=== PATIENT | female | born 1950 | race Caucasian/White ===

== ENCOUNTER → 2017-12-07 | Outpatient (CLI) | payer MEDICARE ==
--- NOTE | 2017-12-07 11:37 | BD ---
EXAMINATION TYPE: MG DEXA axial skeleton. DATE OF EXAM: 12/07/2017 COMPARISON: NONE CLINICAL HISTORY: M81.0 Osteoporosis Height: 64 Weight: 159.1 FRAX RISK QUESTIONS: Alcohol (3 or more units per day): no Family History (Parent hip fracture): no Glucocorticoids (More than 3mos): no (Ex: prednisone, prednisolone, methylprednisolone, dexamethasone, and hydrocortisone). History of Fracture in Adulthood: no Secondary Osteoporosis: 1. Type 1 Diabetes: no 2. Hyperthyroidism: no 3. Menopause before 45: no 4. Malnutrition: no 5. Chronic liver disease: no Rheumatoid Arthritis: no Current Tobacco Use: no RISK FACTORS HISTORY OF: Hip Fracture (Right/Left): no Spine Fracture: no History of Wrist Fracture: no Surgery to Spine/Hip(right/left)/Wrist (right/left): no Family History of Osteoporosis: no Active: yes Diet low in dairy products/other sources of calcium: no/ takes calcium Postmenopausal woman: age 50 Lost more than 2 inches in height since high school: no Frequent falls: no Poor Health: no Hyperparathyroidism: no Adrenal Insufficiency: no MEDICATIONS: lyraca, lexapro, sleep aid, vitamins Additional History: EXAM MEASUREMENTS: Bone mineral densitometry was performed using the Rerecipe System. Bone mineral density as measured about the Lumbar spine is: ----- L1-L4(G/cm2): 1.143 T Score Values are as follows: ----- L2: -0.4 ----- L3: 0.3 ----- L4: 0.8 ----- L1-L4: -0.3 Bone mineral density has: decreased -5.2 % since study of: 12.17.2001 Bone mineral density about the R hip (g/cm2): 0.826 Bone mineral density about the L hip (g/cm2): 0.876 T Score values are as follows: -----R Neck: -1.5 -----L Neck: -1.2 -----R Total: -0.9 -----L Total: -0.5 Bone mineral density has: decreased -9.2 % since study of: 12.17.2001 IMPRESSION: No evidence for osteoporosis or osteopenia. NOTE: T-SCORE=SD OF THE YOUNG ADULT MEAN.
--- NOTE | 2017-12-08 09:20 | MM ---
Reason for exam: screening (asymptomatic). Last mammogram was performed 1 year and 1 month ago. History: Patient is postmenopausal and history of other cancer. Family history of breast cancer in maternal aunt at age 75. Took estrogen for 6 years beginning at age 50. Took progesterone for 6 years beginning at age 50. Physical Findings: A clinical breast exam by your physician is recommended on an annual basis and results should be correlated with mammographic findings. MG 3D Screening Mammo W/Cad Bilateral CC and MLO view(s) were taken. Prior study comparison: November 03, 2016, bilateral MG 3d diag mammo w/cad [facility]. May 01, 2016, right breast MG 3d diag mammo w/cad RT. There are scattered fibroglandular densities. Stable benign calcifications. There is no discrete abnormality. No significant changes when compared with prior studies. ASSESSMENT: Benign, BI-RAD 2 RECOMMENDATION: Routine screening mammogram of both breasts in 1 year.
== END | disposition home or self-care (01) ==
LOC: RADMAMWWP 09:38
PROVIDERS: ATTEND Family Medicine
DX: Z12.31 Encounter for screening mammogram for malignant neoplasm of breast (principal); Z13.820 Encounter for screening for osteoporosis
CPT/HCPCS: 77063; 77067; 77080

== ENCOUNTER → 2018-02-17 | Outpatient (CLI) | payer MEDICARE | END | disposition home or self-care (01) | LOC: LABWHC1 10:22 | PROVIDERS: ATTEND Psychiatry & Neurology Neurology | DX: M54.16 Radiculopathy, lumbar region (principal) | CPT/HCPCS: 36415; 82565 ==

== ENCOUNTER → 2018-02-24 | Outpatient (CLI) | payer MEDICARE ==
--- NOTE | 2018-02-24 10:45 | MR ---
EXAMINATION TYPE: MR lumbar spine wo/w con DATE OF EXAM: 02/24/2018 10:34 AM COMPARISON: NONE HISTORY: lumbar radiculopathy CONTRAST: The patient was injected with 7 mL intravenous Gadavist gadolinium contrast. Multiplanar, MultiSpin echo imaging of the lumbar spine was performed. Severe scoliotic curvature seen convex to the right. L1-L2: Moderate to severe disc desiccation. Circumferential disc bulge greatest posteriorly. Mild eff acement ventral thecal sac. No evidence for herniation or central stenosis. Degenerative change facet joints with mild bilateral foraminal encroachment. L2-L3: Moderate to severe disc desiccation. Circumferential disc bulge greatest posteriorly. Mild eff acement ventral thecal sac. No evidence for herniation or central stenosis. Degenerative change facet joints with mild bilateral foraminal encroachment. L3-L4: Moderate to severe disc desiccation. Circumferential disc bulge greatest posteriorly. Mild eff acement ventral thecal sac. No evidence for herniation or central stenosis. Degenerative change facet joints with mild bilateral foraminal encroachment. L4-L5: Severe disc desiccation. Posterior disc endplate complex. Effacement ventral thecal sac. No ev idence for herniation or central stenosis. Moderate bilateral foraminal encroachment. L5-S1: Severe disc desiccation. Grade 1 anterolisthesis L5 on S1 measuring 4 mm. Posterior disc bulge without herniation or central stenosis. Facet joint arthropathy with bilateral foraminal encroachmen t and moderate to on the right. Lumbar segments are intact. No paraspinal masses are identified. Conus medullaris has a normal appe arance. Ventral spondylosis noted. IMPRESSION: 1. Multilevel degenerative disc disease as discussed. 2. Multilevel disc bulging and foraminal encroachment.
== END ==
LOC: RADMRIMAIN 09:50
PROVIDERS: ATTEND Psychiatry & Neurology Neurology
DX: M51.26 Other intervertebral disc displacement, lumbar region (principal); M43.17 Spondylolisthesis, lumbosacral region; M51.36 Other intervertebral disc degeneration, lumbar region; M46.96 Unspecified inflammatory spondylopathy, lumbar region
CPT/HCPCS: 72158; A9581

== ENCOUNTER → 2018-06-22 | Outpatient (CLI) | payer MEDICARE ==
--- NOTE | 2018-06-22 10:52 | MR ---
EXAMINATION TYPE: MR shoulder RT wo con DATE OF EXAM: 06/22/2018 COMPARISON: Plain film 06/01/2018 HISTORY: Right shoulder pain TECHNIQUE: Multiplanar, multisequence imaging of the right shoulder is performed without contrast. FINDINGS: Rotator Cuff: There is a tear of the supraspinatus tendon with retraction to the level of the acromio n, infraspinatus tendon is markedly attenuated level of its insertion. Acromioclavicular Joint: Arthropathy changes present as noted on plain film Glenohumeral Joint: There is arthropathy change with marginal spurring. Labrum: Superior labrum shows some increased internal signal, there may be SLAP lesion present. Biceps Tendon: Tendon appears attenuated but shows normal position, fluid signal courses along its po sition. Findings could be due to tendinosis Bone marrow signal: There is extensive increased T2 weighted signal within the humeral head which may be due to reactive marrow edema Other: There is a joint effusion present. Fluid is present in the subacromial subdeltoid bursa. Fluid signal also present along the subscapularis tendon is some muscle edema suspected IMPRESSION: Rotator cuff tear and additional findings above.
== END | disposition home or self-care (01) ==
LOC: RADMRIMAIN 09:29
PROVIDERS: ATTEND Orthopaedic Surgery
DX: M75.101 Unspecified rotator cuff tear or rupture of right shoulder, not specified as traumatic (principal)

== ENCOUNTER 2018-08-12 07:24 | Day surgery (SDC) | payer MEDICARE ==
[2018-08-09 14:28] VITALS: BMI 26.6
--- NOTE | 2018-08-11 18:18 | HP ---
HISTORY AND PHYSICAL DATE OF SURGERY: 08/12/2018 Carine Melendez is a 67-year-old patient seen with progressive right shoulder pain. Treatment options were discussed with her. She elected to proceed with right shoulder arthroscopy. Consent was obtained, clearance provided by Dr. Agee. PAST MEDICAL HISTORY: Hypertension. PAST SURGICAL HISTORY: 1. Cholecystectomy. 2. Hand surgery. 3. Right knee arthroscopy. 4. Left shoulder arthroscopy. DAILY MEDICATIONS: 1. Clonazepam. 2. Lexapro. 3. Lyrica. ALLERGIES: NONE. SOCIAL HISTORY: Patient denies tobacco use. PHYSICAL EVALUATION OF THE RIGHT SHOULDER: Flexion is 140 degrees. Abduction is 130 degrees. External rotation is 30 degrees with weakness. Tenderness along the anterolateral acromion and rotator cuff insertion site. Impingement positive at 80 degrees. Drop-arm sign positive. Distal neurovascular exam is intact. RIGHT SHOULDER RADIOGRAPHS: Right shoulder radiographs revealed a type 2 anterior acromion, acromioclavicular joint osteoarthritis and cystic changes of the tuberosity. An MRI of the right shoulder revealed a retracted rotator cuff tear. IMPRESSION: 1. Right shoulder impingement with retracted rotator cuff tear. 2. Right shoulder acromioclavicular joint osteoarthritis. PLAN: Right shoulder arthroscopy with subacromial decompression, possible arthroscopic rotator cuff repair, possible Britta procedure and debridement. MMODL / IJN: [id number] /
[~2018-08-12 07:24] MED LIST: DEXAMETHASONE SOD PHOSPHATE 10 MG/ML 1 ML VIAL IV ONE; HYDROmorphone 0.5 MG/0.5 ML SYRINGE IVP PRN; LACTATED RINGERS 1,000 ML IV SCH; MIDAZOLAM 2 MG/2 ML VIAL IV PRN; ONDANSETRON 4 MG/2 ML VIAL IVP ONE; ceFAZolin 1,000 MG in DEXTROSE/WATER 1 50ML.BAG IV ONE
[2018-08-12] MEDS ORDERED: LIDOCAINE 1% 20 ML VIAL (10MG/ML) FOR IV START INTRADERMA ONE (08:13)
[2018-08-12] MEDS ORDERED: MIDAZOLAM 2 MG/2 ML VIAL ONE ×2 (08:47→09:13)
[2018-08-12] MEDS ORDERED: ROPIVACAINE 5 MG/ML 30 ML VIAL ONE (09:13)
[2018-08-12] MEDS ORDERED: fentaNYL (PF) 50 MCG/ML 2 ML AMP ONE (09:13)
[2018-08-12] MEDS ORDERED: PHENYLEPHRINE-0.9% NACL SYG 1 MG/10 ML SYRINGE ONE (09:13)
[2018-08-12] MEDS ORDERED: PROPOFOL 10 MG/ML 20 ML VIAL IV ONE (09:13)
[2018-08-12] MEDS ORDERED: ePHEDrine SULFATE/0.9% NACL/PF 50 MG/5 ML SYRINGE IV ONE (09:13)
[2018-08-12] MEDS ORDERED: KETOROLAC 30 MG/ML 1 ML VIAL ONE (09:13)
[2018-08-12] MEDS ORDERED: SUCCINYLCHOLINE CHLORIDE 100 MG/5 ML SYR IV ONE (09:13)
[2018-08-12] MEDS ORDERED: LACTATED RINGERS 1,000 ML IV ONE (10:45)
[2018-08-12 11:15] VITALS: TEMP 97
--- NOTE | 2018-08-12 11:16 | P.OP ---
Date of Procedure: 08/12/18 Preoperative Diagnosis: Right shoulder impingement Postoperative Diagnosis: 1. Right shoulder rotator cuff tear 2. Right shoulder impingement 3. Right shoulder acromioclavicular joint osteoarthritis 4. Right shoulder glenohumeral joint osteoarthritis 5. Right shoulder partial long head biceps tendon tear 6. Right shoulder labral tear Procedure(s) Performed: 1. Right shoulder arthroscopic rotator cuff repair 2. Right shoulder arthroscopic subacromial decompression 3. Right shoulder arthroscopic Britta procedure 4. Right shoulder arthroscopic chondroplasty humeral head 5. Right shoulder arthroscopic biceps tenotomy 6 Right shoulder arthroscopic debridement labral tear Implants: 2-4.75 Arthrex swivel lock anchors 2-5.5 Arthrex swivel lock anchors Anesthesia: GETA, regional (Interscalene block) Surgeon: Navin Clay Leather Repairer #1: Clifford Perea Estimated Blood Loss (ml): 8 Pathology: none sent Condition: stable Disposition: PACU Indications for Procedure: 67-year-old patient seen with progressive right shoulder pain. After having treatment options discussed, she elected to proceed with arthroscopy. Operative Findings: See description of procedure Description of Procedure: Patient underwent an interscalene block by department of anesthesia. The patient was then taken to the operative suite. The patient underwent a general anesthetic by the department of anesthesia. The patient was placed into a lateral position and secured. There was appropriate padding of the bony prominence. Right shoulder was then prepped and draped in normal sterile orthopedic fashion. We placed the extremity in 10 pounds of longitudinal traction. A posterior incision was now made for a posterior working portal site. The trocar and cannula were inserted into the glenohumeral joint. Arthroscopy was initiated. Spinal needle was now inserted anteriorly, to ascertain the anterior working portal site. An incision was now made in that area, a trocar was inserted followed by a probe. There were grade 3 and 4 chondromalacia changes of the humeral head with some diffuse osteochondral tears present along the central portion of the humeral head. There were grade 3 chondral moist changes of the glenoid fossa more anteriorly. There was a significant partial tear long head biceps tendon approaching 85%. There was a massive rotator cuff tear clearly visualized from glenohumeral side. There was superficial tearing of the labrum anteriorly and superiorly. No loose bodies were identified. I performed an arthroscopic biceps tenotomy. I debrided the superficial labral tears getting down to stable tissue. I performed a chondroplasty of the humeral head getting down to stable osteochondral tissue. The residual labrum was stable. The residual osteochondral surface was stable. Instruments now removed from glenohumeral joint. Utilizing the posterior working portal site, the trocar and cannula were inserted into the subacromial space. Arthroscopy initiated. I made an incision 2 fingerbreadths lateral to the acromion. I introduced my trocar followed by my ArthroCare ablator. I now began ablating thick subacromial bursal tissue, which exposed the undersurface of the anterior acromion. There was diminished subacromial space. There was a very prominent anterior acromion. A motorized bur was introduced and a subacromial decompression was performed. I also excised some osteophytes off the inferior aspect of the distal clavicle. The AC joint was visualized and noted to be fairly arthritic. The motorized bur was introduced in the anterior portal site and a Britta procedure was performed without difficulty, decompressing the AC joint nicely. I turned my attention to the rotator cuff. There was a 3.5 cm rotator cuff tear with about 1 cm of retraction. I debrided the margins getting down to stable tendon tissue. I introduced my motorized bur and abraded the footprint area, getting some petechial bleeding. I now made an accessory portal site off the lateral aspect of the acromion. I punched 2 holes medial for medial row fixation with the assistance of Uriah READ carefully tapping the punch with a mallet as I held the punch and the camera. I now introduced both anchors into the pre- punched holes and Uriah READ tapped them with the mallet as I held anchors and the camera. Uriah READ now screwed the anchors in place a while I held the anchor guide and camera. All 8 limbs of suture were now passed through good bites of rotator cuff tendon. I now punched 2 holes for lateral row fixation again I held the punch and camera while Uriah READ used a mallet to tap in the punch. We now passed sutures through both anchors and individually I introduced the anchors into the pre-punch holes I held the anchor guide in position with one hand holding the camera with the other hand while Uriah READ tensioned the sutures and screwed in the anchors one at a time. All residual suture limbs were now clipped. There were a few areas with some prominent dogears. I passed additional sutures through those areas introduced and additional anchor laterally which helped bring and compressed those areas down nicely into our abraded footprint. Those sutures were clipped. We had good compression of the tendon along the entire footprint. I injected 1 mL Renue intra-articular Instruments now removed from the portal sites. All portal sites were approximated with nylon suture. Sterile dressings were applied followed by a shoulder immobilizer. Clifford READ assisted in this complex case. The patient was awakened, transferred to a bed, and taken to recovery in stable condition.
[2018-08-12 11:25] VITALS: RESP 16
[2018-08-12 13:00] VITALS: BP 142/67; PULSE 65
--- NOTE | 2018-08-15 08:20 | P.ONQ ---
Anesthesiology Proc Note - PNB - Peripheral Nerve Block Performed Interscalene Single Time Out Performed: Yes Procedure Start Time: 08:50 Procedure Stop Time: :54 Indication: Acute Post-Operative Pain, Requested by physician Sedation Type: Sedate with meaningful contact maintained Preparation: Sterile Prep Needle Size: 50mm (2") Needle Gauge: 21 Technique: Ultrasound Injectate: 0.5% Ropivacaine (see comment for volume) (ropi .5% 30cc) Blood Aspirated: No Pain Paresthesia on Injection Noted: No Resistance on Injection: Normal Events: Uneventful and Well Tolerated
== END 2018-08-12 13:29 | disposition home or self-care (01) ==
LOC: OR 07:24
PROVIDERS: ATTEND Orthopaedic Surgery
DX: M75.101 Unspecified rotator cuff tear or rupture of right shoulder, not specified as traumatic (principal); M75.41 Impingement syndrome of right shoulder; M19.011 Primary osteoarthritis, right shoulder; S46.111A Strain of muscle, fascia and tendon of long head of biceps, right arm, initial encounter; S43.491A Other sprain of right shoulder joint, initial encounter; X58.XXXA Exposure to other specified factors, initial encounter; M94.211 Chondromalacia, right shoulder; M25.711 Osteophyte, right shoulder; F32.9 Major depressive disorder, single episode, unspecified; Z79.899 Other long term (current) drug therapy; Z79.82 Long term (current) use of aspirin; Z90.49 Acquired absence of other specified parts of digestive tract
CPT/HCPCS: 29824; 29827; 29826; 64415; 84132; C1713 ×3; C1894; C1765; J2250; J1100; J2405; J3010; J1885; J0690; J2795; J2370; J0330; J2704

== ENCOUNTER → 2018-12-03 | Outpatient (CLI) | payer MEDICARE | END | disposition home or self-care (01) | LOC: LABPAT 11:30 | PROVIDERS: ATTEND Orthopaedic Surgery | DX: Z01.812 Encounter for preprocedural laboratory examination (principal) | CPT/HCPCS: 87070 ==

== ENCOUNTER → 2018-12-08 | Outpatient (CLI) | payer MEDICARE ==
--- NOTE | 2018-12-12 14:43 | MM ---
Reason for exam: screening (asymptomatic). Last mammogram was performed 1 year ago. History: Patient is postmenopausal and history of other cancer. Family history of breast cancer in maternal aunt at age 75. Took estrogen for 6 years beginning at age 50. Took progesterone for 6 years beginning at age 50. MG 3D Screening Mammo W/Cad Bilateral CC and MLO view(s) were taken. Prior study comparison: December 07, 2017, bilateral MG 3d screening mammo w/cad. November 03, 2016, bilateral MG 3d diag mammo w/cad [facility]. There are scattered fibroglandular densities. There is a stable focal asymmetry in the left upper anterior breast. No significant changes when compared with prior studies. ASSESSMENT: Benign, BI-RAD 2 RECOMMENDATION: Routine screening mammogram of both breasts in 1 year.
== END | disposition home or self-care (01) ==
LOC: RADMAMWWP 08:43
PROVIDERS: ATTEND Family Medicine
DX: Z12.31 Encounter for screening mammogram for malignant neoplasm of breast (principal)
CPT/HCPCS: 77063; 77067

== ENCOUNTER 2019-01-10 07:57 | Inpatient (IN) | payer MEDICARE ==
--- NOTE | 2019-01-09 11:09 | HP ---
HISTORY AND PHYSICAL REASON FOR ADMISSION: Surgery scheduled for 01/10/2019 HISTORY OF PRESENT ILLNESS: Carine Melendez is a 68-year-old patient seen with painful unstable right total knee arthroplasty. Failing conservative treatment measures. We discussed options. She elected to proceed with revision right total knee arthroplasty. Consent regarding procedure obtained. Medical clearance was provided by Dr. Agee. PAST MEDICAL HISTORY: Hypertension. PAST SURGICAL HISTORY: Cholecystectomy, right knee arthroscopy, right total knee arthroplasty, shoulder arthroscopy. MEDICATIONS: , Lexapro, Lyrica, [id number] vitamins. ALLERGIES: None reported. SOCIAL HISTORY: She denies current tobacco use. PHYSICAL EXAMINATION: Evaluation of the right knee range of motion is +1 to 130. She has +3 Saray, +1 MCL. Hip rotation without pain. Distal neurovascular exam intact. RADIOGRAPHS: Radiographs of the right knee revealed a stable-appearing total knee arthroplasty. IMPRESSION: Painful/unstable right total knee arthroplasty. PLAN: Revision right total knee arthroplasty. Surgery scheduled for 01/10/2019. MMODL / IJN: [id number] /
[~2019-01-10 07:57] MED LIST changes: +ACETAMINOPHEN TAB 500 MG TAB PO ONE; -DEXAMETHASONE SOD PHOSPHATE 10 MG/ML 1 ML VIAL IV ONE; -HYDROmorphone 0.5 MG/0.5 ML SYRINGE IVP PRN; -LACTATED RINGERS 1,000 ML IV SCH; +LIDOCAINE 1% 20 ML VIAL (10MG/ML) FOR IV START INTRADERMA PRN; +MELOXICAM 7.5 MG TAB PO ONE; +MIDAZOLAM (PF) 2 MG/2 ML VIAL IV PRN; -MIDAZOLAM 2 MG/2 ML VIAL IV PRN; -ONDANSETRON 4 MG/2 ML VIAL IVP ONE; +TRANEXAMIC ACID 1,000 MG in SODIUM CHLORIDE 0.9% 100 ML IVPB ONE; -ceFAZolin 1,000 MG in DEXTROSE/WATER 1 50ML.BAG IV ONE; +ceFAZolin IN SWFI 2 GM/20 ML SYRINGE IVP ONE; +fentaNYL (PF) 50 MCG/ML 2 ML AMP IV PRN; +fentaNYL (PF) 50 MCG/ML 2 ML AMP IVP PRN
[2019-01-10 08:14] VITALS: RESP 16
[2019-01-10] MEDS: LACTATED RINGERS 1,000 ML IV SCH ×3 (08:41→17:43)
[2019-01-10] MEDS ORDERED: ONDANSETRON 4 MG/2 ML VIAL IVP ONE ×2 (08:48)
[2019-01-10] MEDS ORDERED: DEXAMETHASONE SOD PHOSPHATE 10 MG/ML 1 ML VIAL IV ONE ×2 (08:49)
[2019-01-10] MEDS ORDERED: MIDAZOLAM 2 MG/2 ML VIAL IV ONE (08:52)
[2019-01-10] MEDS ORDERED: ROPIVACAINE 1,100 MG, SODIUM CHLORIDE 0.9% 500 ML 330 ML MISCELLANE PRN ×2 (09:11)
--- NOTE | 2019-01-10 09:12 | P.ONQ ---
Anesthesiology Proc Note - PNB - Peripheral Nerve Block Performed Right Adductor Canal Infusion Time Out Performed: Yes Procedure Start Time: 08:53 Procedure Stop Time: 09:15 Indication: Acute Post-Operative Pain, Requested by physician Sedation Type: Sedate with meaningful contact maintained Preparation: Sterile Dressing Position: Supine Catheter: Indwelling Needle Types: On-Q Needle Size: 100mm (4") Needle Gauge: 21 Technique: Ultrasound Injectate: 0.5% Ropivacaine (see comment for volume) (ropi .5% 20cc) Blood Aspirated: No Pain Paresthesia on Injection Noted: No Resistance on Injection: Normal Events: Uneventful and Well Tolerated
[2019-01-10] MEDS ORDERED: MIDAZOLAM 2 MG/2 ML VIAL ONE (09:46)
[2019-01-10] MEDS ORDERED: SODIUM CHLORIDE 0.9% 100 ML BAG ONE (09:46)
[2019-01-10] MEDS ORDERED: TRANEXAMIC ACID 1,000 MG/10 ML VIAL ONE (09:46)
[2019-01-10] MEDS ORDERED: PROPOFOL 10 MG/ML 20 ML VIAL IV ONE (09:46)
[2019-01-10] MEDS ORDERED: fentaNYL (PF) 50 MCG/ML 2 ML AMP ONE (09:46)
[2019-01-10] MEDS ORDERED: ceFAZolin 3,000 MG in SODIUM CHLORIDE 0.9% IRRIGATIO 3,000 ML IRRIGATION ONE (09:51)
[2019-01-10] MEDS: ROPIVACAINE 246.25 MG, EPINEPHrine 0.5 MG, KETOROLAC 30 MG, cloNIDine HCL/PF 80 MCG, WA... MISCELLANE ONE ×10 (10:18→11:40)
[2019-01-10] MEDS ORDERED: LACTATED RINGERS 1,000 ML IV ONE ×2 (10:45)
--- NOTE | 2019-01-10 12:19 | P.OP ---
Date of Procedure: 01/10/19 Preoperative Diagnosis: Painful/unstable right total knee arthroplasty Postoperative Diagnosis: Same Procedure(s) Performed: Revision right total knee arthroplasty Implants: 1. Depuy Sigma TC 3 size 2.5 right cemented femur with an appropriate femoral adapter and bulk 75 mm x 14 mm fluted and a full porous 31 mm femoral sleeve 2. Depuy Sigma cemented rotating MBT revision size 2 tibial baseplate with a 37 mm metaphyseal porous coated sleeve and 75 x 14 mm fluted stem 3. Depuy Sigma polyethylene tibial rotating platform TC 3 size 2-20 mm Anesthesia: regional (Adductor canal catheter), local, spinal Surgeon: Navin Clay Credit Administrator #1: Clifford Perea Estimated Blood Loss (ml): 75 Pathology: none sent Condition: stable Disposition: PACU Indications for Procedure: 68patient seen with a unstable/painful right total knee arthroplasty failing conservative treatment measures. After we had discussed options she elected to proceed with revision right total knee arthroplasty. Operative Findings: See description of procedure Description of Procedure: The patient was taken to the operative suite after having and adductor canal catheter placed by the department of anesthesia. She received preoperative IV antibiotics. She underwent a spinal anesthetic by the department of anesthesia. A well-padded tourniquet was placed on the proximal right thigh. The right lower extremity was prepped and draped in the normal sterile orthopedic fashion. The extremity was elevated and the tourniquet was insufflated to 300. An incision was now made over the previous cicatrix sharply through skin. Dissection was taken down to the extensor mechanism. A medial arthrotomy was performed. The patella was everted and knee was flexed. There was obvious significant instability mid flexion but also even in extension and flexion. We remove the polyethylene component. I used a small saw blade to get between the bone cement interface. The femur came out with no difficulty at all and seemed actually somewhat loose. We now used the same technique to remove the tibia the tibia was well cemented, with a fair amount of bone attached to it. I began serial reaming the tibia until I got to the right size for fixation for stem. We now began with our tibial side using our broaches for sleeve until we got to the right size. A freshen up cut was now made. We now turned our attention to the femur. We began serial reaming until the right size for stability was noted. We now attached the distal femoral cutting jig and made appropriate cuts freshening up the distal femur were made. At this point we began serial broaching for our sleeve until we got to the right size. At this point trial components were placed in position. I took the knee through range of motion and increase polyethylene until the right size gave us the appropriate stability. The patella tracked well and it was stable and secure. We now removed her trial components. I now irrigated the wound copiously with pulse lavage mechanical irrigation. I used local analgesic infiltrated the posterior capsule. We now chose a appropriate components and they were assembled on the back table with my assistance as well as Uriah READ's assistance. We now began mixing her methylmethacrylate. Once it was ready was placed behind knee components making sure not to get onto the porous sleeves. We reintroduced our tibial component tapped down until was secure. We now introduced our femoral component tapping it down until secure. All excess methacrylate was removed. We inserted a 17.5 by a thin tibial insert. When taken to extension and noted some hyperextension of the knee. We kept the polyethylene in position until the methyl fact relate hardened. We now removed that 17.5 polyethylene tibial insert. I trialed a 20 mm insert and it fit much better. We now chose the 20 mm rotating platform polyethylene tibial insert and placed into position. I took the knee through range of motion with good overall range of motion and excellent stability at this point. The tourniquet was released. Additional hemostasis was achieved via electrocautery. The subcu soft tissues were infiltrated local analgesic. We repaired the extensor mechanism with #3 Vicryl. We checked the repair and it was stable. Subcutaneous soft tissues were repaired in layers with 2-0 Vicryl. The skin was approximated with cutaneous suture and exophin skin glue. Sterile dressings were applied followed by loose webril and Ilir bandage. Uriah READ assisted with this complex procedure.
[2019-01-10] MEDS ORDERED: ONDANSETRON 4 MG/2 ML VIAL IVP PRN (12:20)
[2019-01-10] MEDS ORDERED: NALOXONE 0.4 MG/ML 1 ML VIAL IV PRN (12:20)
[2019-01-10] MEDS ORDERED: HYDROcodone/APAP 5-325MG 1 EACH TAB PO PRN (12:20)
[2019-01-10] MEDS ORDERED: traMADol 50 MG TAB PO PRN (12:20)
[2019-01-10] MEDS ORDERED: HYDROmorphone 0.5 MG/0.5 ML SYRINGE IVP PRN ×3 (12:20)
--- NOTE | 2019-01-10 13:01 | XR ---
EXAMINATION TYPE: XR knee limited RT DATE OF EXAM: 01/10/2019 COMPARISON: 09/11/2014 HISTORY: Knee prosthesis revision TECHNIQUE: 2 view right knee FINDINGS: Tibial and femoral components of in place. Postsurgical changes are within the soft tissues . Small chip fracture from the lateral femoral condyle not excluded. No additional areas suspicious for fracture are evident. IMPRESSION: 1. Small nondisplaced chip fracture of the lateral femoral condyle may be present on the frontal pro jection. 2. No additional areas suspicious for fracture is evident.
[2019-01-10 15:49] VITALS: BMI 27.1
--- NOTE | 2019-01-10 15:55 | P.CONS ---
History of Present Illness - Reason for Consult Consult date: 01/10/19 medical management Requesting physician: Navin Clay - History of Present Illness This is a [address] Agee. Patient presented for an elective right total knee arthoplasty revision with Dr. Clay. patient has past medical history of skin cancer, osteoarthritis, herniated disc in back and anxiety. patient denies any cardiac history. Patient denies diabetes or COPD. At this time patient denies chest pain or shortness of breath. Patient denies nausea vomiting or diarrhea. Patient denies any urinary burning or frequency. Review of Systems please refer to HPI otherwise unremarkable Past Medical History Past Medical History: Cancer, Osteoarthritis (OA) Additional Past Medical History / Comment(s): SCOLIOSIS, HERNIATED DISC WITH BACK PAIN, HX SKIN CANCER. RIGHT KNEE PAIN. History of Any Multi-Drug Resistant Organisms: None Reported Past Surgical History: Cholecystectomy, Joint Replacement, Orthopedic Surgery Additional Past Surgical History / Comment(s): RIGHT KNEE ARTHROSCOPY, TOTAL RIGHT KNEE (AUG 2014), RIGHT ROTATOR CUFF., HEIDY CARPAL TUNNEL. LEFT SHOULDER X3. Past Anesthesia/Blood Transfusion Reactions: No Reported Reaction Past Psychological History: Anxiety Smoking Status: Never smoker Past Alcohol Use History: None Reported Past Drug Use History: None Reported - Past Family History Father Family Medical History: Diabetes Mellitus Medications and Allergies Home Medications Medication Instructions Recorded Confirmed Type Aspirin [Adult Low Dose Aspirin EC] 81 mg PO DAILY 08/12/18 01/10/19 History Escitalopram [Lexapro] 5 mg PO DAILY 08/12/18 01/10/19 History Fish Oil/Dha/Epa [Fish Oil 1,200 1 cap PO DAILY 08/12/18 01/10/19 History mg Fish Oil] Multivitamins, Thera [Multivitamin 1 tab PO DAILY 08/12/18 01/10/19 History (formulary)] Pregabalin [Lyrica] 50 mg PO HS 08/12/18 01/10/19 History Cranberry Fruit Extract [Cranberry] 500 mg PO DAILY 01/03/19 01/10/19 History L.acidoph,Paracasei, B.lactis 1 cap PO DAILY 01/03/19 01/10/19 History [Probiotic] Naproxen Sodium [Aleve] 440 mg PO BID PRN 01/03/19 01/10/19 History Turmeric Root Extract [Turmeric] 1,000 mg PO DAILY 01/03/19 01/10/19 History Vit C/E/Zn/Coppr/Lutein/Zeaxan 1 cap PO DAILY 01/03/19 01/10/19 History [Preservision Areds 2 Softgel] clonazePAM [KlonoPIN] 1 mg PO HS 01/03/19 01/10/19 History Allergies Allergy/AdvReac Type Severity Reaction Status Date / Time No Known Allergies Allergy Verified 01/10/19 12:09 Physical Exam Vitals: Vital Signs Temp Pulse Resp BP Pulse Ox 01/10/19 13:18 75 16 127/65 96 01/10/19 13:01 71 16 129/66 97 01/10/19 12:47 70 16 131/62 98 01/10/19 12:33 97.8 F 77 16 128/62 100 01/10/19 08:13 98.4 F 68 16 156/79 97 Intake and Output 01/10/19 01/10/19 01/10/19 06:59 14:59 22:59 Intake Total 1251 Output Total 75 Balance 1176 Intake: IV 1251 Output: Estimated Blood Loss 75 Head normocephalic Neck supple Lungs clear to auscultation bilaterally no wheezing or crackles Heart regular rate and rhythm S1-S2, no rub or gallop Abdomen is soft nontender nondistended positive bowel sounds no hepatosplenomegaly Extremities no edema. Right knee dressing clean dry and intact Neuro alert and orientated to 3 Assessment and Plan Assessment: 1. Status post right knee arthroplasty revision with Dr. Milian. Patient currently on Lovenox for DVT prophylaxis pain meds per orthopedic services 2. History of anxiety. Home meds resumed 3. History of osteoarthritis 4.history of herniated disc with back pain 5. History of skin cancer 6. History of previous total right knee in August 2014 7. History of Right rotator cuff surgery DVT prophylaxis Lovenox. GI prophylaxis Protonix thank you for this consultation we'll continue to follow patient closely throughout stay AM labs have been ordered Time with Patient: Greater than 30 (Greater than 60% of the total time spent in counseling and coordination of care. I performed an examination of the patient and discussed their management with the Nurse Practitioner. I have reviewed the Nurse Practitioner's notes and agree with the documented findings and plan of care)
[2019-01-10] MEDS: ceFAZolin IN SWFI 2 GM/20 ML SYRINGE IVP SCH (17:43)
[2019-01-10] MEDS: ENOXAPARIN 30 MG/0.3 ML SYRINGE SQ SCH (20:47)
[2019-01-10] MEDS ORDERED: SENNOSIDES-DOCUSATE SODIUM 1 EACH TAB PO SCH (21:00)
[2019-01-10] MEDS ORDERED: clonazePAM 1 MG TAB PO SCH (21:00)
[2019-01-10] MEDS ORDERED: PREGABALIN 50 MG CAP PO SCH (21:00)
[2019-01-11] MEDS: ceFAZolin IN SWFI 2 GM/20 ML SYRINGE IVP SCH (00:33)
[2019-01-11] MEDS: LACTATED RINGERS 1,000 ML IV SCH ×3 (01:22→11:12)
[2019-01-11] MEDS ORDERED: PANTOPRAZOLE 40 MG TABLET PO SCH (07:30)
[2019-01-11 07:49] VITALS: BP 124/77; PULSE 65; TEMP 98.3
[2019-01-11] MEDS: ENOXAPARIN 30 MG/0.3 ML SYRINGE SQ SCH (08:10)
[2019-01-11] MEDS: HYDROcodone/APAP 5-325MG 1 EACH TAB PO PRN ×2 (08:10→14:55)
[2019-01-11] MEDS ORDERED: MELOXICAM 7.5 MG TAB PO SCH (09:00)
[2019-01-11] MEDS ORDERED: ESCITALOPRAM 5 MG TAB PO SCH (09:00)
[2019-01-11] MEDS ORDERED: LACTOBACILLUS ACIDOPH & BULGAR 1 EACH PACKET PO SCH (09:00)
[2019-01-11 09:17] LABS: Basophils % (A) 0 %; Eosinophils # (A) 0.1 k/uL (0-0.7); Eosinophils % (A) 1 %; HGB 11.4 gm/dL (11.4-16.0); Lymphocytes # (A) 1.2 k/uL (1.0-4.8); Lymphocytes % (A) 16 %; MCH 31.8 pg (25.0-35.0); MCHC 32.6 g/dL (31.0-37.0); MCV 97.5 fL (80.0-100.0); Mean Platelet Volume 6.7; Monocytes # (A) 0.4 k/uL (0-1.0); Monocytes % (A) 5 %; Neutrophils # (A) 5.7 k/uL (1.3-7.7); Neutrophils % (A) 76 %; Platelet Count 199 k/uL (150-450); RBC 3.59 m/uL (3.80-5.40); WBC 7.6 k/uL (3.8-10.6)
[2019-01-11 09:33] LABS: ALT 58 U/L (9-52); AST 75 U/L (14-36); Albumin 3.2 g/dL (3.5-5.0); Alkaline Phosphatase 77 U/L (38-126); Anion Gap 6 mmol/L; Blood Urea Nitrogen 18 mg/dL (7-17); Calcium 8.8 mg/dL (8.4-10.2); Carbon Dioxide 26 mmol/L (22-30); Chloride 107 mmol/L (98-107); Glucose 118 mg/dL (74-99); Potassium 4.7 mmol/L (3.5-5.1); Sodium 139 mmol/L (137-145); Total Bilirubin 1.1 mg/dL (0.2-1.3); Total Protein 5.8 g/dL (6.3-8.2)
--- NOTE | 2019-01-11 11:15 | P.PN ---
Subjective Progress Note Date: 01/11/19 This is a [address] Agee. Patient presented for an elective right total knee arthoplasty revision with Dr. Clay. patient has past medical history of skin cancer, osteoarthritis, herniated disc in back and anxiety. patient denies any cardiac history. Patient denies diabetes or COPD. At this time patient denies chest pain or shortness of breath. Patient denies nausea vomiting or diarrhea. Patient denies any urinary burning or frequency. On 01/11/2018 patient is alert and oriented 3. Patient is resting comfortably in bed with minimal pain to left knee. Patient has been up ambulating halls. Patient denies any chest pain or shortness breath. Patient denies nausea vomiting or diarrhea. Patient denies any urinary burning or frequency Objective - Vital Signs Vital signs: Vital Signs Temp 98.3 F 01/11/19 07:00 Pulse 65 01/11/19 07:00 Resp 16 01/11/19 08:00 BP 124/77 01/11/19 07:00 Pulse Ox 96 01/10/19 23:51 Intake & Output 01/10/19 01/11/19 01/11/19 18:59 06:59 18:59 Intake Total 1251 720 180 Output Total 75 Balance 1176 720 180 Intake: IV 1251 Intake, IV Titration 720 Amount Lactated Ringers 1,000 ml 720 @ 80 mls/hr IV .[id number] [facility] Rx#:[id number] Oral 180 Output: Estimated Blood Loss 75 - Exam Head normocephalic Neck supple Lungs clear to auscultation bilaterally no wheezing or crackles Heart regular rate and rhythm S1-S2, no rub or gallop Abdomen is soft nontender nondistended positive bowel sounds no hepatosplenomegaly Extremities no edema. Right knee dressing clean dry and intact Neuro alert and orientated to 3 - Labs CBC & Chem 7: 01/11/19 08:14 01/11/19 08:14 Labs: Abnormal Lab Results - Last 24 Hours (Table) 01/11/19 01/11/19 Range/Units 08:14 08:14 RBC 3.59 L (3.80-5.40) m/uL BUN 18 H (7-17) mg/dL Glucose 118 H (74-99) mg/dL AST 75 H (14-36) U/L ALT 58 H (9-52) U/L Total Protein 5.8 L (6.3-8.2) g/dL Albumin 3.2 L (3.5-5.0) g/dL Assessment and Plan Assessment: 1. Status post right knee arthroplasty revision with Dr. Milian. Patient currently on Lovenox for DVT prophylaxis pain meds per orthopedic services 2. History of anxiety. Home meds resumed 3. History of osteoarthritis 4.history of herniated disc with back pain 5. History of skin cancer 6. History of previous total right knee in August 2014 7. History of Right rotator cuff surgery 8. Elevated liver enzymes. AST 75 ALT 58. We'll continue to monitor DVT prophylaxis Lovenox. GI prophylaxis Protonix thank you for this consultation we'll continue to follow patient closely throughout stay CMP will be ordered for 3 days to follow-up for liver enzymes patient to follow- up with PCP Patient planned to be DC'd home when cleared by orthopedics I performed an examination of the patient and discussed their management with the Nurse Practitioner. I have reviewed the Nurse Practitioner's notes and agree with the documented findings and plan of care
[2019-01-11] MEDS ORDERED: MULTIVITAMINS, THERA 1 EACH TAB PO SCH (12:00)
--- NOTE | 2019-01-11 12:30 | P.PN ---
Progress Note - Text 01/11 650am 68-year-old female status post total knee replacement by Dr. Clay. Patient has an On-Q pump for postop pain control with the solution running at 8 mL an hour. Patient seen this morning she has a VAS of 2. Plan to continue On- Q pump infusion
--- NOTE | 2019-01-11 12:37 | P.PN ---
Subjective Progress Note Date: 01/11/19 Principal diagnosis: Status post revision right total knee arthroplasty Patient is evaluated today at bedside, she was resting comfortably. She's ambulated well with therapy. She is urinating on her own. She denies any fevers or chills. Objective - Vital Signs Vital signs: Vital Signs Temp 98.3 F 01/11/19 07:00 Pulse 65 01/11/19 07:00 Resp 16 01/11/19 08:00 BP 124/77 01/11/19 07:00 Pulse Ox 96 01/10/19 23:51 Intake & Output 01/10/19 01/11/19 01/11/19 18:59 06:59 18:59 Intake Total 1251 720 180 Output Total 75 Balance 1176 720 180 Intake: IV 1251 Intake, IV Titration 720 Amount Lactated Ringers 1,000 ml 720 @ 80 mls/hr IV .[id number] [facility] Rx#:[id number] Oral 180 Output: Estimated Blood Loss 75 - Exam Right lower extremity: Incision is clean, dry, and intact. The exofin fusion tape is in good condition. There is minimal soft tissue swelling and ecchymosis surrounding the medial and lateral aspects of the incision. Calf is soft, no tenderness with palpation. Plantar flexion, dorsiflexion, EHL, FHL are intact. Sensory exam to light touch throughout the extremity is intact, dorsal pedis pulses 2+. - Labs CBC & Chem 7: 01/11/19 08:14 01/11/19 08:14 Labs: Abnormal Lab Results - Last 24 Hours (Table) 01/11/19 01/11/19 Range/Units 08:14 08:14 RBC 3.59 L (3.80-5.40) m/uL BUN 18 H (7-17) mg/dL Glucose 118 H (74-99) mg/dL AST 75 H (14-36) U/L ALT 58 H (9-52) U/L Total Protein 5.8 L (6.3-8.2) g/dL Albumin 3.2 L (3.5-5.0) g/dL Assessment and Plan Plan: Assessment: 1. Postop day #1 status post revision right total knee arthroplasty Plan: Pain control, we'll discharge home on oral medication GI and DVT prophylaxis, aspirin 81 mg twice a day Wound care instructions discussed Home therapy and nursing after discharge Medical recommendations Discharge planning: Plan for discharge home today Time with Patient: Less than 30
--- NOTE | 2019-01-11 12:41 | P.DS ---
Providers Date of admission: 01/10/19 07:57 Expected date of discharge: 01/11/19 Attending physician: Navin Clay Consults: 01/10/19 12:20 Consult Physician Routine Consulting Provider: Kenyetta Agee Consult Reason/Comments: Medical management Do you want consulting provider notified?: Yes 01/11/19 07:42 Consult Physician Routine Consulting Provider: Saulo Hoyos Consult Reason/Comments: medical management Do you want consulting provider notified?: Already Contacted Primary care physician: Kenyetta Aege Hospital Course: Date of admission: 01/10/2019 Date of discharge: 01/11/2019 Admission diagnosis: Status post revision right total knee arthroplasty Discharge diagnosis: Same Attending physician: Dr. Clay Surgical procedures: Revision right total knee arthroplasty Brief history: Patient is a 68-year-old female with a history of with a painful right total knee arthroplasty. At this point patient has failed conservative treatment measures and has opted to proceed with a elective revision right total knee arthroplasty. Hospital course: Details of patient's surgery can be found in operative report. Patient tolerated the procedure well and was subsequently transported to orthopedic floor. Patient's orthopeidc and medical care was provided daily. Patient had daily laboratory tests performed for evaluation of overall blood counts. Patient had daily physical therapy to include strengthening range of motion as well as education with walker ambulation. Patient had daily CPM usage as part of their physical therapy program. Patient was treated with Lovenox for their postoperative DVT prophylaxis during their inpatient stay. Patient was noted to have a relatively uneventful postoperative course. Patient reported satisfactory pain control with oral pain medications by postoperative day 0. Patient showed satisfactory progress with physical therapy. Patient moved steadily through the program and had no difficulty meeting the goals by postoperative day 1. Given patient's otherwise satisfactory course and having met physical therapy goals, plan is to discharge patient home on postoperative day 1. Discharge condition/disposition: Patient will be discharged home in stable condition. Discharge medications: Instructions are given on resumption of patient's normal daily medications per primary care recommendation, in addition patient will be prescribed [place] 5 mg/25 mg, tramadol 50 mg, Colace 100 mg, aspirin 81 mg. Discharge instructions: 1. Wound care and infection precautions, [keep incision dry and covered while showering], no lotions, creams, moisturizers. No soaking, tubs, pools, hottubs. Do not scrub over the incision. 2. Weight-bear [as tolerated] with walker / cane until follow-up. 3. Ice and elevate when necessary. Do not exceed 20 minutes per hour with ice pack. 4. Utilize compression sleeve until seen at first follow up appointment. 5. Visiting nursing care. 6. Home physical therapy [including home CPM]. 7. Pain meds and anticoagulants per prescription. 8. Pain medication has potential to cause constipation. Increase oral fluid and fiber intake. Contact primary care provider if you have not had a bowel movement within 48 hours after discharge 9. No anti-inflammatory medication until discussed at first post operative visit, this including Motrin, Aleve, Mobic, Diclofenac. 10. Follow up in office at 2 weeks postop with Uriah Perea PA-C 11. Follow up with your primary care doctor 7-10 days after discharge. 12. Contact [facility] with any questions, . Procedures: Revision right total knee arthroplasty Patient Condition at Discharge: Good Plan - Discharge Summary Discharge Rx Participant: Yes New Discharge Prescriptions: New Aspirin [Adult Low Dose Aspirin EC] 81 mg PO BID #60 tablet. Docusate [Colace] 100 mg PO DAILY #30 capsule Hydrocodone/Acetaminophen [[place] 5-325] 1 - 2 each PO Q6HR PRN #40 tab PRN Reason: Pain traMADol HCl [Ultram] 50 mg PO Q6H PRN #28 tab PRN Reason: Pain No Action Escitalopram [Lexapro] 5 mg PO DAILY Pregabalin [Lyrica] 50 mg PO HS Fish Oil/Dha/Epa [Fish Oil 1,200 mg Fish Oil] 1 cap PO DAILY Multivitamins, Thera [Multivitamin (formulary)] 1 tab PO DAILY clonazePAM [KlonoPIN] 1 mg PO HS Naproxen Sodium [Aleve] 440 mg PO BID PRN PRN Reason: Pain Turmeric Root Extract [Turmeric] 1,000 mg PO DAILY L.acidoph,Paracasei, B.lactis [Probiotic] 1 cap PO DAILY Cranberry Fruit Extract [Cranberry] 500 mg PO DAILY Vit C/E/Zn/Coppr/Lutein/Zeaxan [Preservision Areds 2 Softgel] 1 cap PO DAILY Discharge Medication List Escitalopram [Lexapro] 5 mg PO DAILY 08/12/18 [History] Fish Oil/Dha/Epa [Fish Oil 1,200 mg Fish Oil] 1 cap PO DAILY 08/12/18 [History] Multivitamins, Thera [Multivitamin (formulary)] 1 tab PO DAILY 08/12/18 [History ] Pregabalin [Lyrica] 50 mg PO HS 08/12/18 [History] Cranberry Fruit Extract [Cranberry] 500 mg PO DAILY 01/03/19 [History] L.acidoph,Paracasei, B.lactis [Probiotic] 1 cap PO DAILY 01/03/19 [History] Naproxen Sodium [Aleve] 440 mg PO BID PRN 01/03/19 [History] Turmeric Root Extract [Turmeric] 1,000 mg PO DAILY 01/03/19 [History] Vit C/E/Zn/Coppr/Lutein/Zeaxan [Preservision Areds 2 Softgel] 1 cap PO DAILY [History] clonazePAM [KlonoPIN] 1 mg PO HS 01/03/19 [History] Aspirin [Adult Low Dose Aspirin EC] 81 mg PO BID #60 tablet.dr 01/11/19 [Rx] Docusate [Colace] 100 mg PO DAILY #30 capsule 01/11/19 [Rx] Hydrocodone/Acetaminophen [[place] 5-325] 1 - 2 each PO Q6HR PRN #40 tab 01/11/19 [Rx] traMADol HCl [Ultram] 50 mg PO Q6H PRN #28 tab 01/11/19 [Rx] Follow up Appointment(s)/Referral(s): Kenyetta Agee MD [Primary Care Provider] - 01/18/19 1:00 pm [facility], [NON-STAFF] - Clifford Perea PAC [PHYSICIAN ROUTE AIDE] - 01/26/19 2:30 pm Ambulatory/Diagnostic Orders: Comprehensive Metabolic Panel [LAB.AMB] Time Frame: 3 Days, Location: None Selected Activity/Diet/Wound Care/Special Instructions: Orthopedic Discharge Instructions: 1. Wound care and infection precautions, keep incision dry and covered while showering, no lotions, creams, moisturizers. No soaking, pools, hot tubs. Do not scrub over incision. 2. Weight-bear as tolerated with walker / cane until follow-up. 3. Ice and elevate when necessary. Do not exceed 20 minutes per hour with ice pack. 4. Utilize compression sleeve until seen at first follow up appointment. 5. Pain meds and anticoagulants per prescription. 6. Pain medication has potential to cause constipation. Increase oral fluid and fiber intake. Contact primary care provider if you have not had a bowel movement within 48 hours after discharge. 7. No anti-inflammatory medication until discussed at first post operative visit, this including Motrin, Aleve, Mobic, Diclofenac. 8. Follow up in office at 2 weeks postop with Uriah Perea PA-C 9. Follow up with your primary care doctor 7-10 days after discharge. 10. Contact [facility] with any questions, . Discharge Disposition: HOME WITH HOME HEALTH SERVICES
== END 2019-01-11 15:00 | disposition home health service (06) | DRG 468 ==
LOC: 2ORMAIN 07:57 → 4SSUR 12:06
PROVIDERS: ADMIT Orthopaedic Surgery; ATTEND Orthopaedic Surgery
PROC: 0SRC0J9 Replacement of Right Knee Joint with Synthetic Substitute, Cemented, Open Approach (ICD-10-PCS; 2019-01-10)
PROC: 0SPC0JZ Removal of Synthetic Substitute from Right Knee Joint, Open Approach (ICD-10-PCS; principal; 2019-01-10 10:00)
DX: T84.84XA Pain due to internal orthopedic prosthetic devices, implants and grafts, initial encounter (principal); T84.022A Instability of internal right knee prosthesis, initial encounter; M41.9 Scoliosis, unspecified; F41.9 Anxiety disorder, unspecified; I10 Essential (primary) hypertension; F32.9 Major depressive disorder, single episode, unspecified; G47.00 Insomnia, unspecified; M47.9 Spondylosis, unspecified; M54.9 Dorsalgia, unspecified; R74.8 Abnormal levels of other serum enzymes; Z79.899 Other long term (current) drug therapy; Z85.828 Personal history of other malignant neoplasm of skin; Z90.49 Acquired absence of other specified parts of digestive tract; Y79.2 Prosthetic and other implants, materials and accessory orthopedic devices associated with adverse incidents; Y83.1 Surgical operation with implant of artificial internal device as the cause of abnormal reaction of the patient, or of later complication, without mention of misadventure at the time of the procedure; Z83.3 Family history of diabetes mellitus
CPT/HCPCS: 80053; 85025

== ENCOUNTER → 2020-01-03 | Outpatient (CLI) | payer MEDICARE ==
--- NOTE | 2020-01-05 09:58 | MM ---
Reason for exam: screening (asymptomatic). Last mammogram was performed 1 year and 1 month ago. History: Patient is postmenopausal and history of other cancer. Family history of breast cancer in maternal aunt at age 75. Took hormonal contraceptives for 15 years. Took estrogen for 6 years beginning at age 50. Took progesterone for 6 years beginning at age 50. Physical Findings: A clinical breast exam by your physician is recommended on an annual basis and results should be correlated with mammographic findings. MG 3D Screening Mammo W/Cad Bilateral CC and MLO view(s) were taken. Prior study comparison: December 08, 2018, bilateral MG 3d screening mammo w/cad. December 07, 2017, bilateral MG 3d screening mammo w/cad. There are scattered fibroglandular densities. No significant changes when compared with prior studies. ASSESSMENT: Negative, BI-RAD 1 RECOMMENDATION: Routine screening mammogram of both breasts in 1 year.
== END | disposition home or self-care (01) ==
LOC: RADMAMWWP 09:18
PROVIDERS: ATTEND Family Medicine
DX: Z12.31 Encounter for screening mammogram for malignant neoplasm of breast (principal)
CPT/HCPCS: 77063; 77067

== ENCOUNTER → 2021-02-13 | Outpatient (CLI) | payer MEDICARE ==
--- NOTE | 2021-02-15 09:54 | MM ---
Reason for exam: screening (asymptomatic). Last mammogram was performed 1 year and 1 month ago. History: Patient is postmenopausal and history of other cancer. Family history of breast cancer in maternal aunt at age 75. Took hormonal contraceptives for 15 years. Took estrogen for 6 years beginning at age 50. Took progesterone for 6 years beginning at age 50. Physical Findings: A clinical breast exam by your physician is recommended on an annual basis and results should be correlated with mammographic findings. MG 3D Screening Mammo W/Cad Bilateral CC and MLO view(s) were taken. Prior study comparison: January 03, 2020, bilateral MG 3d screening mammo w/cad. December 08, 2018, bilateral MG 3d screening mammo w/cad. There are scattered fibroglandular densities. Stable benign calcifications. There is no discrete abnormality. No significant changes when compared with prior studies. ASSESSMENT: Benign, BI-RAD 2 RECOMMENDATION: Routine screening mammogram of both breasts in 1 year.
== END | disposition home or self-care (01) ==
LOC: RADMAMWWP 10:05
PROVIDERS: ATTEND Family Medicine
DX: Z12.31 Encounter for screening mammogram for malignant neoplasm of breast (principal); Z78.0 Asymptomatic menopausal state; Z80.3 Family history of malignant neoplasm of breast
CPT/HCPCS: 77063; 77067

== ENCOUNTER → 2021-03-13 | Outpatient (CLI) | payer MEDICARE ==
--- NOTE | 2021-03-13 17:17 | MR ---
EXAMINATION TYPE: MR tspine/lspine wo con DATE OF EXAM: 03/13/2021 COMPARISON: Plain film same day HISTORY: Low back and thoracic spine pain TECHNIQUE: Multiplanar, multisequence imaging of the prosthetic and lumbar spine is performed without IV contrast. FINDINGS: Thoracic spine: There is multilevel spondylosis. There is a marked S-shaped thoracic lumbar scoliosis . There is no significant foraminal encroachment or spinal stenosis. Thoracic cord signal is normal. Endplate discogenic marrow signal changes are present at multiple levels. There is multilevel facet a rthropathy especially at the lower thoracic spine. Thoracic vertebral bodies show preserved height. D isc spaces are remarkable for some loss of height and signal compatible disc desiccation greatest in the mid thoracic level. T9-T10 shows a posterior central disc herniation possibly contacting the anterior cervical cord. No o ther sizable disc herniation. IMPRESSION: Marked scoliosis, degenerative disc disease, multilevel facet arthropathy Lumbar spine MRI: Patient's scoliotic curvature is again noted. There is multilevel spondylosis with some endplate discogenic marrow signal change, minimal anterolisthesis grade 1 L5-S1, loss of disc he ight signal is present especially at L4-5, L5-S1. No significant spinal stenosis. L5-S1: There is facet arthropathy, hypertrophic change. The listhesis contributes with circumferentia l disc bulge to cause foraminal encroachment greater on the right. Posterior disc bulge causes mild a nterior mass effect on the thecal sac. L4-5: Posterior disc bulge causes mild anterior mass effect on the thecal sac. Facet arthropathy with hypertrophic change of the ligamentum flavum causes some minimal posterior lateral mass effect on th e thecal sac. Circumferential extension endplate disc complex causes foraminal encroachment greater o n the right which may be contributed by the spinal curvature. There is some encroachment on the later al recess by the facet hypertrophy on the right. L3-4: Hypertrophic changes of the facets causes posterior lateral mass effect on the thecal sac, ther e is circumferential posterior disc bulge causing mild anterior mass effect on the thecal sac, latera l extension of disc bulge causes some mild encroachment greater on the right foramen on the left. L2-3: Facet arthropathy changes present causing some posterior lateral mass effect on the thecal sac. Some left-sided foraminal encroachment is suspected due to lateral extension endplate disc complex. Posterior disc bulge causes mild anterior mass effect on the thecal sac. L1-2: Posterior disc bulge causes mild anterior mass effect on the thecal sac. There may be some left -sided foraminal encroachment. There is facet arthropathy change. Her graft T12-L1: Facet arthropathy is air in the left causing some posterior lateral mass effect on the thecal sac. Suspect some left-s ided foraminal encroachment. IMPRESSION: Degenerative disc disease, facet arthropathy, foraminal encroachment, scoliosis.
--- NOTE | 2021-03-14 07:34 | XR ---
EXAMINATION TYPE: XR scoliosis survey DATE OF EXAM: 03/13/2021 COMPARISON: NONE HISTORY: Chronic back pain TECHNIQUE: 4 views submitted FINDINGS: There is a rotatory scoliosis of the thoracolumbar spine multilevel degenerative disc disea se. Scoliosis measures approximately 53 degrees IMPRESSION: 1. Rotatory scoliosis measuring approximately 53 degrees
== END | disposition home or self-care (01) ==
LOC: RADMRIMAIN 14:38
PROVIDERS: ATTEND Orthopaedic Surgery
DX: M51.34 Other intervertebral disc degeneration, thoracic region (principal); M47.814 Spondylosis without myelopathy or radiculopathy, thoracic region; M41.84 Other forms of scoliosis, thoracic region; M51.36 Other intervertebral disc degeneration, lumbar region; M47.816 Spondylosis without myelopathy or radiculopathy, lumbar region; M99.73 Connective tissue and disc stenosis of intervertebral foramina of lumbar region; M41.86 Other forms of scoliosis, lumbar region
CPT/HCPCS: 72082; 72146; 72148

== ENCOUNTER → 2021-05-22 | Outpatient (CLI) | payer MEDICARE ==
[2021-05-22 11:13] VITALS: BP 143/85; PULSE 71; RESP 18; TEMP 98.2
--- NOTE | 2021-05-22 11:43 | P.PAINCN ---
History of Present Illness - Reason for Consult Consult date: 05/22/21 - History of Present Illness This is 70 years old female with a chronic history of severe low back pain started more than 40 years ago, and denies any initiating event and she reported that the intensity of the pain increased over the last few years, and is constant and increases with any activity with radiation to the right lower extremity, seated to some numbness and tingling sensation, he denies any motor or sensory deficit she denies any fever, no change in the bowel movements or urination Past Medical History Past Medical History: Osteoarthritis (OA), Sleep Apnea/CPAP/BIPAP, Vascular Disorder Additional Past Medical History / Comment(s): SCOLIOSIS. "vein problem and had injections in legs" History of Any Multi-Drug Resistant Organisms: None Reported Past Surgical History: Section, Cholecystectomy, Joint Replacement, Orthopedic Surgery Additional Past Surgical History / Comment(s): HEIDY KNEE ARTHROSCOPIES. HEIDY CARPAL TUNNEL. LEFT SHOULDER X3. Gall bladder removed Past Anesthesia/Blood Transfusion Reactions: No Reported Reaction Past Psychological History: No Psychological Hx Reported Smoking Status: Never smoker Past Alcohol Use History: None Reported Past Drug Use History: None Reported - Past Family History Father Family Medical History: Diabetes Mellitus Sister(s) Family Medical History: Diabetes Mellitus, Osteoarthritis (OA) Medications and Allergies Home Medications Medication Instructions Recorded Confirmed Type Fish Oil/Dha/Epa [Fish Oil 1,200 1,210 mg PO BID 08/12/18 05/22/21 History mg Fish Oil] Multivitamins, Thera [Multivitamin 1 tab PO DAILY 08/12/18 05/22/21 History (formulary)] Cranberry Fruit Extract [Cranberry] 500 mg PO DAILY 01/03/19 05/22/21 History L.acidoph,Paracasei, B.lactis 1 cap PO DAILY 01/03/19 05/22/21 History [Probiotic] Turmeric Root Extract [Turmeric] 400 mg PO BID 01/03/19 05/22/21 History clonazePAM [KlonoPIN] 1 mg PO HS 01/03/19 05/22/21 History Aspirin [Adult Low Dose Aspirin EC] 81 mg PO DAILY 05/22/21 05/22/21 History Ubidecarenone [Co Q-10] 200 mg PO BID 05/22/21 05/22/21 History Allergies Allergy/AdvReac Type Severity Reaction Status Date / Time No Known Allergies Allergy Verified 05/22/21 11:01 Physical Exam Vitals: Vital Signs Temp Pulse Resp BP Pulse Ox 05/22/21 10:52 98.2 F 71 18 143/85 98 Intake and Output 05/21/21 05/22/21 05/22/21 22:59 06:59 14:59 Other: Weight 64.41 kg Physical Examinations : -Constitutiona : Cooperative , not in acute distress . -HEENT : nech : supple , no Lymphadenopathy , normal thyroid size . : eyes : no ptosis , no icterus, no photophobia . - neurologic : Cranial nerve II to XII intact , no focal neurological deffecit . -psychatric : alert , oriented X 3 , appropriate affect , intact judgment and insight . -Lymphatic : no Lymphadenopathy . - musculoskeltal : Lumber spine moter stegnth lower extremities ,thigh and legs 5/5 Right side , 5/5 Left side deep tendon reflexes : normal Knee Jerk , normal ankle Jerk lumber facet Loading Test =positive Right , positive Left Range of motion of the lumbar spine Flexion 30 degrees, extension 10 degrees strait leg raising test = negative bilaterally Fabere test= negative bilaterally Results Comments: MRI of the lumbar spine multilevel lumbar degenerative disc disease multilevel lumbar facet arthropathy, foraminal stenosis Assessment and Plan Plan: Assessment and plan=1-lumbar radiculopathy. 2-lumbar degenerative disc disease. 3-Lumbar spondylosis with lumbar facet arthropathy. 4-Umber foramina stenosis. Patient will be scheduled to have right-sided transforaminal epidural steroid injections at L4-5 x1 , after that we will do lumbar epidural steroid injection at L3 4 , and later on patient will follow up with Dr. Sawyer for evaluation Time with Patient: Greater than 30 PQRS Measure Charge Sheet Measure #130: Documentation of Current Meds in Medical Chart: Patient's medications documented in chart Measure #226: Tobacco Use: Screen & Cessation Intervention: Pt not a tobacco user Measure #111: Pneumonia Vaccination: Pneumococcal vaccine administered or previously received Measure #47: Advance Care Plan: Advance care planning discussed & documented, pt chose/unable to give Measure #412: Opioid Treatment Agreement: No documentation of signed opioid treatment agreement Measure #408: Opioid Therapy Follow-up Evaluation: Patient had NO f/u eval minimum every 3 months during opioid therapy Measure #317: Preventitive Care & Scrn High Bld Press & F/U: Pre-hypertensive or hypertensive BP documented, pt will f/u with PCP Measure #128: Body Mass Index (BMI) Screening & Follow-up: BMI documented within normal parameters Measure #131: Pain Assessment & Follow-up: Pain positive & plan documented, Follow-up scheduled Measure #431: Unhealthy Alcohol Use Preventative Care & Scrn: Patient not id entified as an unhealthy alcohol user PQRS Narrative: Smoking Status Never smoker Blood Pressure 143/85 Pain Intensity [Lower Back] 3 Scale Used Numeric (1 - 10) Hx Alcohol Use (MH) No Home Medications: Ambulatory Orders Fish Oil/Dha/Epa [Fish Oil 1,200 mg Fish Oil] 1,210 mg PO BID 08/12/18 Multivitamins, Thera [Multivitamin (formulary)] 1 tab PO DAILY 08/12/18 Cranberry Fruit Extract [Cranberry] 500 mg PO DAILY 01/03/19 L.acidoph,Paracasei, B.lactis [Probiotic] 1 cap PO DAILY 01/03/19 Turmeric Root Extract [Turmeric] 400 mg PO BID 01/03/19 clonazePAM [KlonoPIN] 1 mg PO HS 01/03/19 Aspirin [Adult Low Dose Aspirin EC] 81 mg PO DAILY 05/22/21 Ubidecarenone [Co Q-10] 200 mg PO BID 05/22/21
== END ==
LOC: PNWHC3 10:35
PROVIDERS: ATTEND Specialist
DX: M51.16 Intervertebral disc disorders with radiculopathy, lumbar region (principal); M48.061 Spinal stenosis, lumbar region without neurogenic claudication; M47.26 Other spondylosis with radiculopathy, lumbar region; M19.90 Unspecified osteoarthritis, unspecified site
CPT/HCPCS: 99211

== ENCOUNTER 2021-06-18 08:31 | Day surgery (SDC) | payer MEDICARE ==
[2021-06-14 16:14] VITALS: BMI 24.3
[~2021-06-18 08:31] MED LIST changes: -ACETAMINOPHEN TAB 500 MG TAB PO ONE; +LACTATED RINGERS 1,000 ML IV SCH; -LIDOCAINE 1% 20 ML VIAL (10MG/ML) FOR IV START INTRADERMA PRN; -MELOXICAM 7.5 MG TAB PO ONE; -MIDAZOLAM (PF) 2 MG/2 ML VIAL IV PRN; -TRANEXAMIC ACID 1,000 MG in SODIUM CHLORIDE 0.9% 100 ML IVPB ONE; -ceFAZolin IN SWFI 2 GM/20 ML SYRINGE IVP ONE; -fentaNYL (PF) 50 MCG/ML 2 ML AMP IV PRN; -fentaNYL (PF) 50 MCG/ML 2 ML AMP IVP PRN
[2021-06-18 08:51] VITALS: RESP 16; TEMP 98.1
[2021-06-18] MEDS ORDERED: LIDOCAINE 1% (10MG/ML) FOR IV START INTRADERMA ONE (08:59)
[2021-06-18] MEDS ORDERED: MIDAZOLAM 2 MG/2 ML VIAL ONE (09:04)
[2021-06-18] MEDS ORDERED: DEXAMETHASONE SOD PHOSPHATE 10 MG/ML 1 ML VIAL ONE (09:04)
[2021-06-18] MEDS ORDERED: IOPAMIDOL M200 10 ML VIAL ONE (09:04)
[2021-06-18] MEDS ORDERED: fentaNYL (PF) 50 MCG/ML 2 ML AMP ONE (09:04)
--- NOTE | 2021-06-18 09:20 | P.PCN ---
Date of Procedure: 06/18/21 Surgeon: Emeterio Patel Pathology: none sent Condition: stable Disposition: PACU Description of Procedure: PREOPERATIVE DIAGNOSIS: Lumbar radiculopathy POSTOPERATIVE DIAGNOSIS: Lumbar radiculopathy PROCEDURE 1. Right transforaminal epidural steroid injection under fluoroscopic guidance at L4-5 2. Lumbar epidurogram. SURGEON: Emeterio Patel MD ANESTHESIA: Local with 1% lidocaine; IV sedation with Versed and fentanyl. EBL: Minimal PROCEDURE INDICATION: The patient with low back pain and radiculopathy symptoms unresponsive to conservative treatment. PROCEDURE DESCRIPTION / TECHNIQUE: The patient was seen and identified in the preoperative area. Risks, benefits, complications, and alternatives were discussed with the patient. The patient agreed to proceed with the procedure and signed the consent. IV was started, and vital signs were stable. Patient was taken to the OR and time out was completed. The patient was placed in the prone position on procedure table and a pillow was placed under the abdomen to reduce lumbar lordosis. The lumbosacral area was prepped and draped in the usual sterile fashion. Critical pause was taken. Vital signs were closely monitored during the procedure. Conscious sedation was used during the procedure to decrease patients anxiety. The vertebral body of the lumbar vertebra L4 was squared off by tilting the C-arm cephalad then the C-arm did not need to be tilted obliquely because of the patient's severe scoliosis of at least 20. The target point was at the 6 o'clock position of the pedicle of L4 then skin and deeper tissues were localized with 1% lidocaine. Subsequently, a 22-gauge 3.5-inch spinal needle was advanced under a tunneled view fluoroscopic guidance just underneath the chin of the Mariano dog at the . Under lateral fluoroscopy, the needle was then advanced to the middle of the upper one third of the foramen between(L4-5 ). After negative aspiration of CSF and blood and with no paresthesias, 1 mL of omnipaque contrast dye was injected excellent epidurogram and outlining of the L4 nerve root was identified. Subsequently, 2 mL of block solution containing 10 mg of Decadron and 1 mL of Lidocaine 1% PF was injected. Needle was removed intact . At the end of the procedure, skin was cleansed, and bandages were applied. COMPLICATIONS: None COMMENTS: DISPOSITION / PLANS: The patient was placed in a supine position and transferred to the recovery area in a stable condition for observation. There was no evidence of lower extremity motor or sensory deficit after the procedure. Patient was discharged from the recovery room after meeting discharge criteria. Home discharge instructions were given to the patient by the staff.
[2021-06-18 09:46] VITALS: BP 128/77; PULSE 67
[2021-06-18] MEDS ORDERED: IV FLUID CONTINUATION 1,000 ML IV ONE (09:46)
--- NOTE | 2021-06-18 11:05 | FL ---
EXAMINATION TYPE: FL guided pain mgmt statistic DATE OF EXAM: 06/18/2021 CLINICAL HISTORY: Low back pain. TECHNIQUE: Fluoroscopy. COMPARISON: None. FINDINGS: Fluoroscopic guidance was provided during pain relief procedure performed by Dr. Patel . A total of 35 seconds of fluoroscopic time was utilized during the procedure and 5 spot images are acquired. Images acquired shows needle localization at several levels in the spine with underlying s coliosis and spinous process hypertrophy noted. IMPRESSION: As Above.
== END 2021-06-18 10:09 | disposition home or self-care (01) ==
LOC: ORPAIN 08:31
PROVIDERS: ATTEND Anesthesiology
DX: M54.16 Radiculopathy, lumbar region (principal)
CPT/HCPCS: 64483; 64484; J2250; J1100; J2001; J3010; Q9966; 99152

== ENCOUNTER 2021-07-25 08:11 | Day surgery (SDC) | payer MEDICARE ==
[2021-07-18 12:54] VITALS: BMI 24.5
[2021-07-25 08:34] VITALS: TEMP 96.8
[2021-07-25] MEDS ORDERED: LIDOCAINE 1% (10MG/ML) FOR IV START INTRADERMA ONE (08:44)
[2021-07-25] MEDS ORDERED: IOPAMIDOL M200 10 ML VIAL ONE (09:06)
[2021-07-25] MEDS ORDERED: MIDAZOLAM 2 MG/2 ML VIAL ONE (09:06)
[2021-07-25] MEDS ORDERED: methylPREDNISolone ACETATE 40 MG/ML 1 ML VIAL ONE (09:06)
[2021-07-25] MEDS ORDERED: fentaNYL (PF) 50 MCG/ML 2 ML AMP ONE (09:06)
--- NOTE | 2021-07-25 09:21 | P.PCN ---
Date of Procedure: 07/25/21 Procedure(s) Performed: PREOPERATIVE DIAGNOSIS: 1- Lumbar Degenerative Disc Diseases 2-Lumbar spondylosis with Facet arthropathy without myelopathy. 3-lumbar spinal stenosis POSTOPERATIVE DIAGNOSIS: Same as preop diagnosis. PROCEDURE 1. Lumbar epidural steroid injection under fluoroscopic guidance at the L3-4 level. (Fluoroscopy imaging was available in radiology department) 2. Lumbar epidurogram. ANESTHESIA: Local with 1% lidocaine 3 ml and , moderate sedation with intravenous Versed 1 mg ,and fentanyle 50 Mcg EBL: Minimal PROCEDURE INDICATION: The patient with low back pain and radiculitis symptoms unresponsive to conservative treatment. Fluoroscopy was used to optimize visualization of the needle placement and to maximize safety. PROCEDURE DESCRIPTION / TECHNIQUE: The patient was seen and identified in the preoperative area. Risks, benefits, complications including but not limited to infections ,bleeding ,allergic reaction to the medications ,nerve damage and not complete pain releife , and alternatives were discussed with the patient. The patient agreed to proceed with the procedure and signed the consent. IV was started, and vital signs were stable. Patient was taken to the OR and time out was completed. The patient was placed in the prone position on procedure table and a pillow was placed under the abdomen to reduce lumbar lordosis. The lumbosacral area was prepped and draped in the usual sterile fashion.ere closely monitored during the procedure. Conscious sedation was used during the procedure to decrease patients anxiety. Vital signs was monitered during the entire procedure. Using anterior-posterior fluoroscopy, the L3-4 interlaminar space was identified and the skin over this site was marked and then infiltrated with 1% lidocaine subcutaneously. Subsequently, a 20-gauge Tuohy epidural needle was inserted and advanced toward the epidural space using the ``Loss of resistance technique and guided by AP and lateral fluoroscopy. The correct needle position in the epidural space was verified with the injection of 2 mL of the water soluble contrast dye Isovue 200 contrast and observing an excellent epidurogram with the epidural spread of the dye, after negative aspiration for blood and CSF and in the absence of paresthesias. Again after negative aspiration, a 6 ml mixture containing 40 mg of Depo-medrol , and 2 ml of preservative free Normal Saline, and 2 ml of preservative free lidocaine 1% solution was injected and a washout of epidurogram was seen. Needle was withdrawn intact, skin was cleansed, and bandages were applied. COMPLICATIONS: None DISPOSITION / PLANS: The patient was placed in a supine position and transferred to the recovery area in a stable condition for observation. There was no evidence of lower extremity motor or sensory deficit after the procedure. Patient was discharged from the recovery room after meeting discharge criteria. Home discharge instructions were given to the patient by the staff. The patient was reexamined prior to discharge. The patient will schedule a follow up with Dr Sawyer.
[2021-07-25] MEDS ORDERED: IV FLUID CONTINUATION 1,000 ML IV ONE (09:24)
[2021-07-25 09:52] VITALS: BP 132/78; PULSE 71; RESP 17
--- NOTE | 2021-07-25 11:17 | FL ---
EXAMINATION TYPE: FL guided pain mgmt statistic DATE OF EXAM: 07/25/2021 CLINICAL HISTORY: Low back pain. TECHNIQUE: Fluoroscopy. COMPARISON: None. FINDINGS: Fluoroscopic guidance was provided during pain relief procedure performed by Dr. Alatorre . A total of 7 seconds of fluoroscopic time was utilized during the procedure and 1 spot images are acquired. Single image acquired shows needle localization at L4 level. IMPRESSION: As Above.
== END 2021-07-25 10:03 | disposition home or self-care (01) ==
LOC: ORPAIN 08:11
PROVIDERS: ATTEND Specialist
DX: M47.816 Spondylosis without myelopathy or radiculopathy, lumbar region (principal); M48.061 Spinal stenosis, lumbar region without neurogenic claudication; M51.36 Other intervertebral disc degeneration, lumbar region
CPT/HCPCS: 62323; J2250; J1030; J3010; Q9966

== ENCOUNTER → 2021-11-20 | Outpatient (CLI) | payer MEDICARE ==
[~2021-11-20] MED LIST changes: -LACTATED RINGERS 1,000 ML IV SCH; +REGADENOSON 0.4 MG/5 ML SYRINGE IV PRN
--- NOTE | 2021-11-20 11:05 | P.STRESS ---
- Stress Test Note Stress Test Results/Findings: Exam Performed: NM stress lexiscan cardiolite Exam Date: 11/20/21 Reason for Exam: MADI Height: 5 ft 4 in Weight: 64.41 kg Protocol: LEXISCAN CARDIOLITE Stage: NA Duration of Exercise: NA Resting Heart Rate: 78 Resting Blood Pressure: 148/75 Maximum Achieved Heart Rate: 99 Maximum Achieved Blood Pressure: 154/79 85% PMHR: 126 100% PMHR: 148 METS: NA Technologist Comment: Stress Test Results/Findings: At baseline EKG showed normal sinus rhythm, normal axis, rare PVCs, no significant ST or T wave abnormalities other than T wave inversion in lead 3. Patient recieved IV infusion of Lexiscan 0.4mg and at peak infusion EKG showed no significant change from baseline. Conclusions: 1. Normal EKG response to Lexiscan infusion 2. Nuclear imaging to be reported separately.
--- NOTE | 2021-11-20 14:09 | NM ---
EXAMINATION TYPE: NM stress lexiscan cardiolite DATE OF EXAM: 11/20/2021 COMPARISON: NONE HISTORY: 71-year-old female R06.02, shortness of breath. TECHNIQUE: After the intravenous administration of 9.1 mCi Tc 99m Sestamibi - Cardiolite resting SPE CT images acquired 45 minutes post injection. The patient received 0.4mg Lexiscan, 24.5 mCi Tc 99m Sestamibi - Stress images obtained [address] injection FINDINGS: Review of stress and rest SPECT images demonstrates small area of reversibility along the apical infe rior wall. Gated analysis shows normal wall motion with an estimated left ventricular ejection fracti on of 63 %. PVCs are recorded by the technologist. TID is calculated at 0.88, within normal limits. IMPRESSION: Findings suggest a small area of inducible ischemia along the apical inferior wall. Further evaluatio n as clinically indicated.
== END | disposition home or self-care (01) ==
LOC: RADNMMAIN 08:11
PROVIDERS: ATTEND Family Medicine
DX: R06.02 Shortness of breath (principal)
CPT/HCPCS: 93017; 78452; A9500; J2785

== ENCOUNTER → 2021-11-21 | Outpatient (CLI) | payer MEDICARE ==
[2021-11-21 15:19] LABS: HCT 39.6 % (34.0-46.0); MCH 32.6 pg (25.0-35.0); MCHC 32.9 g/dL (31.0-37.0); Mean Platelet Volume 7.5; Platelet Count 299 k/uL (150-450); RBC 4.01 m/uL (3.80-5.40); RDW 12.9 % (11.5-15.5); WBC 9.3 k/uL (3.8-10.6)
== END | disposition home or self-care (01) ==
LOC: LABPAT 14:19
PROVIDERS: ATTEND Internal Medicine Cardiovascular Disease
DX: Z01.812 Encounter for preprocedural laboratory examination (principal); R94.39 Abnormal result of other cardiovascular function study
CPT/HCPCS: 36415; 80051; 82565; 84520; 85027

== ENCOUNTER 2021-12-03 09:19 | Day surgery (SDC) | payer MEDICARE ==
[2021-11-22 12:27] VITALS: BMI 24.3
[~2021-12-03 09:19] MED LIST changes: +ALPRAZolam 0.25 MG TAB PO PRN; +ALPRAZolam 0.5 MG TAB PO PRN; +ASPIRIN 325 MG TAB PO STA; +ATORVASTATIN 80 MG TAB PO STA; +NITROGLYCERIN SL TABS 0.4 MG TAB SUBLINGUAL PRN; -REGADENOSON 0.4 MG/5 ML SYRINGE IV PRN; +SODIUM CHLORIDE 0.9% 1,000 ML in EMPTY BAG 1 BAG IV SCH
[2021-12-03 09:48] VITALS: TEMP 98.1
[2021-12-03] MEDS ORDERED: VERAPAMIL 2.5 MG/ML 2 ML AMP ONE (10:17)
[2021-12-03] MEDS ORDERED: LIDOCAINE 1% INJ 10MG/ML (20 ML MDV) ONE (10:17)
[2021-12-03] MEDS ORDERED: fentaNYL (PF) 50 MCG/ML 2 ML AMP ONE (10:18)
[2021-12-03] MEDS ORDERED: HEPARIN SODIUM 1,000 UN/ML (10ML VL) ONE (10:19)
[2021-12-03] MEDS: fentaNYL (PF) 50 MCG/ML 2 ML AMP IVP ONE ×2 (10:37→10:48)
[2021-12-03] MEDS: MIDAZOLAM 2 MG/2 ML VIAL IVP ONE ×2 (10:37→10:51)
[2021-12-03] MEDS: LIDOCAINE 1% INJ 10MG/ML (20 ML MDV) SQ ONE ×2 (10:41→10:52)
[2021-12-03] MEDS ORDERED: IOPAMIDOL-370 125ML BTL INJ ONE (11:04)
--- NOTE | 2021-12-03 11:39 | LTR ---
December 03, 2021 To: Dr. Kenyetta Agee Re: Carine Melendez (48) Dear Kenyetta, I performed cardiac catheterization on Carine Melendez. A detailed catheterization note is enclosed for your records. In brief, the cardiac catheterization revealed mild nonobstructive disease involving LAD and the stress test is a false positive stress test. Thank you for giving me the privilege of participating in the care of this pleasant lady. Sincerely, Robbie Ramos M.D. ANNA / SANDRA: [id number] /
--- NOTE | 2021-12-03 11:39 | CC ---
CARDIAC CATHETERIZATION REPORT INDICATION: This is a 71-year-old lady with a history of recent COVID infection who presented with symptoms of increasing fatigue and shortness of breath for the last several months. She had a stress test that showed ischemia involving the apical inferior wall, due to which she was advised to undergo cardiac catheterization. Patient has been explained risks, benefits and alternatives, understood and accepted. PROCEDURE NOTE: After obtaining informed consent, left heart catheterization and coronary angiogram were performed via the right femoral artery using standard Suleman catheters. Patient tolerated the procedure well without any obvious immediate complications. A femoral angiogram was performed and the site of entry is below the bifurcation; hence we opted for manual hemostasis. Patient received moderate conscious sedation. Total sedation time was 26 minutes. We initially attempted right radial catheterization but were unsuccessful with arterial access; hence the procedure was done femorally. FINDINGS: HEMODYNAMICS: Left ventricular end-diastolic pressure is 12 mm. There is no significant gradient across the aortic valve. LEFT VENTRICULOGRAM: Left ventriculogram was not performed. ANGIOGRAPHIC DATA: Left main coronary artery. Left main coronary artery is a normal-sized vessel and is free of stenosis. It divides into left anterior descending coronary artery and circumflex coronary artery. Mid LAD at the origin of a diagonal branch shows a mild atherosclerotic plaque. Circumflex coronary artery is a nondominant vessel and is free of significant disease. Right coronary artery is a large dominant vessel and is free of significant disease. CONCLUSIONS: 1. 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 2. Right-dominant circulation. 3. Normal left ventricular end-diastolic pressures. PLAN: I reviewed angiographic data with the patient and told her that her stress test is a false positive stress test and her symptoms are probably noncardiac in origin. MMODL / IJN: [id number] /
[2021-12-03] MEDS ORDERED: RX INFO: IV CONTRAST WAS GIVEN 1 EACH MISC MISCELLANE PRN (12:06)
[2021-12-03] MEDS ORDERED: SODIUM CHLORIDE 0.9% 1,000 ML IV SCH (12:15)
[2021-12-03 12:52] VITALS: RESP 16
[2021-12-03 17:52] VITALS: BP 144/70; PULSE 64
== END 2021-12-03 18:17 | disposition home or self-care (01) ==
LOC: CATHCVL 09:19
PROVIDERS: ATTEND Internal Medicine Cardiovascular Disease
DX: I25.10 Atherosclerotic heart disease of native coronary artery without angina pectoris (principal); E78.5 Hyperlipidemia, unspecified; Z20.822 Contact with and (suspected) exposure to COVID-19; R94.39 Abnormal result of other cardiovascular function study; R94.31 Abnormal electrocardiogram [ECG] [EKG]; Z79.899 Other long term (current) drug therapy
CPT/HCPCS: 93458; 87635; C1769 ×2; C1894 ×2; J2250; J2001; J3010; Q9967

== ENCOUNTER → 2021-12-17 | Outpatient (CLI) | payer MEDICARE | END | disposition home or self-care (01) | LOC: LABPAT 10:35 | PROVIDERS: ATTEND Internal Medicine Cardiovascular Disease | DX: U07.1 COVID-19 (principal) ==

== ENCOUNTER 2021-12-20 09:29 | Day surgery (SDC) | payer MEDICARE ==
[2021-12-17 11:42] VITALS: BMI 24.3
[2021-12-20] MEDS ORDERED: SODIUM CHLORIDE 0.9% 500 ML 500 ML IV ONE (09:53)
[2021-12-20 10:05] VITALS: RESP 16; TEMP 97.5
[2021-12-20] MEDS ORDERED: fentaNYL (PF) 50 MCG/ML 2 ML AMP ONE ×2 (10:58→11:10)
[2021-12-20] MEDS ORDERED: BENZOCAINE SPRAY 1 CAN MUCOUS MEM ONE (11:10)
[2021-12-20] MEDS ORDERED: MIDAZOLAM 2 MG/2 ML VIAL IV ONE (11:13)
[2021-12-20] MEDS ORDERED: fentaNYL (PF) 50 MCG/ML 2 ML AMP IV ONE (11:13)
--- NOTE | 2021-12-20 12:04 | P.TEE ---
Date of Procedure: 12/20/21 Transesophageal Echocardiogram (BAUDILIO) Progress Note: Indication: Mitral regurgitation Procedure note: After obtaining informed consent transesophageal echocardiogram was performed in left lateral position using an Omniplane probe local and IV sedation were obtained with 1 mg of Versed and 25 g of fentanyl patient tolerated the procedure well without any observed it complications. Patient received moderate conscious sedation total sedation time was 8 minutes 2-D color Doppler and spectral analysis has been performed Findings: Mitral valve: There is prolapse of the posterior mitral leaflet with severe mitral regurgitation it is predominantly central with an element of eccentric anterior flow There is reversal of flow into the pulmonary vein Tricuspid valve: Shows mild tricuspid regurgitation Aortic valve: Is a 3 leaflet valve there is no evidence of aortic stenosis or regurgitation Left atrium appears enlarged Right atrium and right ventricle seen within normal limits Interatrial septum: There is no evidence of [id number] shunt by color flow Doppler R [id number] shunt by a strict insulin contrast study Left ventricle has normal size and systolic function Aortic root measures within normal limits Conclusions: Severe mitral regurgitation secondary to prolapse of the posterior mitral leaflet Normal LV function Left atrial enlargement Plan I will refer the patient to cardiothoracic surgeon for evaluation for mitral valve repair
[2021-12-20 17:01] VITALS: BP 145/65; PULSE 65
== END 2021-12-20 12:24 | disposition home or self-care (01) ==
LOC: CATHCVL 09:29
PROVIDERS: ATTEND Internal Medicine Cardiovascular Disease
DX: I34.0 Nonrheumatic mitral (valve) insufficiency (principal); I25.10 Atherosclerotic heart disease of native coronary artery without angina pectoris; E78.5 Hyperlipidemia, unspecified; Z90.49 Acquired absence of other specified parts of digestive tract; Z83.3 Family history of diabetes mellitus; Z83.6 Family history of other diseases of the respiratory system; Z79.899 Other long term (current) drug therapy
CPT/HCPCS: 93312; 93320; 93325; J2250; J3010

== ENCOUNTER → 2022-01-02 | Outpatient (CLI) | payer MEDICARE ==
[2022-01-02 10:04] LABS: INR 1.1 (<1.2); Partial Thromboplastin Time 23.4 sec (22.0-30.0); Prothrombin Time 11.7 sec (9.0-12.0)
[2022-01-02 15:35] LABS: HCT 42.4 % (37.2-46.3); HGB 13.6 g/dL (12.0-15.0); MCH 31.3 pg (27.0-32.0); MCHC 32.1 g/dL (32.0-37.0); MCV 97.7 fL (80.0-97.0); Mean Platelet Volume 10.5 fL (9.5-12.2); NRBC Per 100 WBC 0 /100 WBCS (0.0-0.0); Platelet Count 293 X 10*3/uL (140-440); RBC 4.34 X 10*6/uL (4.10-5.20); RDW 12.8 % (11.5-14.5); WBC 5.95 X 10*3/uL (4.50-10.00)
[2022-01-02 16:41] LABS: ALT 18 U/L (8-44); AST 21 U/L (13-35); African American GFR (CKD) 94.6 (60.0-200.0); Albumin 4.2 g/dL (3.8-4.9); Albumin/Globulin Ratio 1.52 (1.60-3.17); Alkaline Phosphatase 90 U/L (41-126); BUN/Creat Ratio 26.39 Ratio (12.00-20.00); Blood Urea Nitrogen 19.4 mg/dL (9.0-27.0); Calcium 9.5 mg/dL (8.7-10.3); Carbon Dioxide 25.1 mmol/L (20.0-27.5); Chloride 101 mmol/L (96-109); Chol/HDL Ratio 2.61 Ratio; Globulin 2.7 g/dL (1.6-3.3); Glucose 81 mg/dL (70-110); LDL Cholesterol,Calculated 114.3 mg/dL (0.0-131.0); Magnesium 2.5 mg/dL (1.5-2.4); Non-African American GFR(CKD) 81.6 (60.0-200.0); Potassium 4.4 mmol/L (3.5-5.5); Sodium 138 mmol/L (135-145); Total Protein 6.9 g/dL (6.2-8.2); VLDL Calculation 11.52 mg/dL (5.00-40.00)
[2022-01-02 16:43] LABS: Hepatitis A Antibody IgM Nonreactive (Nonreactive); Hepatitis B Core IgM Nonreactive (Nonreactive)
[2022-01-02 16:44] LABS: Hepatitis B Surface Antigen Nonreactive (Nonreactive); Hepatitis C IgG Antibody Nonreactive (Nonreactive)
[2022-01-02 17:09] LABS: Appearance,Urine Clear (Clear); Bilirubin,Urine Negative (Negative); Blood,Urine Negative (Negative); Color,Urine Yellow (Yellow); Ketones,Urine Negative (Negative); Leukocyte Esterase,Urine Negative (Negative); Nitrite,Urine Negative (Negative); PH, Urine 6.5 (5.0-8.0); Protein,Urine Negative (Negative); Specific Gravity,Urine 1.007 (1.001-1.030); Urobilinogen,Urine 0.2 (0.2,1.0)
== END | disposition home or self-care (01) ==
LOC: LABPAT 08:51
PROVIDERS: ATTEND Thoracic Surgery (Cardiothoracic Vascular Surgery)
DX: I35.0 Nonrheumatic aortic (valve) stenosis (principal)
CPT/HCPCS: 36415; 80053; 80061; 80074; 81003; 83036; 83735; 84443; 85027; 85610; 85730; 87070; 87086; 93005; 94150

== ENCOUNTER → 2022-01-02 | Outpatient (CLI) | payer MEDICARE ==
--- NOTE | 2022-01-02 12:19 | XR ---
EXAMINATION TYPE: XR chest 2V DATE OF EXAM: 01/02/2022 COMPARISON: None HISTORY: 71-year-old female Z01.818, presurgical evaluation for open heart. TECHNIQUE: Frontal and lateral views FINDINGS: Levoconvex scoliosis thoracic spine. Heart normal size. Mild prostatic arch calcifications. Mild inte rstitial prominence and mild hyperinflation. Left suprahilar nodularity most suggestive of a prominen t vessel on end. Suture anchor left humeral head from prior cuff repair. No consolidation or pleural effusion. IMPRESSION: Correlative for possible underlying COPD. Leftward scoliosis. No definite acute process.
--- NOTE | 2022-01-02 12:32 | US ---
EXAMINATION TYPE: US carotid duplex BILAT DATE OF EXAM: 01/02/2022 COMPARISON: NONE CLINICAL HISTORY: 71-year-old female OPEN HEART PRE OP. Preop TECHNIQUE: Carotid duplex ultrasound examination. In direct Doppler criteria was utilized. FINDINGS: EXAM MEASUREMENTS: RIGHT: Peak Systolic Velocity (PSV) cm/sec ----- Right CCA: 61.6 ----- Right ICA: 64.5 ----- Right ECA: 80.8 ICA/CCA ratio: 1.0 RIGHT: End Diastole cm/sec ----- Right CCA: 15.4 ----- Right ICA: 23.2 ----- Right ECA: 0.0 LEFT: Peak Systolic Velocity (PSV) cm/sec ----- Left CCA: 66.0 ----- Left ICA: 70.3 ----- Left ECA: 66.8 ICA/CCA ratio: 1.1 LEFT: End Diastole cm/sec ----- Left CCA: 18.8 ----- Left ICA: 31.1 ----- Left ECA: 0.0 VERTEBRALS (direction of flow): Right Vertebral: Antegrade Left Vertebral: Antegrade Rhythm: Arrhythmia Tree Surgeon Helper notes: Plaque in mid right CCA and minimal within the bilateral carotid bulbs. No wall th ickening. No significant stenosis. No elevated velocities. IMPRESSION: 1. No hemodynamically significant internal carotid artery stenosis on either side. 2. Some possible 5 mm focal loose plaque within the mid right common carotid artery (page 8 of 49). Criteria for Assigning % of Stenosis / Diameter reduction (Estimation based on the indirect measurements of the internal carotid artery velocities (ICA PSV). 1. Normal (no stenosis)=ICA PSV < 125 cm/s: ratio < 2.0: ICA EDV<40 cm/s. 2. Less than 50% stenosis=ICA PSV < 125 cm/s: ratio < 2.0: ICA EDV<40 cm/s. 3. 50 to 69% stenosis=ICA PSV of 125 to 230 cm/s: ration 2.0 ? 4.0: ICA EDV 40-100 cm/s. 4. Greater than 70% stenosis to near occlusion= ICA PSV > 230 cm/s: ratio > 4.0: ICA EDV > 100 cm/s. 5. Near occlusion= ICA PSV velocities may be low or undetectable: variable ratio and ICA EDV. 6. Total occlusion=unable to detect flow.
== END | disposition home or self-care (01) ==
LOC: LABPAT 08:59
PROVIDERS: ATTEND Thoracic Surgery (Cardiothoracic Vascular Surgery)
DX: Z01.818 Encounter for other preprocedural examination (principal); M41.84 Other forms of scoliosis, thoracic region
CPT/HCPCS: 71046; 93880

== ENCOUNTER 2022-01-08 05:36 | Inpatient (IN) | payer MEDICARE ==
--- NOTE | 2022-01-03 09:51 | P.PN ---
Progress Note - Text Progress Note Date: 01/02/22 5 meter walk test completed without difficulty: #1 3.9 sec #2 3.82 sec #3 4.21 sec
[~2022-01-08 05:36] MED LIST changes: +ALBUMIN HUMAN 25% 50 ML IV ONE; +ALBUMIN HUMAN 5% 500 ML IVPB ONE; -ALPRAZolam 0.25 MG TAB PO PRN; -ALPRAZolam 0.5 MG TAB PO PRN; +ASPIRIN 325 MG TAB PO ONE; -ASPIRIN 325 MG TAB PO STA; +ATORVASTATIN 10 MG TAB PO ONE; -ATORVASTATIN 80 MG TAB PO STA; +CALCIUM CHLORIDE 100 MG/ML 10 ML SYRINGE IV ONE; +CARDIOPLEGIC SOLN (K+ 16 MEQ/L 1,000 ML with SODIUM BICARB (1 MEQ/ML) 20 ML, LIDOCAINE ... PERFUSION ONE; +CHLORHEXIDINE GLUCONATE 15 ML CUP MUCOUS MEM ONE; +CLEVIDIPINE BUTYRATE 25 MG in EMPTY BAG 1 BAG IV ONE; +HEPARIN SODIUM 1,000 UN/ML (10ML VL) IV ONE; +HEPARIN SODIUM,PORCINE 5,000 UNIT in SODIUM CHLORIDE 0.9% 500 ML 500 ML IV ONE; +INSULIN REGULAR 100 UNIT in SODIUM CHLORIDE 0.9% 100 ML IV ONE; +LACTATED RINGERS 1,000 ML IV ONE; +MAGNESIUM SULFATE 16.24 MEQ in EMPTY SYRINGE 1 SYR IV ONE; +MANNITOL 25% 12.5 GM/50 ML VIAL IV ONE; +METOPROLOL TARTRATE 12.5 MG TAB PO ONE; +NITROGLYCERIN SL TABS 0.4 MG TAB SUBLINGUAL ONE; -NITROGLYCERIN SL TABS 0.4 MG TAB SUBLINGUAL PRN; +NITROGLYCERIN-D5W PMX 25 MG/250 ML BTL IV ONE; +NITROGLYCERIN-D5W PMX 50 MG in DEXTROSE/WATER 1 250ML.BAG IV ONE; +NOREPINEPHRINE 4 MG in SODIUM CHLORIDE 0.9% 250 ML IV ONE; +PAPAVERINE 360 MG in SODIUM CHLORIDE 0.9% 90 ML IV ONE; +PHENYLEPHRINE 10 MG/ML VIAL IV ONE; +PHENYLEPHRINE 40 MG in SODIUM CHLORIDE 0.9% 250 ML IV ONE; +PROTAMINE SULFATE 10 MG/ML 25 ML VIAL IV ONE; +PROTAMINE SULFATE 250 MG in EMPTY BAG 1 BAG IV ONE; +SODIUM BICARB 8.4% 50 ML SYR (1 MEQ/ML) IV ONE; +SODIUM CHLORIDE 0.9% 1,000 ML IV ONE; -SODIUM CHLORIDE 0.9% 1,000 ML in EMPTY BAG 1 BAG IV SCH; +TRANEXAMIC ACID 2,000 MG in SODIUM CHLORIDE 0.9% 80 ML IV ONE; +ceFAZolin 1,000 MG in SODIUM CHLORIDE 0.9% IRRIGATIO 1,000 ML IRRIGATION ONE; +propofoL 1,000 MG/100 ML VIAL IV ONE
[2022-01-08 06:39] LABS: Glucose,Whole Blood 85 mg/dL (75-99)
[2022-01-08] MEDS ORDERED: fentaNYL (PF) 50 MCG/ML 50 ML VIAL ONE (07:40)
[2022-01-08] MEDS ORDERED: TRANEXAMIC ACID 1,000 MG/10 ML VIAL ONE (07:40)
[2022-01-08] MEDS ORDERED: ELECTROLYTE-R (PH 7.4) 1,000 ML IV.SOLN IV ONE (07:40)
[2022-01-08] MEDS ORDERED: PROPOFOL 10 MG/ML 20 ML VIAL IV ONE (07:40)
[2022-01-08] MEDS ORDERED: HEPARIN SODIUM,PORCINE 10,000 UNIT/ML 1 ML VIAL ONE (07:40)
[2022-01-08] MEDS ORDERED: VECURONIUM 10 MG VIAL IV ONE (07:40)
[2022-01-08] MEDS ORDERED: MIDAZOLAM 2 MG/2 ML VIAL ONE (07:40)
[2022-01-08] MEDS ORDERED: PROTAMINE SULFATE 10 MG/ML 25 ML VIAL IV ONE (07:40)
[2022-01-08] MEDS ORDERED: SODIUM CHLORIDE 0.9% 250 ML BAG ONE (07:40)
[2022-01-08] MEDS ORDERED: LIDOCAINE 2% SYG (PF) 100 MG/5 ML ONE (07:40)
[2022-01-08] MEDS ORDERED: MAGNESIUM SULFATE 4 MEQ/ML 10ML VIAL ONE (07:40)
[2022-01-08] MEDS ORDERED: PHENYLEPHRINE-0.9% NACL SYG 1,000 MCG/10 ML SYRINGE ONE (07:40)
[2022-01-08] MEDS ORDERED: CALCIUM CHLORIDE 100 MG/ML 10 ML SYRINGE ONE (07:40)
[2022-01-08] MEDS ORDERED: SODIUM CHLORIDE 0.9% 500 ML 500 ML with HEPARIN SODIUM,PORCINE 5,000 UNIT IV ONE ×2 (09:37)
[2022-01-08] MEDS ORDERED: ceFAZolin 1,000 MG in SODIUM CHLORIDE 0.9% 1,000 ML IRRIGATION ONE (09:37)
[2022-01-08] MEDS ORDERED: CALCIUM GLUCONATE 2 GM in SODIUM CHLORIDE 0.9% 100 ML IVPB PRN (12:14)
[2022-01-08] MEDS ORDERED: BENZOCAINE/MENTHOL LOZENG 1 EACH LOZENGE MUCOUS MEM PRN (12:14)
[2022-01-08] MEDS ORDERED: METOCLOPRAMIDE 5 MG/ML 2 ML VIAL IVP PRN (12:14)
[2022-01-08] MEDS ORDERED: DEXMEDETOMIDINE/0.9% NACL(PMX) 400 MCG in EMPTY BAG 1 BAG IV SCH (12:14)
[2022-01-08] MEDS ORDERED: Magnesium Replacement Protocol 1 EACH MISC MISCELLANE PRN (12:14)
[2022-01-08] MEDS ORDERED: Phosphorus Replacement Protoco 1 EACH MISC MISCELLANE PRN (12:14)
[2022-01-08] MEDS ORDERED: DEXTROSE 5% IN WATER 100 ML with AMIODARONE 150 MG IV PRN (12:14)
[2022-01-08] MEDS ORDERED: Potassium Replacement Protocol 1 EACH MISC MISCELLANE PRN (12:14)
[2022-01-08] MEDS ORDERED: INSULIN REGULAR 100 UNIT in SODIUM CHLORIDE 0.9% 100 ML IV SCH (12:14)
[2022-01-08] MEDS ORDERED: CLEVIDIPINE BUTYRATE 25 MG in EMPTY BAG 1 BAG IV SCH (12:14)
[2022-01-08] MEDS ORDERED: IPRATROPIUM-ALBUTEROL 3 ML NEB INHALATION PRN (12:14)
[2022-01-08] MEDS ORDERED: AMIODARONE 360 MG in DEXTROSE 5% IN WATER 200 ML IV ONE ×2 (12:14)
[2022-01-08] MEDS ORDERED: hydrALAZINE HCL 20 MG/ML 1 ML VIAL IVP PRN (12:14)
[2022-01-08] MEDS: LACTATED RINGERS 1,000 ML IV SCH (12:45)
--- NOTE | 2022-01-08 12:45 | P.OP ---
Date of Procedure: 01/08/22 Preoperative Diagnosis: Severe Mitral Regurgitation Postoperative Diagnosis: Same Procedure(s) Performed: 1. Mitral Valve Repair with #26 Physio II Ring 2. Suture closure of left atrial appendage 3. Transesophageal Echo Implants: #26 Physio II Ring Anesthesia: SANJAYA Surgeon: Levi Ceja Postal Supervisor #1: Ez Maher Postal Supervisor #2: Charles Romero Estimated Blood Loss (ml): 500 Condition: stable Disposition: ICU Indications for Procedure: This patient is a 71 year-old female who was referred to us with a history of mitral regurgitation. Our evaluation revealed that she was progressively symptomatic with shortness of breath and class 3 CHF. Her ventricular function was preserved and coronary angiography did not reveal any coronary artery disease. We recommended surgical repair and she was in agreement and informed consent was obtained for mitral valve repair. Operative Findings: The patient underwent central line, swan magali catheter and arterial line placement in the pre-operative suite. She was brought back to the operating room and placed on the table in the supine position. General endotracheal anesthesia was induced and she was prepped form the chin to the ankles in the usual sterile fashion. A time-out was performed and pre-operative antibiotics were given. A midline incision was made on the chest. This was carried down to the bone and a median sternotomy was performed. Hemostasis on the sternum was achieved with electrocautery only. The pericardium was incised in a T fashion and a pericardial cradle was created. The left and right pleura were incised widely. The patient was systemically heparinized. We then cannulated the ascending aorta for arterial cannulation with bi-caval cannulation via the superior vena cava and dual stage right atrial appendage. Antegrade and retrograde cannula's were placed in he ascending aorta and coronary sinus respectively. Once the ACT > 480 cardiopulmonary bypass was initiated and the aorta was crossclamped. Antegrade and retrograde crystalloid based cardioplegia was given with immediate arrest. Tapes were placed around the SVC and IVC for exposure. The left atrial groove was developed and incised. The ghanshyam retractor was used to expose the mitral valve and left atrial appendage. The left atrial appendage was suture ligated using 3-0 prolene in a running fashion x 2. Upon inspection of the mitral valve, the leaflets were relatively normal in structure except some mild redundancy and billowing of p2. At this point we placed 2-0 ticron sutures circumferentially around the annulus. A #26 Physio II ring was then sutured onto the annulus and the valve was tested. There was no evidence of leak with good coaptation point. The left atrium was then de-aired and closed with a single 3-0 prolene layer. Atrial and ventricular wires were placed. The patient was paced and then weaned off cardiopulmonary bypass and de-aired. All of the cannulas were removed and protamine was given. There was excellent hemostasis and trans-esophageal echo revealed no mitral regurgitation. Underlying rhythm was sinus bradycardia however the patient was not requiring any ionotropes or pressors. A chest tube was placed both in the mediastinum and left chest. A bette was left in the right chest. The sternum was closed with #6 steel wires. The fascia was closed with ethibond. The subcutaneous tissues and skin was closed in layers using vicryl. The patient was transported to the ICU without any major complications.
[2022-01-08 12:49] LABS: Glucose,Whole Blood 107 mg/dL (75-99)
[2022-01-08] MEDS ORDERED: ACETAMINOPHEN IV (For NPO) 1,000 MG in EMPTY BAG 1 BAG IVPB SCH (13:00)
[2022-01-08 13:06] LABS: Basophils % (A) 0 %; Eosinophils # (A) 0.1 k/uL (0-0.7); Eosinophils % (A) 1 %; HCT 36.6 % (34.0-46.0); HGB 12.3 gm/dL (11.4-16.0); Lymphocytes # (A) 0.9 k/uL (1.0-4.8); Lymphocytes % (A) 8 %; MCHC 33.5 g/dL (31.0-37.0); MCV 98.3 fL (80.0-100.0); Mean Platelet Volume 8.3; Monocytes # (A) 0.3 k/uL (0-1.0); Monocytes % (A) 3 %; Neutrophils # (A) 9.3 k/uL (1.3-7.7); Neutrophils % (A) 87 %; RBC 3.72 m/uL (3.80-5.40); RDW 13.6 % (11.5-15.5); WBC 10.6 k/uL (3.8-10.6)
[2022-01-08 13:10] LABS: Ionized Calcium 5.1 mg/dL (4.5-5.3)
[2022-01-08] MEDS: IPRATROPIUM-ALBUTEROL 3 ML NEB INHALATION SCH ×3 (13:11→19:34)
[2022-01-08 13:14] LABS: INR 1.5 (<1.2); Partial Thromboplastin Time 39.7 sec (22.0-30.0); Prothrombin Time 15.1 sec (9.0-12.0)
[2022-01-08 13:20] LABS: ALT 23 U/L (4-34); African American GFR (CKD) >90 (>60 ml/min/1.73 sqM); Albumin 2.4 g/dL (3.5-5.0); Anion Gap 5 mmol/L; Blood Urea Nitrogen 14 mg/dL (7-17); Carbon Dioxide 19 mmol/L (22-30); Chloride 114 mmol/L (98-107); Glucose 104 mg/dL (74-99); Non-African American GFR(CKD) >90 (>60 ml/min/1.73 sqM); Sodium 138 mmol/L (137-145); Total Bilirubin 1.1 mg/dL (0.2-1.3); Total Protein 4.3 g/dL (6.3-8.2)
[2022-01-08 13:22] LABS: ABG Base Excess -3.3 mmol/L; ABG HCO3 23 mmol/L (21-25); ABG Oxygen Saturation 63.7 % (94-97); ABG PCO2 48 mmHg (35-45); ABG PH 7.29 (7.35-7.45); ABG TCO2 25 mmol/L (19-24)
[2022-01-08 13:25] LABS: ABG Base Excess -5.3 mmol/L; ABG HCO3 21 mmol/L (21-25); ABG Oxygen Saturation 99.6 % (94-97); ABG PCO2 38 mmHg (35-45); ABG PH 7.34 (7.35-7.45); ABG PO2 >400 mmHg (83-108); ABG TCO2 22 mmol/L (19-24)
[2022-01-08 13:25] LABS: AST 83 U/L (14-36); Potassium 4.4 mmol/L (3.5-5.1)
[2022-01-08 13:26] LABS: Alkaline Phosphatase 37 U/L (38-126)
[2022-01-08 13:27] LABS: Platelet Count 93 k/uL (150-450)
[2022-01-08 13:28] LABS: ABG PO2 35 mmHg (83-108); Allen Test Performed? no
[2022-01-08 13:28] LABS: Poikilocytosis (M) Present
[2022-01-08 13:29] LABS: Allen Test Performed? no
[2022-01-08] MEDS ORDERED: SODIUM BICARB 8.4% 50 ML SYR (1 MEQ/ML) IV STA (13:36)
--- NOTE | 2022-01-08 13:49 | P.CNPUL ---
History of Present Illness Consult date: 01/08/22 Requesting physician: Levi Ceja Reason for consult: other (Mechanical ventilator/critical care management) Chief complaint: Dyspnea on exertion, severe mitral valve regurgitation History of present illness: This is a 71-year-old female patient with a history of class III congestive heart failure and dyspnea on minimal exertion and was found to have severe mitral valve regurgitation. Her only past medical history significant for arthritis. She is a nonsmoker. She was brought in today 01/08/2022 for an elective mitral valve repair utilizing a #26 Physio II ring. There was suture closure left atrial appendage. She is seen in the immediate postoperative setting in the intensive care unit. She is currently intubated on mechanical ventilator. Assist-control mode at a rate of 14, tidal volume 450, FiO2 100% and a PEEP of 5. PA pressure currently 30/17. CVP 12. Cardiac output is 2.1. Cardiac index is low at 1.2. She is currently in sinus rhythm. She has a right pleural chest tube with 240 ML's help as far. Mediastinal and left-sided chest tubes in place with 180 MLS felt thus far. Right IJ [place]-Rudy catheter in place. Right radial arterial line in place. She has received 2 units of packed red blood cells. Her. 2 more units on hold. White count 10.6. Hemoglobin 12.3. Platelet count 93,000. PT 15.1. INR 1.5. Arterial blood gases reveal a P O2 of greater than 400, pCO2 38 and a pH of 7.34. FiO2 will be titrated down. Sodium 138. Potassium 4.4. Chloride 114. Bicarb 19. Creatinine 0.60. Glucose 107. AST 83. ALT 23. Albumin 2.4. Magnesium 4.0. She is currently sedated on propofol at 20 mcg/kg/m. Cleviprex at 1 mg per hour. Urine output is marginal. Review of Systems ROS unobtainable: due to endotracheal tube Past Medical History Past Medical History: Musculoskeletal Disorder, Osteoarthritis (OA), Vascular Disorder Additional Past Medical History / Comment(s): SOB, ekg showed changes, SCOLIOSIS, "vein problem and had injections in legs", insomnia. History of Any Multi-Drug Resistant Organisms: None Reported Past Surgical History: Section, Cholecystectomy, Joint Replacement, Orthopedic Surgery Additional Past Surgical History / Comment(s): HEIDY KNEE ARTHROSCOPIES. HEIDY CARPAL TUNNEL. LEFT SHOULDER X3, pain injections to back, rt knee replacement. Past Anesthesia/Blood Transfusion Reactions: No Reported Reaction, Motion Sickness Past Psychological History: Anxiety Smoking Status: Never smoker Past Alcohol Use History: None Reported Past Drug Use History: None Reported - Past Family History Father Family Medical History: Diabetes Mellitus Sister(s) Family Medical History: Diabetes Mellitus, Osteoarthritis (OA) Medications and Allergies Home Medications Medication Instructions Recorded Confirmed Type Fish Oil/Dha/Epa [Fish Oil 1,200 2,000 mg PO DAILY 08/12/18 01/02/22 History mg Fish Oil] Multivitamins, Thera [Multivitamin 1 tab PO DAILY 08/12/18 01/02/22 History (formulary)] Cranberry Fruit Extract [Cranberry] 500 mg PO DAILY 01/03/19 01/02/22 History L.acidoph,Paracasei, B.lactis 1 cap PO DAILY 01/03/19 01/02/22 History [Probiotic] Turmeric Root Extract [Turmeric] 400 mg PO BID 01/03/19 01/02/22 History clonazePAM [KlonoPIN] 1 mg PO HS 01/03/19 01/02/22 History Aspirin [Adult Low Dose Aspirin EC] 81 mg PO HS 05/22/21 01/02/22 History Ubidecarenone [Co Q-10] 200 mg PO DAILY 05/22/21 01/02/22 History Ibuprofen 800 mg PO Q8H PRN 11/22/21 01/02/22 History Isosorbide Mononitrate ER [Imdur] 30 mg PO QAM 11/22/21 01/02/22 History Vein Support Supplement 1 dose PO DAILY 11/22/21 01/02/22 History Acetaminophen [Tylenol Arthritis] 650 mg PO DIRECTED PRN 01/02/22 01/02/22 History Allergies Allergy/AdvReac Type Severity Reaction Status Date / Time No Known Allergies Allergy Verified 01/08/22 06:01 Physical Exam Vitals: Vital Signs Temp Pulse Resp BP BP Pulse Ox 01/08/22 06:10 97.3 F L 84 20 150/84 147/83 97 Intake and Output 01/07/22 01/08/22 01/08/22 22:59 06:59 14:59 Intake Total 50 672 Output Total 2838 Balance 50 -2166 Intake: IV 50 52 0.9 Sodium Chloride 0 Pressure Bag CARDIAC OUTPUT 0.9 Sodium 0 Chloride Lactated Ringers 1,000 ml 0 @ 50 mls/hr IV .Q20H [facility] Rx#:[id number] Blood Product 620 Rc As-1 Unit 310 [id number] Rc As-1 Unit 310 [id number] Output: Urine 338 Estimated Blood Loss 2500 Other: Weight 65.3 kg GENERAL EXAM: Intubated, sedated 71-year-old female patient, on mechanical ventilator, comfortable in no apparent distress. HEAD: Normocephalic. EYES: Sluggish reaction of pupils, equal size. NOSE: Clear with pink turbinates. THROAT: Endotracheal and gastric tube secured in place No erythema or exudates. NECK: Right IJ [place]-Rudy catheter in place. No masses, no JVD. CHEST: Sternal dressing dry and intact. Right pleural, mediastinal and left pleural chest tubes in place LUNGS: Equal air entry with no crackles, wheeze, rhonchi or dullness. CVS: S1 and S2 normal with no audible murmur, regular rhythm. ABDOMEN: No hepatosplenomegaly. SPINE: No scoliosis or deformity SKIN: No rashes CENTRAL NERVOUS SYSTEM: No focal deficits, tone is normal in all 4 extremities. EXTREMITIES: Right radial arterial line in place. ANUPAM wraps to the bilateral lower extremities There is no peripheral edema. No clubbing, no cyanosis. Peripheral pulses are intact. Results - Laboratory Findings CBC and BMP: 01/08/22 12:51 01/08/22 12:51 ABG ABG pH 7.34 (7.35-7.45) L 01/08/22 13:24 ABG pCO2 38 mmHg (35-45) 01/08/22 13:24 ABG pO2 >400 mmHg (83-108) H 01/08/22 13:24 ABG O2 Saturation 99.6 % (94-97) H 01/08/22 13:24 PT/INR, D-dimer PT 15.1 sec (9.0-12.0) H 01/08/22 12:51 INR 1.5 (<1.2) H 01/08/22 12:51 Abnormal lab findings: Abnormal Labs 01/02/22 01/08/22 01/08/22 09:00 12:47 12:51 RBC 3.72 L Plt Count 93 L D Neutrophils # 9.3 H Lymphocytes # 0.9 L PT INR APTT ABG pH ABG pCO2 ABG pO2 ABG Total CO2 ABG O2 Saturation Chloride Carbon Dioxide Glucose POC Glucose (mg/dL) 107 H Calcium Magnesium AST Alkaline Phosphatase Total Protein Albumin Crossmatch See Detail 01/08/22 01/08/22 01/08/22 12:51 12:51 13:20 RBC Plt Count Neutrophils # Lymphocytes # PT 15.1 H INR 1.5 H APTT 39.7 H ABG pH 7.29 L ABG pCO2 48 H ABG pO2 35 L* ABG Total CO2 25 H ABG O2 Saturation 63.7 L Chloride 114 H Carbon Dioxide 19 L Glucose 104 H POC Glucose (mg/dL) Calcium 8.0 L Magnesium 4.0 H AST 83 H Alkaline Phosphatase 37 L Total Protein 4.3 L Albumin 2.4 L Crossmatch 01/08/22 13:24 RBC Plt Count Neutrophils # Lymphocytes # PT INR APTT ABG pH 7.34 L ABG pCO2 ABG pO2 >400 H ABG Total CO2 ABG O2 Saturation 99.6 H Chloride Carbon Dioxide Glucose POC Glucose (mg/dL) Calcium Magnesium AST Alkaline Phosphatase Total Protein Albumin Crossmatch - Diagnostic Findings Chest x-ray: image reviewed Assessment and Plan Assessment: 1 Symptomatic severe mitral regurgitation, status post mitral valve repair with a #26 Physio II ring. Postoperative day #0. 2 Thrombocytopenia, current platelets 93,000 2 units of platelets on hold. Status post 2 units of packed red blood cells. 2 units on hold. 2 History of arthritis Plan: The patient was seen and evaluated Chest x-ray, ABGs and labs reviewed Titrate down the FiO2 We will plan for early extubation protocol if tolerated Continue to monitor chest tube output Continue to monitor cardiac output/cardiac index closely Follow-Up labs Are Pending We will continue to follow and make further recommendations based on her clinical status I, the cosigning physician, performed a history & physical examination of the patient. Lungs sounds are clear. Maintaining good O2 saturations in the 90s on 100% FiO2 and a PEEP of 5. The mechanical ventilator. I discussed the assessment and plan of care with my nurse practitioner, Krysten Jordan. I attest to the above consultation as dictated by her. I have personally seen and examined the patient, performed the documentation and the assessment and plan as written. Number of minutes spent on the visit: 20.
--- NOTE | 2022-01-08 14:07 | P.CONS ---
History of Present Illness - Reason for Consult Consult date: 01/08/22 Medical Management Requesting physician: Peg Cabrales - Chief Complaint Mitral valve replacement - History of Present Illness This is 71-year-old female patient of Dr. Agee who presented for an elective mitral valve replacement with Dr. Maher on 01/08/2022. Patient has a past medical history of congestive heart failure with dyspnea and was found to have severe mitral valve regurg. Additional medical history includes arthritis and anxiety. Patient is currently on mechanical ventilation postoperatively in the intensive care unit. Patient is currently sedated with propofol. Current vent settings before meals controlled rate of 14, tidal volume 450, FiO2 100% and PEEP of 5. Mediastinal and left-sided Chest tubes in place. Midline dressing is clean dry and intact. Cardiothoracic, critical care and cardiology services are following. Thank you for this consultation we will continue to follow patient closely throughout stay Review of Systems Please refer to HPI otherwise unremarkable Past Medical History Past Medical History: Musculoskeletal Disorder, Osteoarthritis (OA), Vascular Disorder Additional Past Medical History / Comment(s): SOB, ekg showed changes, SCOLIOSIS, "vein problem and had injections in legs", insomnia. History of Any Multi-Drug Resistant Organisms: None Reported Past Surgical History: Section, Cholecystectomy, Joint Replacement, Orthopedic Surgery Additional Past Surgical History / Comment(s): HEIDY KNEE ARTHROSCOPIES. HEIDY CARPAL TUNNEL. LEFT SHOULDER X3, pain injections to back, rt knee replacement. Past Anesthesia/Blood Transfusion Reactions: No Reported Reaction, Motion Sickness Past Psychological History: Anxiety Smoking Status: Never smoker Past Alcohol Use History: None Reported Past Drug Use History: None Reported - Past Family History Father Family Medical History: Diabetes Mellitus Sister(s) Family Medical History: Diabetes Mellitus, Osteoarthritis (OA) Medications and Allergies Home Medications Medication Instructions Recorded Confirmed Type Fish Oil/Dha/Epa [Fish Oil 1,200 2,000 mg PO DAILY 08/12/18 01/02/22 History mg Fish Oil] Multivitamins, Thera [Multivitamin 1 tab PO DAILY 08/12/18 01/02/22 History (formulary)] Cranberry Fruit Extract [Cranberry] 500 mg PO DAILY 01/03/19 01/02/22 History L.acidoph,Paracasei, B.lactis 1 cap PO DAILY 01/03/19 01/02/22 History [Probiotic] Turmeric Root Extract [Turmeric] 400 mg PO BID 01/03/19 01/02/22 History clonazePAM [KlonoPIN] 1 mg PO HS 01/03/19 01/02/22 History Aspirin [Adult Low Dose Aspirin EC] 81 mg PO HS 05/22/21 01/02/22 History Ubidecarenone [Co Q-10] 200 mg PO DAILY 05/22/21 01/02/22 History Ibuprofen 800 mg PO Q8H PRN 11/22/21 01/02/22 History Isosorbide Mononitrate ER [Imdur] 30 mg PO QAM 11/22/21 01/02/22 History Vein Support Supplement 1 dose PO DAILY 11/22/21 01/02/22 History Acetaminophen [Tylenol Arthritis] 650 mg PO DIRECTED PRN 01/02/22 01/02/22 History Allergies Allergy/AdvReac Type Severity Reaction Status Date / Time No Known Allergies Allergy Verified 01/08/22 06:01 Physical Exam Vitals: Vital Signs Temp Pulse Resp BP BP Pulse Ox 01/08/22 06:10 97.3 F L 84 20 150/84 147/83 97 Intake and Output 01/07/22 01/08/22 01/08/22 22:59 06:59 14:59 Intake Total 50 672 Output Total 2838 Balance 50 -2166 Intake: IV 50 52 0.9 Sodium Chloride 0 Pressure Bag CARDIAC OUTPUT 0.9 Sodium 0 Chloride Lactated Ringers 1,000 ml 0 @ 50 mls/hr IV .[facility] Rx#:[id number] Blood Product 620 Rc As-1 Unit 310 [id number] As-1 Unit 310 [id number] Output: Urine 338 Estimated Blood Loss 2500 Other: Weight 65.3 kg Head normocephalic Neck supple Lungs clear to auscultation bilaterally no wheezing or crackles Heart regular rate and rhythm S1-S2, no rub or gallop. Midline dressing clean dry and intact Abdomen is soft nontender nondistended positive bowel sounds no hepatosplenomega ly Extremities no edema Neuro mechanical ventilation on IV sedation Results CBC & Chem 7: 01/08/22 12:51 01/08/22 12:51 Labs: Abnormal Lab Results - Last 24 Hours (Table) 01/02/22 01/08/22 01/08/22 Range/Units 09:00 12:47 12:51 RBC 3.72 L (3.80-5.40) m/uL Plt Count 93 L D (150-450) k/uL Neutrophils # 9.3 H (1.3-7.7) k/uL Lymphocytes # 0.9 L (1.0-4.8) k/uL PT (9.0-12.0) sec INR (<1.2) APTT (22.0-30.0) sec ABG pH (7.35-7.45) ABG pCO2 (35-45) mmHg ABG pO2 (83-108) mmHg ABG Total CO2 (19-24) mmol/L ABG O2 Saturation (94-97) % Chloride (98-107) mmol/L Carbon Dioxide (22-30) mmol/L Glucose (74-99) mg/dL POC Glucose (mg/dL) 107 H (75-99) mg/dL Calcium (8.4-10.2) mg/dL Magnesium (1.6-2.3) mg/dL AST (14-36) U/L Alkaline Phosphatase (38-126) U/L Total Protein (6.3-8.2) g/dL Albumin (3.5-5.0) g/dL Crossmatch See Detail 01/08/22 01/08/22 01/08/22 Range/Units 12:51 12:51 13:20 RBC (3.80-5.40) m/uL Plt Count (150-450) k/uL Neutrophils # (1.3-7.7) k/uL Lymphocytes # (1.0-4.8) k/uL PT 15.1 H (9.0-12.0) sec INR 1.5 H (<1.2) APTT 39.7 H (22.0-30.0) sec ABG pH 7.29 L (7.35-7.45) ABG pCO2 48 H (35-45) mmHg ABG pO2 35 L* (83-108) mmHg ABG Total CO2 25 H (19-24) mmol/L ABG O2 Saturation 63.7 L (94-97) % Chloride 114 H (98-107) mmol/L Carbon Dioxide 19 L (22-30) mmol/L Glucose 104 H (74-99) mg/dL POC Glucose (mg/dL) (75-99) mg/dL Calcium 8.0 L (8.4-10.2) mg/dL Magnesium 4.0 H (1.6-2.3) mg/dL AST 83 H (14-36) U/L Alkaline Phosphatase 37 L (38-126) U/L Total Protein 4.3 L (6.3-8.2) g/dL Albumin 2.4 L (3.5-5.0) g/dL Crossmatch 01/08/22 Range/Units 13:24 RBC (3.80-5.40) m/uL Plt Count (150-450) k/uL Neutrophils # (1.3-7.7) k/uL Lymphocytes # (1.0-4.8) k/uL PT (9.0-12.0) sec INR (<1.2) APTT (22.0-30.0) sec ABG pH 7.34 L (7.35-7.45) ABG pCO2 (35-45) mmHg ABG pO2 >400 H (83-108) mmHg ABG Total CO2 (19-24) mmol/L ABG O2 Saturation 99.6 H (94-97) % Chloride (98-107) mmol/L Carbon Dioxide (22-30) mmol/L Glucose (74-99) mg/dL POC Glucose (mg/dL) (75-99) mg/dL Calcium (8.4-10.2) mg/dL Magnesium (1.6-2.3) mg/dL AST (14-36) U/L Alkaline Phosphatase (38-126) U/L Total Protein (6.3-8.2) g/dL Albumin (3.5-5.0) g/dL Crossmatch Assessment and Plan Assessment: 1. Status post mitral valve replacement on 01/08/[address] Maher. 2. History of severe mitral valve regurg with symptomatic dyspnea 3. History of arthritis 4. History of anxiety Patient remains in the intensive care unit Patient remains on mechanical ventilation and IV sedation Thank you for this consultation we'll continue to follow patient closely throughout stay Time with Patient: Greater than 30 (Greater than 60% of the total time spent in counseling and coordination of care)
[2022-01-08 14:10] LABS: Glucose,Whole Blood 158 mg/dL (75-99)
--- NOTE | 2022-01-08 14:50 | XR ---
EXAMINATION TYPE: XR chest 1V portable DATE OF EXAM: 01/08/2022 COMPARISON: 01/02/2022 INDICATION: Postop cardiac surgery TECHNIQUE: Single frontal view of the chest is obtained. FINDINGS: The heart size is normal. The pulmonary vasculature is normal. No suspicious infiltrates are evident. A small left pleural effusion may be present. Sternotomy wires are present from prior cardiac valve surgery. Endotracheal tube tip is 3.5 cm above the lucas. [place]-Rudy catheter is present tip in the main pulmo nary artery. Mediastinal tubes are present. Left-sided chest tube is present. No pneumothorax is evid ent. A nasogastric tube is present with the tip within the proximal left upper quadrant of the abdome n. IMPRESSION: 1. Small left pleural effusion. 2. Lines and catheters discussed above.
[2022-01-08 15:12] LABS: Glucose,Whole Blood 153 mg/dL (75-99)
[2022-01-08] MEDS ORDERED: MUPIROCIN 2% OINT 22 GM TUBE NASAL ONE (15:15)
[2022-01-08 15:26] LABS: Basophils % (A) 0 %; Eosinophils % (A) 0 %; HCT 39.5 % (34.0-46.0); HGB 13.2 gm/dL (11.4-16.0); Lymphocytes # (A) 1.2 k/uL (1.0-4.8); Lymphocytes % (A) 9 %; MCH 32.6 pg (25.0-35.0); MCHC 33.4 g/dL (31.0-37.0); MCV 97.7 fL (80.0-100.0); Mean Platelet Volume 8.1; Monocytes # (A) 0.6 k/uL (0-1.0); Monocytes % (A) 5 %; Neutrophils # (A) 11.6 k/uL (1.3-7.7); Neutrophils % (A) 86 %; Platelet Count 110 k/uL (150-450); RBC 4.04 m/uL (3.80-5.40); RDW 13.2 % (11.5-15.5); WBC 13.5 k/uL (3.8-10.6)
[2022-01-08 16:11] LABS: Glucose,Whole Blood 160 mg/dL (75-99)
[2022-01-08] MEDS: ACETAMINOPHEN IV (For NPO) 1,000 MG in EMPTY BAG 1 BAG IVPB SCH ×2 (16:14→22:03)
[2022-01-08] MEDS: HEPARIN SODIUM,PORCINE/PF 5,000 UNIT/0.5 ML SYRINGE SQ SCH ×2 (16:27→23:48)
[2022-01-08] MEDS: ALBUMIN HUMAN 5% 250 ML in EMPTY BAG 1 BAG IVPB PRN ×3 (16:29→21:11)
[2022-01-08 17:14] LABS: Glucose,Whole Blood 144 mg/dL (75-99)
[2022-01-08] MEDS: HYDROcodone/APAP 5-325MG 1 EACH TAB PO PRN ×2 (17:26→23:50)
[2022-01-08] MEDS: KETOROLAC 30 MG/ML 1 ML VIAL IVP SCH ×2 (17:27→23:48)
[2022-01-08] MEDS ORDERED: AMIODARONE 450 MG in DEXTROSE 5% IN WATER 250 ML IV SCH ×2 (18:00)
[2022-01-08 18:03] LABS: Glucose,Whole Blood 126 mg/dL (75-99)
[2022-01-08] MEDS: ONDANSETRON 4 MG/2 ML VIAL IVP PRN (18:37)
[2022-01-08 19:05] LABS: Basophils % (A) 0 %; Eosinophils % (A) 0 %; HCT 30.3 % (34.0-46.0); Lymphocytes # (A) 0.7 k/uL (1.0-4.8); Lymphocytes % (A) 7 %; MCH 32.9 pg (25.0-35.0); MCHC 33.2 g/dL (31.0-37.0); MCV 99.1 fL (80.0-100.0); Mean Platelet Volume 8.5; Monocytes # (A) 0.4 k/uL (0-1.0); Monocytes % (A) 4 %; Neutrophils # (A) 9.1 k/uL (1.3-7.7); Neutrophils % (A) 89 %; Platelet Count 104 k/uL (150-450); RBC 3.06 m/uL (3.80-5.40); WBC 10.3 k/uL (3.8-10.6)
[2022-01-08 19:07] LABS: HGB 10.1 gm/dL (11.4-16.0)
[2022-01-08 19:36] LABS: African American GFR (CKD) >90 (>60 ml/min/1.73 sqM); Anion Gap 5 mmol/L; Blood Urea Nitrogen 15 mg/dL (7-17); Calcium 7.5 mg/dL (8.4-10.2); Carbon Dioxide 23 mmol/L (22-30); Chloride 111 mmol/L (98-107); Glucose 107 mg/dL (74-99); Non-African American GFR(CKD) >90 (>60 ml/min/1.73 sqM); Sodium 139 mmol/L (137-145)
[2022-01-08 19:37] LABS: Glucose,Whole Blood 101 mg/dL (75-99)
[2022-01-08 20:57] LABS: Glucose,Whole Blood 135 mg/dL (75-99)
[2022-01-08 22:01] LABS: Glucose,Whole Blood 130 mg/dL (75-99)
[2022-01-08 22:58] LABS: Glucose,Whole Blood 122 mg/dL (75-99)
[2022-01-09 00:07] LABS: Glucose,Whole Blood 98 mg/dL (75-99)
[2022-01-09 01:01] LABS: Glucose,Whole Blood 115 mg/dL (75-99)
[2022-01-09 01:57] LABS: Glucose,Whole Blood 131 mg/dL (75-99)
[2022-01-09 03:02] LABS: Glucose,Whole Blood 126 mg/dL (75-99)
[2022-01-09] MEDS: HYDROcodone/APAP 5-325MG 1 EACH TAB PO PRN ×3 (04:00→20:27)
[2022-01-09 04:04] LABS: Glucose,Whole Blood 111 mg/dL (75-99)
[2022-01-09 04:24] LABS: Basophils % (A) 0 %; Eosinophils % (A) 0 %; HCT 23.9 % (34.0-46.0); Lymphocytes # (A) 0.8 k/uL (1.0-4.8); Lymphocytes % (A) 10 %; MCH 32.3 pg (25.0-35.0); MCHC 33.2 g/dL (31.0-37.0); MCV 97.4 fL (80.0-100.0); Mean Platelet Volume 8.8; Monocytes # (A) 0.4 k/uL (0-1.0); Monocytes % (A) 4 %; Neutrophils # (A) 7.3 k/uL (1.3-7.7); Neutrophils % (A) 85 %; Platelet Count 95 k/uL (150-450); RBC 2.46 m/uL (3.80-5.40); RDW 13.5 % (11.5-15.5); WBC 8.6 k/uL (3.8-10.6)
[2022-01-09 04:28] LABS: Ionized Calcium 4.9 mg/dL (4.5-5.3)
[2022-01-09 04:35] LABS: ALT 26 U/L (4-34); AST 90 U/L (14-36); African American GFR (CKD) >90 (>60 ml/min/1.73 sqM); Albumin 2.6 g/dL (3.5-5.0); Alkaline Phosphatase 35 U/L (38-126); Anion Gap 5 mmol/L; Blood Urea Nitrogen 16 mg/dL (7-17); Calcium 7.7 mg/dL (8.4-10.2); Carbon Dioxide 23 mmol/L (22-30); Chloride 107 mmol/L (98-107); Glucose 103 mg/dL (74-99); Magnesium 2.7 mg/dL (1.6-2.3); Non-African American GFR(CKD) 90 (>60 ml/min/1.73 sqM); Potassium 3.8 mmol/L (3.5-5.1); Sodium 135 mmol/L (137-145); Total Bilirubin 0.9 mg/dL (0.2-1.3); Total Protein 4.3 g/dL (6.3-8.2)
[2022-01-09 04:38] LABS: HGB 7.9 gm/dL (11.4-16.0)
[2022-01-09] MEDS ORDERED: POTASSIUM CHLORIDE ER 20 MEQ TAB.ER PO SCH (05:00)
[2022-01-09 05:03] LABS: Glucose,Whole Blood 126 mg/dL (75-99)
[2022-01-09] MEDS: ONDANSETRON 4 MG/2 ML VIAL IVP PRN ×3 (06:00→20:16)
[2022-01-09] MEDS: ALBUMIN HUMAN 5% 250 ML in EMPTY BAG 1 BAG IVPB PRN ×4 (06:27→18:14)
[2022-01-09] MEDS: KETOROLAC 30 MG/ML 1 ML VIAL IVP SCH (06:30)
[2022-01-09 06:54] LABS: Glucose,Whole Blood 116 mg/dL (75-99)
--- NOTE | 2022-01-09 07:38 | XR ---
EXAMINATION TYPE: XR chest 1V portable DATE OF EXAM: 01/09/2022 Comparison: 01/08/2022 Clinical History: 71-year-old female Post Operative Cardiac Surgery Findings: Patient is rotated towards the right. Right IJ [place]-Rudy catheter. Tip in the right main pulmonary ar nola. Mediastinal drains. NG tube has been removed as has the ET tube. Left chest tube in place. Ther e is a trace 5 mm left apical pneumothorax. Median sternotomy wires with cardiac annuloplasty ring. H eart borderline enlarged. There may be worsening small, partially layering bilateral pleural effusion s with adjacent opacity. Degenerative changes of both shoulders. Impression: 1. Left-sided chest tube in place. There is a trace 5 mm left apical pneumothorax now seen. 2. Borderline cardiomegaly with increasing, partially layering small bilateral pleural effusions with adjacent atelectasis and/or consolidation.
[2022-01-09] MEDS: IPRATROPIUM-ALBUTEROL 3 ML NEB INHALATION SCH ×4 (07:50→20:07)
--- NOTE | 2022-01-09 08:05 | P.PN ---
Subjective Progress Note Date: 01/09/22 Principal diagnosis: Severe mitral regurgitation. Previous medical history of chronic diastolic heart failure, never smoker with mild lung disease, remote history of pneumonia, obstructive sleep apnea without CPAP use, arthritis. Vaccinated and boosted against Covid POD #1 mitral valve repair with #26 mm physio-2 ring, ligation of the left atrial appendage, epi-aortic ultrasound, and intraoperative transesophageal echocardiogram performed by anesthesia Postoperative acute blood loss anemia and thrombocytopenia, expected given hemodilution and cardiopulmonary bypass pump The patient was seen and examined this morning sitting up in a recliner in the intensive care unit in no acute distress eating her clear liquid breakfast. She was successfully extubated last night at 17:15. She states pain is most controlled with current medication regimen, denies shortness of breath. Atrially paced on telemetry, underlying rhythm sinus bradycardia in the 50s, currently on no inotropes or pressors. Remains on amiodarone for A. fib prophylaxis. Right internal jugular Fairview/Cordis, right radial arterial line, mediastinal/right pleural chest tubes all remaining present. No other new concerns. Objective - Vital Signs Vital signs: Vital Signs Temp 99.5 F 01/09/22 04:00 Pulse 80 01/09/22 07:00 Resp 15 01/09/22 07:00 BP 80/46 01/09/22 07:00 Pulse Ox 96 01/09/22 07:00 Intake & Output 01/08/22 01/09/22 01/09/22 18:59 06:59 18:59 Intake Total 2252.480 1276.407 309 Output Total 4133 1480 130 Balance -2323.884 516.407 179 Weight 70.9 kg Intake: IV 1136 1328 309 0.9 Sodium Chloride 54 108 9 Pressure Bag ACETAMINOPHEN IV (For NPO 100 ) 1,000 mg In Empty Bag 1 bag @ 400 mls/hr IVPB Q6H [facility] Rx#:[id number] Albumin Human 5% 250 ml 500 500 250 In Empty Bag 1 bag @ 250 mls/hr IVPB Q1HR PRN Rx#: [id number] CARDIAC OUTPUT 0.9 Sodium 130 170 Chloride Lactated Ringers 1,000 ml 300 550 50 @ 20 mls/hr IV .Q24H [facility] Rx#:[id number] Intake, IV Titration 53.116 128.407 Amount ACETAMINOPHEN IV (For NPO 100 ) 1,000 mg In Empty Bag 1 bag @ 400 mls/hr IVPB Q6H [facility] Rx#:[id number] Clevidipine Butyrate 25 13.800 mg In Empty Bag 1 bag @ 1 MG/HR 2 mls/hr IV .Q24H [facility] Rx#:[id number] Insulin Regular 100 unit 12.314 28.407 In Sodium Chloride 0.9% 100 ml @ Per Protocol IV .Q0M [facility] Rx#:[id number] propofoL 1,000 mg In 27.002 Empty Bag 1 bag @ Titrate IV .Q0M [facility] Rx#: [id number] Oral 540 Blood Product 620 Rc As-1 Unit 310 [id number] Rc As-1 Unit 310 [id number] Output: Chest Tube Drainage 750 800 110 Chest Tube Bilateral 280 320 80 Mediastinal Chest Tube Right Anterior 470 480 30 Chest Urine 858 630 20 Emesis 25 50 Estimated Blood Loss 2500 Other: Voiding Method Indwelling Catheter Indwelling Catheter ABP, PAP, CO, CI - Last Documented Arterial Blood Pressure 96/45 Pulmonary Artery Pressure 26/10 Cardiac Output 4.2 Cardiac Index 2.5 - Exam CONSTITUTIONAL: Appears comfortable, cooperative, no acute distress RESPIRATORY: Lungs sounds diminished bilaterally. Respirations even, nonlabored. Currently on 2 L nasal cannula with oxygen saturation 99%. Able to achieve 500 mL on incentive spirometry. Strong cough. CARDIOVASCULAR: S1, S2 present. Regular rate and rhythm, atrially paced on on telemetry with underlying rhythm sinus bradycardia in the mid 50s. Sternum stable. Palpable peripheral pulses bilaterally. No edema present. No calf pain or tenderness noted. Heart hugger in place with patient demonstrating appropriate use. Antiembolism stockings, SCDs present. GASTROINTESTINAL: Abdomen soft, nontender, nondistended. Hypoactive bowel sounds present 4 quadrants. Tolerating clear liquid diet. Negative flatus GENITOURINARY: Isaac present draining clear, yellow urine. Output overnight 30-45 mL per hour INTEGUMENTARY: Skin is warm and dry with evidence of good perfusion. Anterior chest incision well approximated and covered with dry intact dressing. NEUROLOGIC: Cranial nerves II through XII intact MUSKULOSKELETAL: Able to move all extremities, strength equal bilaterally, gait normal PSYCHIATRIC: Alert and oriented to person place and time, appropriate affect, intact judgment and insight INVASIVE LINES AND TUBES: Mediastinal/right pleural chest tubes present and connected to wall suction, no air leaks present. Mediastinal tube with 240 mL serosanguineous drainage overnight, 800 mL since surgery. Right pleural chest tube with 310 mL serosanguineous drainage overnight, 1000 mL since surgery. A/V epicardial pacemaker wires present, connected to generator, AAI mode rate 80 bpm. Right internal jugular Fairview/Cordis, right radial arterial line present. Last CO/CI 4.2/2.5, PA 28/12, CVP 5. - Allied health notes Allied health notes reviewed: nursing - Labs CBC & Chem 7: 01/09/22 04:00 01/09/22 04:00 Labs: Abnormal Lab Results - Last 24 Hours (Table) 01/02/22 01/08/22 01/08/22 Range/Units 09:00 12:47 12:51 WBC (3.8-10.6) k/uL RBC 3.72 L (3.80-5.40) m/uL Hgb (11.4-16.0) gm/dL Hct (34.0-46.0) % Plt Count 93 L D (150-450) k/uL Neutrophils # 9.3 H (1.3-7.7) k/uL Lymphocytes # 0.9 L (1.0-4.8) k/uL PT (9.0-12.0) sec INR (<1.2) APTT (22.0-30.0) sec ABG pH (7.35-7.45) ABG pCO2 (35-45) mmHg ABG pO2 (83-108) mmHg ABG Total CO2 (19-24) mmol/L ABG O2 Saturation (94-97) % Sodium (137-145) mmol/L Chloride (98-107) mmol/L Carbon Dioxide (22-30) mmol/L Glucose (74-99) mg/dL POC Glucose (mg/dL) 107 H (75-99) mg/dL Calcium (8.4-10.2) mg/dL Magnesium (1.6-2.3) mg/dL AST (14-36) U/L Alkaline Phosphatase (38-126) U/L Total Protein (6.3-8.2) g/dL Albumin (3.5-5.0) g/dL Crossmatch See Detail 01/08/22 01/08/22 01/08/22 Range/Units 12:51 12:51 13:20 WBC (3.8-10.6) k/uL RBC (3.80-5.40) m/uL Hgb (11.4-16.0) gm/dL Hct (34.0-46.0) % Plt Count (150-450) k/uL Neutrophils # (1.3-7.7) k/uL Lymphocytes # (1.0-4.8) k/uL PT 15.1 H (9.0-12.0) sec INR 1.5 H (<1.2) APTT 39.7 H (22.0-30.0) sec ABG pH 7.29 L (7.35-7.45) ABG pCO2 48 H (35-45) mmHg ABG pO2 35 L* (83-108) mmHg ABG Total CO2 25 H (19-24) mmol/L ABG O2 Saturation 63.7 L (94-97) % Sodium (137-145) mmol/L Chloride 114 H (98-107) mmol/L Carbon Dioxide 19 L (22-30) mmol/L Glucose 104 H (74-99) mg/dL POC Glucose (mg/dL) (75-99) mg/dL Calcium 8.0 L (8.4-10.2) mg/dL Magnesium 4.0 H (1.6-2.3) mg/dL AST 83 H (14-36) U/L Alkaline Phosphatase 37 L (38-126) U/L Total Protein 4.3 L (6.3-8.2) g/dL Albumin 2.4 L (3.5-5.0) g/dL Crossmatch 01/08/22 01/08/22 01/08/22 Range/Units 13:24 14:08 15:00 WBC 13.5 H (3.8-10.6) k/uL RBC (3.80-5.40) m/uL Hgb (11.4-16.0) gm/dL Hct (34.0-46.0) % Plt Count 110 L (150-450) k/uL Neutrophils # 11.6 H (1.3-7.7) k/uL Lymphocytes # (1.0-4.8) k/uL PT (9.0-12.0) sec INR (<1.2) APTT (22.0-30.0) sec ABG pH 7.34 L (7.35-7.45) ABG pCO2 (35-45) mmHg ABG pO2 >400 H (83-108) mmHg ABG Total CO2 (19-24) mmol/L ABG O2 Saturation 99.6 H (94-97) % Sodium (137-145) mmol/L Chloride (98-107) mmol/L Carbon Dioxide (22-30) mmol/L Glucose (74-99) mg/dL POC Glucose (mg/dL) 158 H (75-99) mg/dL Calcium (8.4-10.2) mg/dL Magnesium (1.6-2.3) mg/dL AST (14-36) U/L Alkaline Phosphatase (38-126) U/L Total Protein (6.3-8.2) g/dL Albumin (3.5-5.0) g/dL Crossmatch 01/08/22 01/08/22 01/08/22 Range/Units 15:10 16:10 17:12 WBC (3.8-10.6) k/uL RBC (3.80-5.40) m/uL Hgb (11.4-16.0) gm/dL Hct (34.0-46.0) % Plt Count (150-450) k/uL Neutrophils # (1.3-7.7) k/uL Lymphocytes # (1.0-4.8) k/uL PT (9.0-12.0) sec INR (<1.2) APTT (22.0-30.0) sec ABG pH (7.35-7.45) ABG pCO2 (35-45) mmHg ABG pO2 (83-108) mmHg ABG Total CO2 (19-24) mmol/L ABG O2 Saturation (94-97) % Sodium (137-145) mmol/L Chloride (98-107) mmol/L Carbon Dioxide (22-30) mmol/L Glucose (74-99) mg/dL POC Glucose (mg/dL) 153 H 160 H 144 H (75-99) mg/dL Calcium (8.4-10.2) mg/dL Magnesium (1.6-2.3) mg/dL AST (14-36) U/L Alkaline Phosphatase (38-126) U/L Total Protein (6.3-8.2) g/dL Albumin (3.5-5.0) g/dL Crossmatch 01/08/22 01/08/22 01/08/22 Range/Units 18:02 18:50 18:56 WBC (3.8-10.6) k/uL RBC 3.06 L (3.80-5.40) m/uL Hgb 10.1 L D (11.4-16.0) gm/dL Hct 30.3 L (34.0-46.0) % Plt Count 104 L (150-450) k/uL Neutrophils # 9.1 H (1.3-7.7) k/uL Lymphocytes # 0.7 L (1.0-4.8) k/uL PT (9.0-12.0) sec INR (<1.2) APTT (22.0-30.0) sec ABG pH (7.35-7.45) ABG pCO2 (35-45) mmHg ABG pO2 (83-108) mmHg ABG Total CO2 (19-24) mmol/L ABG O2 Saturation (94-97) % Sodium (137-145) mmol/L Chloride 111 H (98-107) mmol/L Carbon Dioxide (22-30) mmol/L Glucose 107 H (74-99) mg/dL POC Glucose (mg/dL) 126 H (75-99) mg/dL Calcium 7.5 L (8.4-10.2) mg/dL Magnesium (1.6-2.3) mg/dL AST (14-36) U/L Alkaline Phosphatase (38-126) U/L Total Protein (6.3-8.2) g/dL Albumin (3.5-5.0) g/dL Crossmatch 01/08/22 01/08/22 01/08/22 Range/Units 19:36 20:55 21:57 WBC (3.8-10.6) k/uL RBC (3.80-5.40) m/uL Hgb (11.4-16.0) gm/dL Hct (34.0-46.0) % Plt Count (150-450) k/uL Neutrophils # (1.3-7.7) k/uL Lymphocytes # (1.0-4.8) k/uL PT (9.0-12.0) sec INR (<1.2) APTT (22.0-30.0) sec ABG pH (7.35-7.45) ABG pCO2 (35-45) mmHg ABG pO2 (83-108) mmHg ABG Total CO2 (19-24) mmol/L ABG O2 Saturation (94-97) % Sodium (137-145) mmol/L Chloride (98-107) mmol/L Carbon Dioxide (22-30) mmol/L Glucose (74-99) mg/dL POC Glucose (mg/dL) 101 H 135 H 130 H (75-99) mg/dL Calcium (8.4-10.2) mg/dL Magnesium (1.6-2.3) mg/dL AST (14-36) U/L Alkaline Phosphatase (38-126) U/L Total Protein (6.3-8.2) g/dL Albumin (3.5-5.0) g/dL Crossmatch 01/08/22 01/09/22 01/09/22 Range/Units 22:57 00:59 01:55 WBC (3.8-10.6) k/uL RBC (3.80-5.40) m/uL Hgb (11.4-16.0) gm/dL Hct (34.0-46.0) % Plt Count (150-450) k/uL Neutrophils # (1.3-7.7) k/uL Lymphocytes # (1.0-4.8) k/uL PT (9.0-12.0) sec INR (<1.2) APTT (22.0-30.0) sec ABG pH (7.35-7.45) ABG pCO2 (35-45) mmHg ABG pO2 (83-108) mmHg ABG Total CO2 (19-24) mmol/L ABG O2 Saturation (94-97) % Sodium (137-145) mmol/L Chloride (98-107) mmol/L Carbon Dioxide (22-30) mmol/L Glucose (74-99) mg/dL POC Glucose (mg/dL) 122 H 115 H 131 H (75-99) mg/dL Calcium (8.4-10.2) mg/dL Magnesium (1.6-2.3) mg/dL AST (14-36) U/L Alkaline Phosphatase (38-126) U/L Total Protein (6.3-8.2) g/dL Albumin (3.5-5.0) g/dL Crossmatch 01/09/22 01/09/22 01/09/22 Range/Units 03:00 04:00 04:00 WBC (3.8-10.6) k/uL RBC 2.46 L (3.80-5.40) m/uL Hgb 7.9 L D (11.4-16.0) gm/dL Hct 23.9 L (34.0-46.0) % Plt Count 95 L (150-450) k/uL Neutrophils # (1.3-7.7) k/uL Lymphocytes # 0.8 L (1.0-4.8) k/uL PT (9.0-12.0) sec INR (<1.2) APTT (22.0-30.0) sec ABG pH (7.35-7.45) ABG pCO2 (35-45) mmHg ABG pO2 (83-108) mmHg ABG Total CO2 (19-24) mmol/L ABG O2 Saturation (94-97) % Sodium 135 L (137-145) mmol/L Chloride (98-107) mmol/L Carbon Dioxide (22-30) mmol/L Glucose 103 H (74-99) mg/dL POC Glucose (mg/dL) 126 H (75-99) mg/dL Calcium 7.7 L (8.4-10.2) mg/dL Magnesium 2.7 H (1.6-2.3) mg/dL AST 90 H (14-36) U/L Alkaline Phosphatase 35 L (38-126) U/L Total Protein 4.3 L (6.3-8.2) g/dL Albumin 2.6 L (3.5-5.0) g/dL Crossmatch 01/09/22 01/09/22 01/09/22 Range/Units 04:02 05:01 06:46 WBC (3.8-10.6) k/uL RBC (3.80-5.40) m/uL Hgb (11.4-16.0) gm/dL Hct (34.0-46.0) % Plt Count (150-450) k/uL Neutrophils # (1.3-7.7) k/uL Lymphocytes # (1.0-4.8) k/uL PT (9.0-12.0) sec INR (<1.2) APTT (22.0-30.0) sec ABG pH (7.35-7.45) ABG pCO2 (35-45) mmHg ABG pO2 (83-108) mmHg ABG Total CO2 (19-24) mmol/L ABG O2 Saturation (94-97) % Sodium (137-145) mmol/L Chloride (98-107) mmol/L Carbon Dioxide (22-30) mmol/L Glucose (74-99) mg/dL POC Glucose (mg/dL) 111 H 126 H 116 H (75-99) mg/dL Calcium (8.4-10.2) mg/dL Magnesium (1.6-2.3) mg/dL AST (14-36) U/L Alkaline Phosphatase (38-126) U/L Total Protein (6.3-8.2) g/dL Albumin (3.5-5.0) g/dL Crossmatch - Imaging and Cardiology Chest x-ray: report reviewed, image reviewed Assessment and Plan Assessment: 1. Severe mitral regurgitation, status post MVR 2. History of chronic diastolic heart failure 3. Never smoker with mild lung disease, preoperative FEV1 68% of predicted 4. Remote history of pneumonia 5. Obstructive sleep apnea without CPAP use 6. Arthritis 7. Vaccinated and boosted against Covid 8. Postoperative acute blood loss anemia and thrombocytopenia, expected Plan: 1. Continue aspirin, statin, Plavix. Will hold beta oli therapy due to underlying bradycardia, will initiate and increase when able 2. Continue amiodarone for A. fib prophylaxis, discontinue IV amiodarone, start oral amiodarone at 200 mg daily 3. Wean O2 as tolerated. Encourage incentive spirometry 10 times every hour while awake. Bronchodilators per pulmonology 4. Increase activity, ambulate as tolerated. PT/OT/cardiac rehab consulted 5. GI/DVT prophylaxis 6. Pain control with current medication regimen 7. Insulin management per primary care service. Patient is not diabetic, preoperative hemoglobin A1c 5.2%, however patient does need tight blood sugar control to prevent infection and promote sternal union 8. Will monitor daily labs and x-rays. Electrolyte replacement per protocol 9. Discontinue Fairview. Connect Cordis to continuous CVP monitoring 10. Continue mediastinal/right pleural chest tube for another 24 hours 11. Continue Isaac catheter for another 24 hours for strict accurate intake and output. Daily weights 12. More recommendations to follow Time with Patient: Greater than 30
[2022-01-09 08:15] LABS: Glucose,Whole Blood 129 mg/dL (75-99)
[2022-01-09] MEDS: CLOPIDOGREL 75 MG TAB PO SCH (08:23)
[2022-01-09] MEDS: ASPIRIN 325 MG TAB PO SCH (08:23)
[2022-01-09] MEDS: HEPARIN SODIUM,PORCINE/PF 5,000 UNIT/0.5 ML SYRINGE SQ SCH ×2 (08:23→17:15)
[2022-01-09] MEDS: MULTIVITAMINS, THERA 1 EACH TAB PO SCH (08:23)
[2022-01-09] MEDS: ATORVASTATIN 40 MG TAB PO SCH (08:23)
[2022-01-09] MEDS: AMIODARONE 200 MG TAB PO SCH (08:26)
[2022-01-09] MEDS: LACTATED RINGERS 1,000 ML IV SCH (08:27)
[2022-01-09] MEDS ORDERED: MAGNESIUM HYDROXIDE 2,400 MG/10 ML CUP PO PRN (09:00)
[2022-01-09] MEDS ORDERED: PANTOPRAZOLE 40 MG/10 ML VIAL IVP SCH (09:00)
[2022-01-09] MEDS ORDERED: bisacodyL 10 MG SUPP RECTAL PRN (09:00)
[2022-01-09] MEDS ORDERED: METOPROLOL TARTRATE 12.5 MG TAB PO SCH (09:00)
[2022-01-09 09:05] LABS: Glucose,Whole Blood 118 mg/dL (75-99)
--- NOTE | 2022-01-09 10:03 | CONS ---
CONSULTATION This is a 71-year-old lady who underwent a mitral valve repair with ligation of left atrial appendage performed yesterday by Dr. Ceja assisted by Dr. Maher. This patient has been extubated, doing very well post procedure. She has no significant obstructive CAD. She sees Dr. Ramos in the outpatient setting, was found to have severe mitral regurgitation with prolapse of posterior mitral leaflet. She is doing very well postoperatively, not on any pressors, resting comfortably. Past medical history is remarkable for osteoarthritis, mitral valve prolapse with severe regurgitation, recent COVID pneumonia. She is status post cholecystectomy and orthopedic surgery. Medications at home include Imdur, ibuprofen, aspirin and multivitamins. On examination, blood pressure is 108/60, pulse rate is 80 per minute, atrial paced. Underlying rhythm is sinus at 58, but with this the index is lower. HEENT unremarkable. Fundus was not examined by me. Neck is supple. No JVD. S1-S2 heard normally. No significant murmurs. Lungs reveal fair air entry. Abdomen is soft. Lower extremities reveal diminished pulses. Central nervous system is normal. IMPRESSION: 1. Status post mitral valve repair. 2. History of COVID pneumonia/infection. 3. No significant obstructive coronary artery disease. RECOMMENDATIONS: I agree with the current management. We will continue incentive spirometry and pulmonary toilet, and based on clinical course we will make further recommendations. Discussed my thoughts with the patient. ANNA / RAHEEMN: [id number] /
[2022-01-09 10:06] LABS: Glucose,Whole Blood 133 mg/dL (75-99)
--- NOTE | 2022-01-09 11:00 | P.PN ---
Subjective Progress Note Date: 01/09/22 Principal diagnosis: POD #1 mitral valve repair with #26 mm physio-2 ring, ligation of the left atrial appendage, epi-aortic ultrasound, and intraoperative transesophageal echocardiogram performed by anesthesia POD #1 mitral valve repair with #26 mm physio-2 ring, ligation of the left atrial appendage, epi-aortic ultrasound, and intraoperative transesophageal echocardiogram performed by anesthesia patient was reevaluated today on , patient is doing well, she had basically uneventful night. She was extubated yesterday at 17:15 p.m. Patient tolerated the extubation well. She is now sitting at a bedside recliner, pain seems to be fairly well controlled, patient is not requiring any pressors or any inotropes. Remains on amiodarone for atrial fibrillation prophylaxis. And continues to have mediastinal and right pleural chest tubes in place. Patient again is in no distress. Chest x- ray showed very minimal atelectasis. WBC count is 8.6 hemoglobin is 7.9. E lectrolytes and renal profile are normal. Objective - Vital Signs Vital signs: Vital Signs Temp 99.5 F 01/09/22 04:00 Pulse 80 01/09/22 10:00 Resp 12 01/09/22 10:00 BP 80/46 01/09/22 07:00 Pulse Ox 92 L 01/09/22 10:00 Intake & Output 01/08/22 01/09/22 01/09/22 18:59 06:59 18:59 Intake Total 2546.164 6695.407 933.238 Output Total 4133 1480 238 Balance -2323.884 516.407 695.238 Weight 70.9 kg Intake: IV 1136 1328 576 0.9 Sodium Chloride 54 108 36 Pressure Bag ACETAMINOPHEN IV (For NPO 100 ) 1,000 mg In Empty Bag 1 bag @ 400 mls/hr IVPB Q6H [facility] Rx#:[id number] Albumin Human 5% 250 ml 500 500 250 In Empty Bag 1 bag @ 250 mls/hr IVPB Q1HR PRN Rx#: [id number] CARDIAC OUTPUT 0.9 Sodium 130 170 40 Chloride Lactated Ringers 1,000 ml 300 550 200 @ 20 mls/hr IV .Q24H [facility] Rx#:[id number] ceFAZolin 2 gm In Sodium 50 Chloride 0.9% 50 ml @ 100 mls/hr IVPB Q8HR [facility] Rx# :[id number] Intake, IV Titration 53.116 128.407 7.238 Amount ACETAMINOPHEN IV (For NPO 100 ) 1,000 mg In Empty Bag 1 bag @ 400 mls/hr IVPB Q6H [facility] Rx#:[id number] Clevidipine Butyrate 25 13.800 mg In Empty Bag 1 bag @ 1 MG/HR 2 mls/hr IV .Q24H [facility] Rx#:[id number] Insulin Regular 100 unit 12.314 28.407 7.238 In Sodium Chloride 0.9% 100 ml @ Per Protocol IV .Q0M [facility] Rx#:[id number] propofoL 1,000 mg In 27.002 Empty Bag 1 bag @ Titrate IV .Q0M [facility] Rx#: [id number] Oral 540 350 Blood Product 620 Rc As-1 Unit 310 [id number] Rc As-1 Unit 310 [id number] Output: Chest Tube Drainage 750 800 160 Chest Tube Bilateral 280 320 90 Mediastinal Chest Tube Right Anterior 470 480 70 Chest Urine 858 630 78 Emesis 25 50 Estimated Blood Loss 2500 Other: Voiding Method Indwelling Catheter Indwelling Catheter Indwelling Catheter ABP, PAP, CO, CI - Last Documented Arterial Blood Pressure 106/43 Pulmonary Artery Pressure 27/10 Cardiac Output 4.0 Cardiac Index 2.4 - Exam Physical Exam: Revealed 71-year-old female in no distress. On 2 L nasal cannula. Head: Atraumatic, normocephalic. HEENT:[Neck is supple.] [No neck masses.] [No thyromegaly.] [No JVD.] Right IJ Cordis is noted in place. Chest: [And S2 breath sounds at the bases no crackles or wheezes. Symmetrical chest expansion. Achieving at least 500 mL on her incentive spirometer. Cardiac Exam: [Normal S1 and S2, no S3 gallop, 2/6 systolic murmur thought the precordium. Abdomen: [Soft, nontender, no megaly, no rebound, no guarding, normal bowel sounds.] Extremities: [No clubbing, no edema, no cyanosis.] Neurological Exam: [No focal neurologic deficit.] Alert oriented 3. Psychiatric: Normal mood affect and normal mental status examination. Skin: No rashes. - Labs CBC & Chem 7: 01/09/22 04:00 01/09/22 04:00 Labs: Abnormal Lab Results - Last 24 Hours (Table) 01/02/22 01/08/22 01/08/22 Range/Units 09:00 12:47 12:51 WBC (3.8-10.6) k/uL RBC 3.72 L (3.80-5.40) m/uL Hgb (11.4-16.0) gm/dL Hct (34.0-46.0) % Plt Count 93 L D (150-450) k/uL Neutrophils # 9.3 H (1.3-7.7) k/uL Lymphocytes # 0.9 L (1.0-4.8) k/uL PT (9.0-12.0) sec INR (<1.2) APTT (22.0-30.0) sec ABG pH (7.35-7.45) ABG pCO2 (35-45) mmHg ABG pO2 (83-108) mmHg ABG Total CO2 (19-24) mmol/L ABG O2 Saturation (94-97) % Sodium (137-145) mmol/L Chloride (98-107) mmol/L Carbon Dioxide (22-30) mmol/L Glucose (74-99) mg/dL POC Glucose (mg/dL) 107 H (75-99) mg/dL Calcium (8.4-10.2) mg/dL Magnesium (1.6-2.3) mg/dL AST (14-36) U/L Alkaline Phosphatase (38-126) U/L Total Protein (6.3-8.2) g/dL Albumin (3.5-5.0) g/dL Crossmatch See Detail 01/08/22 01/08/22 01/08/22 Range/Units 12:51 12:51 13:20 WBC (3.8-10.6) k/uL RBC (3.80-5.40) m/uL Hgb (11.4-16.0) gm/dL Hct (34.0-46.0) % Plt Count (150-450) k/uL Neutrophils # (1.3-7.7) k/uL Lymphocytes # (1.0-4.8) k/uL PT 15.1 H (9.0-12.0) sec INR 1.5 H (<1.2) APTT 39.7 H (22.0-30.0) sec ABG pH 7.29 L (7.35-7.45) ABG pCO2 48 H (35-45) mmHg ABG pO2 35 L* (83-108) mmHg ABG Total CO2 25 H (19-24) mmol/L ABG O2 Saturation 63.7 L (94-97) % Sodium (137-145) mmol/L Chloride 114 H (98-107) mmol/L Carbon Dioxide 19 L (22-30) mmol/L Glucose 104 H (74-99) mg/dL POC Glucose (mg/dL) (75-99) mg/dL Calcium 8.0 L (8.4-10.2) mg/dL Magnesium 4.0 H (1.6-2.3) mg/dL AST 83 H (14-36) U/L Alkaline Phosphatase 37 L (38-126) U/L Total Protein 4.3 L (6.3-8.2) g/dL Albumin 2.4 L (3.5-5.0) g/dL Crossmatch 01/08/22 01/08/22 01/08/22 Range/Units 13:24 14:08 15:00 WBC 13.5 H (3.8-10.6) k/uL RBC (3.80-5.40) m/uL Hgb (11.4-16.0) gm/dL Hct (34.0-46.0) % Plt Count 110 L (150-450) k/uL Neutrophils # 11.6 H (1.3-7.7) k/uL Lymphocytes # (1.0-4.8) k/uL PT (9.0-12.0) sec INR (<1.2) APTT (22.0-30.0) sec ABG pH 7.34 L (7.35-7.45) ABG pCO2 (35-45) mmHg ABG pO2 >400 H (83-108) mmHg ABG Total CO2 (19-24) mmol/L ABG O2 Saturation 99.6 H (94-97) % Sodium (137-145) mmol/L Chloride (98-107) mmol/L Carbon Dioxide (22-30) mmol/L Glucose (74-99) mg/dL POC Glucose (mg/dL) 158 H (75-99) mg/dL Calcium (8.4-10.2) mg/dL Magnesium (1.6-2.3) mg/dL AST (14-36) U/L Alkaline Phosphatase (38-126) U/L Total Protein (6.3-8.2) g/dL Albumin (3.5-5.0) g/dL Crossmatch 01/08/22 01/08/22 01/08/22 Range/Units 15:10 16:10 17:12 WBC (3.8-10.6) k/uL RBC (3.80-5.40) m/uL Hgb (11.4-16.0) gm/dL Hct (34.0-46.0) % Plt Count (150-450) k/uL Neutrophils # (1.3-7.7) k/uL Lymphocytes # (1.0-4.8) k/uL PT (9.0-12.0) sec INR (<1.2) APTT (22.0-30.0) sec ABG pH (7.35-7.45) ABG pCO2 (35-45) mmHg ABG pO2 (83-108) mmHg ABG Total CO2 (19-24) mmol/L ABG O2 Saturation (94-97) % Sodium (137-145) mmol/L Chloride (98-107) mmol/L Carbon Dioxide (22-30) mmol/L Glucose (74-99) mg/dL POC Glucose (mg/dL) 153 H 160 H 144 H (75-99) mg/dL Calcium (8.4-10.2) mg/dL Magnesium (1.6-2.3) mg/dL AST (14-36) U/L Alkaline Phosphatase (38-126) U/L Total Protein (6.3-8.2) g/dL Albumin (3.5-5.0) g/dL Crossmatch 01/08/22 01/08/22 01/08/22 Range/Units 18:02 18:50 18:56 WBC (3.8-10.6) k/uL RBC 3.06 L (3.80-5.40) m/uL Hgb 10.1 L D (11.4-16.0) gm/dL Hct 30.3 L (34.0-46.0) % Plt Count 104 L (150-450) k/uL Neutrophils # 9.1 H (1.3-7.7) k/uL Lymphocytes # 0.7 L (1.0-4.8) k/uL PT (9.0-12.0) sec INR (<1.2) APTT (22.0-30.0) sec ABG pH (7.35-7.45) ABG pCO2 (35-45) mmHg ABG pO2 (83-108) mmHg ABG Total CO2 (19-24) mmol/L ABG O2 Saturation (94-97) % Sodium (137-145) mmol/L Chloride 111 H (98-107) mmol/L Carbon Dioxide (22-30) mmol/L Glucose 107 H (74-99) mg/dL POC Glucose (mg/dL) 126 H (75-99) mg/dL Calcium 7.5 L (8.4-10.2) mg/dL Magnesium (1.6-2.3) mg/dL AST (14-36) U/L Alkaline Phosphatase (38-126) U/L Total Protein (6.3-8.2) g/dL Albumin (3.5-5.0) g/dL Crossmatch 01/08/22 01/08/22 01/08/22 Range/Units 19:36 20:55 21:57 WBC (3.8-10.6) k/uL RBC (3.80-5.40) m/uL Hgb (11.4-16.0) gm/dL Hct (34.0-46.0) % Plt Count (150-450) k/uL Neutrophils # (1.3-7.7) k/uL Lymphocytes # (1.0-4.8) k/uL PT (9.0-12.0) sec INR (<1.2) APTT (22.0-30.0) sec ABG pH (7.35-7.45) ABG pCO2 (35-45) mmHg ABG pO2 (83-108) mmHg ABG Total CO2 (19-24) mmol/L ABG O2 Saturation (94-97) % Sodium (137-145) mmol/L Chloride (98-107) mmol/L Carbon Dioxide (22-30) mmol/L Glucose (74-99) mg/dL POC Glucose (mg/dL) 101 H 135 H 130 H (75-99) mg/dL Calcium (8.4-10.2) mg/dL Magnesium (1.6-2.3) mg/dL AST (14-36) U/L Alkaline Phosphatase (38-126) U/L Total Protein (6.3-8.2) g/dL Albumin (3.5-5.0) g/dL Crossmatch 01/08/22 01/09/22 01/09/22 Range/Units 22:57 00:59 01:55 WBC (3.8-10.6) k/uL RBC (3.80-5.40) m/uL Hgb (11.4-16.0) gm/dL Hct (34.0-46.0) % Plt Count (150-450) k/uL Neutrophils # (1.3-7.7) k/uL Lymphocytes # (1.0-4.8) k/uL PT (9.0-12.0) sec INR (<1.2) APTT (22.0-30.0) sec ABG pH (7.35-7.45) ABG pCO2 (35-45) mmHg ABG pO2 (83-108) mmHg ABG Total CO2 (19-24) mmol/L ABG O2 Saturation (94-97) % Sodium (137-145) mmol/L Chloride (98-107) mmol/L Carbon Dioxide (22-30) mmol/L Glucose (74-99) mg/dL POC Glucose (mg/dL) 122 H 115 H 131 H (75-99) mg/dL Calcium (8.4-10.2) mg/dL Magnesium (1.6-2.3) mg/dL AST (14-36) U/L Alkaline Phosphatase (38-126) U/L Total Protein (6.3-8.2) g/dL Albumin (3.5-5.0) g/dL Crossmatch 01/09/22 01/09/22 01/09/22 Range/Units 03:00 04:00 04:00 WBC (3.8-10.6) k/uL RBC 2.46 L (3.80-5.40) m/uL Hgb 7.9 L D (11.4-16.0) gm/dL Hct 23.9 L (34.0-46.0) % Plt Count 95 L (150-450) k/uL Neutrophils # (1.3-7.7) k/uL Lymphocytes # 0.8 L (1.0-4.8) k/uL PT (9.0-12.0) sec INR (<1.2) APTT (22.0-30.0) sec ABG pH (7.35-7.45) ABG pCO2 (35-45) mmHg ABG pO2 (83-108) mmHg ABG Total CO2 (19-24) mmol/L ABG O2 Saturation (94-97) % Sodium 135 L (137-145) mmol/L Chloride (98-107) mmol/L Carbon Dioxide (22-30) mmol/L Glucose 103 H (74-99) mg/dL POC Glucose (mg/dL) 126 H (75-99) mg/dL Calcium 7.7 L (8.4-10.2) mg/dL Magnesium 2.7 H (1.6-2.3) mg/dL AST 90 H (14-36) U/L Alkaline Phosphatase 35 L (38-126) U/L Total Protein 4.3 L (6.3-8.2) g/dL Albumin 2.6 L (3.5-5.0) g/dL Crossmatch 01/09/22 01/09/22 01/09/22 Range/Units 04:02 05:01 06:46 WBC (3.8-10.6) k/uL RBC (3.80-5.40) m/uL Hgb (11.4-16.0) gm/dL Hct (34.0-46.0) % Plt Count (150-450) k/uL Neutrophils # (1.3-7.7) k/uL Lymphocytes # (1.0-4.8) k/uL PT (9.0-12.0) sec INR (<1.2) APTT (22.0-30.0) sec ABG pH (7.35-7.45) ABG pCO2 (35-45) mmHg ABG pO2 (83-108) mmHg ABG Total CO2 (19-24) mmol/L ABG O2 Saturation (94-97) % Sodium (137-145) mmol/L Chloride (98-107) mmol/L Carbon Dioxide (22-30) mmol/L Glucose (74-99) mg/dL POC Glucose (mg/dL) 111 H 126 H 116 H (75-99) mg/dL Calcium (8.4-10.2) mg/dL Magnesium (1.6-2.3) mg/dL AST (14-36) U/L Alkaline Phosphatase (38-126) U/L Total Protein (6.3-8.2) g/dL Albumin (3.5-5.0) g/dL Crossmatch 01/09/22 01/09/22 01/09/22 Range/Units 08:14 09:02 10:05 WBC (3.8-10.6) k/uL RBC (3.80-5.40) m/uL Hgb (11.4-16.0) gm/dL Hct (34.0-46.0) % Plt Count (150-450) k/uL Neutrophils # (1.3-7.7) k/uL Lymphocytes # (1.0-4.8) k/uL PT (9.0-12.0) sec INR (<1.2) APTT (22.0-30.0) sec ABG pH (7.35-7.45) ABG pCO2 (35-45) mmHg ABG pO2 (83-108) mmHg ABG Total CO2 (19-24) mmol/L ABG O2 Saturation (94-97) % Sodium (137-145) mmol/L Chloride (98-107) mmol/L Carbon Dioxide (22-30) mmol/L Glucose (74-99) mg/dL POC Glucose (mg/dL) 129 H 118 H 133 H (75-99) mg/dL Calcium (8.4-10.2) mg/dL Magnesium (1.6-2.3) mg/dL AST (14-36) U/L Alkaline Phosphatase (38-126) U/L Total Protein (6.3-8.2) g/dL Albumin (3.5-5.0) g/dL Crossmatch Assessment and Plan Assessment: Impression: History of severe mitral regurgitation, status post MVR postoperative day #1 Chronic diastolic congestive heart failure Obstructive sleep apnea syndrome, not compliant with CPAP. Lifetime nonsmoker Recommendation: Continue incentive spirometry Continue cardiac meds including aspirin statins and Plavix and beta blockers continue amiodarone prophylaxis. Early ambulation. GI and DVT prophylaxis. Continue insulin accordingly. Discontinued on necessary catheters and lines We'll continue to follow. Time with Patient: Less than 30
[2022-01-09 11:11] LABS: Glucose,Whole Blood 101 mg/dL (75-99)
[2022-01-09 11:31] VITALS: BMI 26.8
[2022-01-09 12:09] LABS: Glucose,Whole Blood 161 mg/dL (75-99)
[2022-01-09 13:11] LABS: Glucose,Whole Blood 150 mg/dL (75-99)
[2022-01-09 14:15] LABS: Glucose,Whole Blood 135 mg/dL (75-99)
[2022-01-09 16:53] LABS: Glucose,Whole Blood 121 mg/dL (75-99)
[2022-01-09 18:59] LABS: Glucose,Whole Blood 161 mg/dL (75-99)
[2022-01-09 19:21] LABS: MCH 33.4 pg (25.0-35.0); MCHC 33.7 g/dL (31.0-37.0); MCV 99.2 fL (80.0-100.0); Mean Platelet Volume 9.1; RDW 13.7 % (11.5-15.5)
[2022-01-09 19:24] LABS: HCT 16.9 % (34.0-46.0); HGB 5.7 gm/dL (11.4-16.0); Platelet Count 81 k/uL (150-450)
[2022-01-09] MEDS: SENNOSIDES-DOCUSATE SODIUM 1 EACH TAB PO SCH (20:26)
[2022-01-09 21:01] LABS: Glucose,Whole Blood 119 mg/dL (75-99)
[2022-01-09 22:15] LABS: Glucose,Whole Blood 137 mg/dL (75-99)
[2022-01-10 00:16] LABS: Glucose,Whole Blood 131 mg/dL (75-99)
[2022-01-10 00:45] LABS: Basophils % (A) 0 %; Eosinophils % (A) 0 %; HCT 24.8 % (34.0-46.0); Lymphocytes # (A) 1.3 k/uL (1.0-4.8); Lymphocytes % (A) 15 %; MCH 32.3 pg (25.0-35.0); MCHC 33.7 g/dL (31.0-37.0); MCV 95.8 fL (80.0-100.0); Mean Platelet Volume 9.6; Monocytes # (A) 0.6 k/uL (0-1.0); Monocytes % (A) 7 %; Neutrophils # (A) 6.7 k/uL (1.3-7.7); Neutrophils % (A) 76 %; RBC 2.59 m/uL (3.80-5.40); RDW 13.7 % (11.5-15.5); WBC 8.8 k/uL (3.8-10.6)
[2022-01-10 00:48] LABS: HGB 8.4 gm/dL (11.4-16.0); Platelet Count 81 k/uL (150-450)
[2022-01-10] MEDS: HEPARIN SODIUM,PORCINE/PF 5,000 UNIT/0.5 ML SYRINGE SQ SCH ×4 (00:57→23:56)
[2022-01-10] MEDS ORDERED: FUROSEMIDE 10 MG/ML 2 ML VIAL IV ONE ×2 (01:00→09:00)
[2022-01-10 01:55] LABS: Glucose,Whole Blood 121 mg/dL (75-99)
[2022-01-10 04:26] LABS: Glucose,Whole Blood 119 mg/dL (75-99)
[2022-01-10 04:53] LABS: Basophils % (A) 0 %; Eosinophils % (A) 0 %; HCT 25.3 % (34.0-46.0); HGB 8.6 gm/dL (11.4-16.0); Lymphocytes # (A) 1.5 k/uL (1.0-4.8); Lymphocytes % (A) 15 %; MCH 32.6 pg (25.0-35.0); MCHC 34.1 g/dL (31.0-37.0); MCV 95.6 fL (80.0-100.0); Mean Platelet Volume 9.6; Monocytes # (A) 0.6 k/uL (0-1.0); Monocytes % (A) 6 %; Neutrophils # (A) 7.8 k/uL (1.3-7.7); Neutrophils % (A) 78 %; RBC 2.64 m/uL (3.80-5.40); RDW 14.4 % (11.5-15.5); WBC 10.1 k/uL (3.8-10.6)
[2022-01-10 04:56] LABS: Platelet Count 87 k/uL (150-450)
[2022-01-10 05:29] LABS: Albumin 3.1 g/dL (3.5-5.0); Calcium 8.5 mg/dL (8.4-10.2); Potassium 4.3 mmol/L (3.5-5.1); Total Bilirubin 0.9 mg/dL (0.2-1.3); Total Protein 4.8 g/dL (6.3-8.2)
[2022-01-10 06:26] LABS: Glucose,Whole Blood 128 mg/dL (75-99)
--- NOTE | 2022-01-10 07:29 | XR ---
EXAMINATION TYPE: XR chest 1V portable DATE OF EXAM: 01/10/2022 COMPARISON: 01/09/2022 HISTORY: SOB, Follow Up FINDINGS: [place]-Rudy catheter has been removed. Right IJ sheath is in place. Left-sided chest tube is unchanged in position as is mediastinal drain. Tiny left apical pneumothorax suspected although, the field-of-v iew. No change in bibasilar opacities. Stable appearance of the cardio-mediastinal structures at this time. Pleural effusion unchanged. IMPRESSION: 1. Stable portable chest. Clinical correlation and follow up until resolution is recommended.
[2022-01-10 08:01] LABS: Glucose,Whole Blood 106 mg/dL (75-99)
[2022-01-10] MEDS: IPRATROPIUM-ALBUTEROL 3 ML NEB INHALATION SCH ×4 (08:07→20:03)
--- NOTE | 2022-01-10 09:00 | PN ---
PROGRESS NOTE Mrs. Melendez underwent mitral valve repair. She dropped her hemoglobin down, received packed RBCs. Hemoglobin is 8.7. She is in sinus rhythm. Pacemaker has not been used. Rate is about 74. Blood pressure is good. She is resting comfortably and doing reasonably well on incentive spirometry. JVD is not evident. S1, S2 with a pericardial rub audible. Lungs reveal bilateral air entry. Abdomen is soft. Lower extremities reveal diminished pulses. Central nervous system: No focal deficits. IMPRESSION: 1. Status post mitral valve repair with some anemia requiring blood. 2. History of COVID infection in the past. RECOMMENDATIONS: I recommend that we continue the current supportive care with some fluids and gradually increase activity. Pursue incentive spirometry and pulmonary toilet. Patient is making reasonable progress. Will continue to follow. ANNA / RAHEEMN: [id number] /
--- NOTE | 2022-01-10 09:17 | P.PN ---
Subjective Progress Note Date: 01/10/22 Principal diagnosis: Severe mitral valve regurgitation. Past medical history significant for chronic diastolic heart failure, lifetime nonsmoker with mild lung disease, remote his tory of pneumonia, obstructive sleep apnea without CPAP use, arthritis. Vaccinated and boosted against Covid-19 POD #2 mitral valve repair with #26 mm physio-2 ring, ligation of the left atrial appendage, epi-aortic ultrasound, and intraoperative transesophageal echocardiogram performed by anesthesia. Postoperative acute blood loss anemia and thrombocytopenia, expected given hemodilution and cardiopulmonary bypass pump. The patient was seen in follow-up today 01/10/2022 at her bedside in the intensive care unit. Currently she is sitting up to the bedside chair, is awake, alert, oriented 3 and is in no acute apparent distress. Oxygen saturations are 96% on 2 L nasal cannula and she is achieving 500 mL on her incentive spirometry with much encouragement. She remains hemodynamically s table and is currently on no inotropic pressor support. Yesterday her hemoglobin was 5.7 and hematocrit 16.9 and she was transfused with 2 units of packed red blood cells followed by Lasix 20 mg IV 1. Bedside telemetry showing normal sinus rhythm heart rate 74 BPM. She remains on amiodarone 200 mg by mouth daily for atrial fibrillation prophylaxis. Right IJ Cordis remains in place with continuous CVP monitoring, current CVP pressure 10 mmHg. Mediastinal, left and right pleural chest tubes remain in place to low continuous wall suction -20 cm H2O. No air leak is present. Draining thin s erosanguineous drainage. Mediastinal and left pleural chest tube drained 110 mL output in the last 8 hours and 390 mL output in the last 24 hours. Right pleural chest tube drained 80 mL output in the last 8 hours and 550 mL output in the last 24 hours. She reports she has been up ambulating in the intensive care unit hallway with standby assistance from nursing and therapy staff. Objective - Vital Signs Vital signs: Vital Signs Temp 98.6 F 01/10/22 04:00 Pulse 74 01/10/22 07:00 Resp 20 01/10/22 07:00 BP 128/61 01/10/22 07:00 Pulse Ox 97 01/10/22 07:00 Intake & Output 01/09/22 01/10/22 01/10/22 18:59 06:59 18:59 Intake Total 2138.871 1385.255 36 Output Total 893 906 35 Balance 1245.871 479.255 1 Weight 70.9 kg 74.9 kg Intake: IV 1364 432 36 0.9 Sodium Chloride 84 72 6 Pressure Bag Albumin Human 5% 250 ml 750 In Empty Bag 1 bag @ 250 mls/hr IVPB Q1HR PRN Rx#: [id number] CARDIAC OUTPUT 0.9 Sodium 40 Chloride Lactated Ringers 1,000 ml 440 360 30 @ 20 mls/hr IV .Q24H [facility] Rx#:[id number] ceFAZolin 2 gm In Sodium 50 Chloride 0.9% 50 ml @ 100 mls/hr IVPB Q8HR [facility] Rx# :[id number] Intake, IV Titration 24.871 23.255 Amount Insulin Regular 100 unit 24.871 23.255 In Sodium Chloride 0.9% 100 ml @ Per Protocol IV .Q0M [facility] Rx#:[id number] Oral 750 Blood Product 930 Rc As-1 Unit 310 [id number] Rc Pheresis 2 As3 Unit 0 [id number] Output: Chest Tube Drainage 660 310 Chest Tube Bilateral 300 170 Mediastinal Chest Tube Right Anterior 360 140 Chest Urine 233 596 35 Other: Voiding Method Indwelling Catheter Indwelling Catheter ABP, PAP, CO, CI - Last Documented Arterial Blood Pressure 136/54 Pulmonary Artery Pressure 27/10 Cardiac Output 4.0 Cardiac Index 2.4 - Exam CONSTITUTIONAL: Sitting up to the bedside chair in the intensive care unit, ap pears comfortable, cooperative, no apparent acute distress. HEENT: Neck is supple, no JVD, no lymphadenopathy. Right IJ Cordis and [place]- Rudy catheter in place and functioning. RESPIRATORY: Lungs sounds essentially clear throughout, diminished to her bilateral bases. Respirations are symmetrical and nonlabored. Currently on 2 L nasal cannula with oxygen saturations 96%. Able to achieve 500 mL on her incentive spirometry. Strong cough. CARDIOVASCULAR: Regular rhythm and rate. S1 and S2 present, negative for S3, gallop or murmur. Sternum is stable. Palpable peripheral pulses bilaterally. No calf pain or tenderness noted. Heart hugger in place with patient demonstrating appropriate use. Knee-high BRODY hose and sequential compression devices in place to her bilateral lower extremities. GASTROINTESTINAL: Abdomen soft, nontender, nondistended. Active bowel sounds present 4 quadrants. Tolerating diet. Passing flatus. No guarding or rigidity. GENITOURINARY: Isaac present draining clear, yellow urine. Output 530 mL in the last 8 hours. INTEGUMENTARY: Skin is warm and dry with no evidence of clubbing or cyanosis. Midline sternal incision clean dry and well approximated, covered with dry intact dressing. NEUROLOGIC: Cranial nerves II through XII intact. No focal deficits. MUSKULOSKELETAL: Able to move all extremities, strength equal bilaterally, generalized weakness. PSYCHIATRIC: Alert and oriented to person place and time, appropriate affect, intact judgment and insight. INVASIVE LINES AND TUBES: Mediastinal, left and right pleural chest tubes present and connected to low continuous wall suction, no air leaks present. Mediastinal/left pleural chest tubes with 110 mL of thin serosanguineous drainage overnight, 390 mL output in the last 24 hours. Right pleural chest tube with 80 mL of thin serosanguineous drainage overnight, 550 mL output in the last 24 hours. Atrial and ventricular epicardial pacemaker wires present, connected to generator, VVI backup rate 50 bpm. Right internal jugular Cordis, right radial arterial line present. Current CVP 10 mmHg. - Allied health notes Allied health notes reviewed: nursing - Labs CBC & Chem 7: 01/10/22 04:25 01/10/22 04:25 Labs: Abnormal Lab Results - Last 24 Hours (Table) 01/02/22 01/09/22 01/09/22 Range/Units 09:00 08:14 09:02 RBC (3.80-5.40) m/uL Hgb (11.4-16.0) gm/dL Hct (34.0-46.0) % Plt Count (150-450) k/uL Neutrophils # (1.3-7.7) k/uL Sodium (137-145) mmol/L BUN (7-17) mg/dL Glucose (74-99) mg/dL POC Glucose (mg/dL) 129 H 118 H (75-99) mg/dL AST (14-36) U/L Total Protein (6.3-8.2) g/dL Albumin (3.5-5.0) g/dL Crossmatch See Detail 01/09/22 01/09/22 01/09/22 Range/Units 10:05 11:10 12:08 RBC (3.80-5.40) m/uL Hgb (11.4-16.0) gm/dL Hct (34.0-46.0) % Plt Count (150-450) k/uL Neutrophils # (1.3-7.7) k/uL Sodium (137-145) mmol/L BUN (7-17) mg/dL Glucose (74-99) mg/dL POC Glucose (mg/dL) 133 H 101 H 161 H (75-99) mg/dL AST (14-36) U/L Total Protein (6.3-8.2) g/dL Albumin (3.5-5.0) g/dL Crossmatch 01/09/22 01/09/22 01/09/22 Range/Units 13:09 14:13 16:52 RBC (3.80-5.40) m/uL Hgb (11.4-16.0) gm/dL Hct (34.0-46.0) % Plt Count (150-450) k/uL Neutrophils # (1.3-7.7) k/uL Sodium (137-145) mmol/L BUN (7-17) mg/dL Glucose (74-99) mg/dL POC Glucose (mg/dL) 150 H 135 H 121 H (75-99) mg/dL AST (14-36) U/L Total Protein (6.3-8.2) g/dL Albumin (3.5-5.0) g/dL Crossmatch 01/09/22 01/09/22 01/09/22 Range/Units 18:57 19:00 21:00 RBC 1.70 L (3.80-5.40) m/uL Hgb 5.7 L* D (11.4-16.0) gm/dL Hct 16.9 L* (34.0-46.0) % Plt Count 81 L (150-450) k/uL Neutrophils # (1.3-7.7) k/uL Sodium (137-145) mmol/L BUN (7-17) mg/dL Glucose (74-99) mg/dL POC Glucose (mg/dL) 161 H 119 H (75-99) mg/dL AST (14-36) U/L Total Protein (6.3-8.2) g/dL Albumin (3.5-5.0) g/dL Crossmatch 01/09/22 01/10/22 01/10/22 Range/Units 22:13 00:14 00:20 RBC 2.59 L (3.80-5.40) m/uL Hgb 8.4 L D (11.4-16.0) gm/dL Hct 24.8 L (34.0-46.0) % Plt Count 81 L (150-450) k/uL Neutrophils # (1.3-7.7) k/uL Sodium (137-145) mmol/L BUN (7-17) mg/dL Glucose (74-99) mg/dL POC Glucose (mg/dL) 137 H 131 H (75-99) mg/dL AST (14-36) U/L Total Protein (6.3-8.2) g/dL Albumin (3.5-5.0) g/dL Crossmatch 01/10/22 01/10/22 01/10/22 Range/Units 01:53 04:24 04:25 RBC 2.64 L (3.80-5.40) m/uL Hgb 8.6 L (11.4-16.0) gm/dL Hct 25.3 L (34.0-46.0) % Plt Count 87 L (150-450) k/uL Neutrophils # 7.8 H (1.3-7.7) k/uL Sodium (137-145) mmol/L BUN (7-17) mg/dL Glucose (74-99) mg/dL POC Glucose (mg/dL) 121 H 119 H (75-99) mg/dL AST (14-36) U/L Total Protein (6.3-8.2) g/dL Albumin (3.5-5.0) g/dL Crossmatch 01/10/22 01/10/22 01/10/22 Range/Units 04:25 06:14 08:00 RBC (3.80-5.40) m/uL Hgb (11.4-16.0) gm/dL Hct (34.0-46.0) % Plt Count (150-450) k/uL Neutrophils # (1.3-7.7) k/uL Sodium 131 L (137-145) mmol/L BUN 26 H (7-17) mg/dL Glucose 111 H (74-99) mg/dL POC Glucose (mg/dL) 128 H 106 H (75-99) mg/dL AST 82 H (14-36) U/L Total Protein 4.8 L (6.3-8.2) g/dL Albumin 3.1 L (3.5-5.0) g/dL Crossmatch - Imaging and Cardiology Chest x-ray: report reviewed, image reviewed Assessment and Plan Assessment: 1. Severe mitral valve regurgitation, status post mitral valve repair 2. History of chronic diastolic heart failure 3. Lifetime nonsmoker with mild lung disease, preoperative FEV1 68% of predicted 4. Remote history of pneumonia 5. Obstructive sleep apnea without CPAP use 6. Arthritis 7. Vaccinated and boosted against Covid-19 8. Postoperative acute blood loss anemia and thrombocytopenia, expected Plan: 1. Continue aspirin, statin, and Plavix. Will start metoprolol tartrate 12.5 mg by mouth twice a day. We will increase beta oli as tolerated. 2. Continue amiodarone 200 mg by mouth daily for A. fib prophylaxis. 3. Wean O2 as tolerated. Encourage incentive spirometry 10 times every hour while awake. Bronchodilators per pulmonology. 4. Increase activity, ambulate as tolerated. PT/OT/cardiac rehab following. 5. GI/DVT prophylaxis. 6. Pain control with current medication regimen. 7. Insulin management per primary care service. Patient is not diabetic, preoperative hemoglobin A1c 5.2%, however patient does need tight blood sugar control to prevent infection and promote sternal union. 8. Will monitor daily labs and chest x-rays. Electrolyte replacement per protocol. 9. Continue right IJ Cordis to continuous CVP monitoring. 10. Continue mediastinal/right pleural chest tube for another 24 hours 11. Continue Isaac catheter for another 24 hours for strict accurate intake and output. Daily weights 12. Lasix 20 mg IV 1 now. 13. More recommendations to follow based on patient's clinical course. Time with Patient: Greater than 30
[2022-01-10] MEDS: MULTIVITAMINS, THERA 1 EACH TAB PO SCH (09:24)
[2022-01-10] MEDS: ASPIRIN 325 MG TAB PO SCH (09:24)
[2022-01-10] MEDS: ATORVASTATIN 40 MG TAB PO SCH (09:25)
[2022-01-10] MEDS: AMIODARONE 200 MG TAB PO SCH (09:25)
[2022-01-10] MEDS: CLOPIDOGREL 75 MG TAB PO SCH (09:25)
[2022-01-10] MEDS: PANTOPRAZOLE 40 MG TABLET PO SCH (09:32)
[2022-01-10] MEDS: METOPROLOL TARTRATE 12.5 MG TAB PO SCH ×2 (09:32→21:15)
--- NOTE | 2022-01-10 10:41 | P.PN ---
Subjective Progress Note Date: 01/10/22 This is 71-year-old female patient of Dr. Agee who presented for an elective mitral valve replacement with Dr. Maher on 01/08/2022. Patient has a past medical history of congestive heart failure with dyspnea and was found to have severe mitral valve regurg. Additional medical history includes arthritis and anxiety. Patient is currently on mechanical ventilation postoperatively in the intensive care unit. Patient is currently sedated with propofol. Current vent settings before meals controlled rate of 14, tidal volume 450, FiO2 100% and PEEP of 5. Mediastinal and left-sided Chest tubes in place. Midline dressing is clean dry and intact. Cardiothoracic, critical care and cardiology services are following. Thank you for this consultation we will continue to follow patient closely throughout stay On 01/09/2022 patient was seen and examined in the ICU she is alert and oriented 3 in no apparent stress is extubated yesterday and is tolerating well, vital exam reveals a temperature of 99.5 pulse 80 respiration 12 blood pressure 111/57 pulse ox 92% on 2 L nasal cannula, patient is complaining of pain at the surgical site otherwise she denies any complaints. Patient was resumed on i nsulin and her glucose level is well-controlled at this time, will continue to follow closely. On 01/10/2022 patient is alert and oriented 3. Patient remains extubated resting comfortably in chair in intensive care unit. Patient reports some discomfort. Patient will be transitioned to sliding scale coverage for insulin. Heart rate 74, respiratory rate 20, blood pressure 120/61, oxygen saturation 97% on 2 L. Patient denies any nausea vomiting or diarrhea. Patient denies any urinary burning or frequency Objective - Vital Signs Vital signs: Vital Signs Temp 98.6 F 01/10/22 04:00 Pulse 72 01/10/22 08:18 Resp 20 01/10/22 07:00 BP 128/61 01/10/22 07:00 Pulse Ox 97 01/10/22 07:00 Intake & Output 01/09/22 01/10/22 01/10/22 18:59 06:59 18:59 Intake Total 2138.871 1385.255 98 Output Total 893 906 195 Balance 1245.871 479.255 -97 Weight 70.9 kg 74.9 kg Intake: IV 1364 432 98 0.9 Sodium Chloride 84 72 18 Pressure Bag Albumin Human 5% 250 ml 750 In Empty Bag 1 bag @ 250 mls/hr IVPB Q1HR PRN Rx#: [id number] CARDIAC OUTPUT 0.9 Sodium 40 Chloride Lactated Ringers 1,000 ml 440 360 80 @ 20 mls/hr IV .Q24H [facility] Rx#:[id number] ceFAZolin 2 gm In Sodium 50 Chloride 0.9% 50 ml @ 100 mls/hr IVPB Q8HR [facility] Rx# :[id number] Intake, IV Titration 24.871 23.255 Amount Insulin Regular 100 unit 24.871 23.255 In Sodium Chloride 0.9% 100 ml @ Per Protocol IV .Q0M [facility] Rx#:[id number] Oral 750 Blood Product 930 Rc As-1 Unit 310 [id number] Rc Pheresis 2 As3 Unit 0 [id number] Output: Chest Tube Drainage 660 310 80 Chest Tube Bilateral 300 170 30 Mediastinal Chest Tube Right Anterior 360 140 50 Chest Urine 233 596 115 Other: Voiding Method Indwelling Catheter Indwelling Catheter ABP, PAP, CO, CI - Last Documented Arterial Blood Pressure 136/54 Pulmonary Artery Pressure 27/10 Cardiac Output 4.0 Cardiac Index 2.4 - Exam Head normocephalic Neck supple Lungs clear to auscultation bilaterally no wheezing or crackles Heart regular rate and rhythm S1-S2, no rub or gallop. Midline dressing clean dry and intact Abdomen is soft nontender nondistended positive bowel sounds no hepatosplenomegaly Extremities no edema Neuro - Labs CBC & Chem 7: 01/10/22 04:25 01/10/22 04:25 Labs: Abnormal Lab Results - Last 24 Hours (Table) 01/02/22 01/09/22 01/09/22 Range/Units 09:00 11:10 12:08 RBC (3.80-5.40) m/uL Hgb (11.4-16.0) gm/dL Hct (34.0-46.0) % Plt Count (150-450) k/uL Neutrophils # (1.3-7.7) k/uL Sodium (137-145) mmol/L BUN (7-17) mg/dL Glucose (74-99) mg/dL POC Glucose (mg/dL) 101 H 161 H (75-99) mg/dL AST (14-36) U/L Total Protein (6.3-8.2) g/dL Albumin (3.5-5.0) g/dL Crossmatch See Detail 01/09/22 01/09/22 01/09/22 Range/Units 13:09 14:13 16:52 RBC (3.80-5.40) m/uL Hgb (11.4-16.0) gm/dL Hct (34.0-46.0) % Plt Count (150-450) k/uL Neutrophils # (1.3-7.7) k/uL Sodium (137-145) mmol/L BUN (7-17) mg/dL Glucose (74-99) mg/dL POC Glucose (mg/dL) 150 H 135 H 121 H (75-99) mg/dL AST (14-36) U/L Total Protein (6.3-8.2) g/dL Albumin (3.5-5.0) g/dL Crossmatch 01/09/22 01/09/22 01/09/22 Range/Units 18:57 19:00 21:00 RBC 1.70 L (3.80-5.40) m/uL Hgb 5.7 L* D (11.4-16.0) gm/dL Hct 16.9 L* (34.0-46.0) % Plt Count 81 L (150-450) k/uL Neutrophils # (1.3-7.7) k/uL Sodium (137-145) mmol/L BUN (7-17) mg/dL Glucose (74-99) mg/dL POC Glucose (mg/dL) 161 H 119 H (75-99) mg/dL AST (14-36) U/L Total Protein (6.3-8.2) g/dL Albumin (3.5-5.0) g/dL Crossmatch 01/09/22 01/10/22 01/10/22 Range/Units 22:13 00:14 00:20 RBC 2.59 L (3.80-5.40) m/uL Hgb 8.4 L D (11.4-16.0) gm/dL Hct 24.8 L (34.0-46.0) % Plt Count 81 L (150-450) k/uL Neutrophils # (1.3-7.7) k/uL Sodium (137-145) mmol/L BUN (7-17) mg/dL Glucose (74-99) mg/dL POC Glucose (mg/dL) 137 H 131 H (75-99) mg/dL AST (14-36) U/L Total Protein (6.3-8.2) g/dL Albumin (3.5-5.0) g/dL Crossmatch 01/10/22 01/10/22 01/10/22 Range/Units 01:53 04:24 04:25 RBC 2.64 L (3.80-5.40) m/uL Hgb 8.6 L (11.4-16.0) gm/dL Hct 25.3 L (34.0-46.0) % Plt Count 87 L (150-450) k/uL Neutrophils # 7.8 H (1.3-7.7) k/uL Sodium (137-145) mmol/L BUN (7-17) mg/dL Glucose (74-99) mg/dL POC Glucose (mg/dL) 121 H 119 H (75-99) mg/dL AST (14-36) U/L Total Protein (6.3-8.2) g/dL Albumin (3.5-5.0) g/dL Crossmatch 01/10/22 01/10/22 01/10/22 Range/Units 04:25 06:14 08:00 RBC (3.80-5.40) m/uL Hgb (11.4-16.0) gm/dL Hct (34.0-46.0) % Plt Count (150-450) k/uL Neutrophils # (1.3-7.7) k/uL Sodium 131 L (137-145) mmol/L BUN 26 H (7-17) mg/dL Glucose 111 H (74-99) mg/dL POC Glucose (mg/dL) 128 H 106 H (75-99) mg/dL AST 82 H (14-36) U/L Total Protein 4.8 L (6.3-8.2) g/dL Albumin 3.1 L (3.5-5.0) g/dL Crossmatch Assessment and Plan Assessment: 1. Status post mitral valve replacement on 01/08/[address] Maher. 2. History of severe mitral valve regurg with symptomatic dyspnea 3. History of arthritis 4. History of anxiety Patient remains in the intensive care unit Patient has been extubated Blood sugars well controlled at this time Thank you for this consultation we'll continue to follow patient closely throughout stay
[2022-01-10 11:54] LABS: Glucose,Whole Blood 126 mg/dL (75-99)
[2022-01-10] MEDS: INSULIN ASPART (NovoLOG) 100 UNIT/ML VIAL SQ SCH ×3 (12:07→21:12)
[2022-01-10] MEDS: lisinopriL 5 MG TAB PO SCH (12:15)
--- NOTE | 2022-01-10 14:24 | P.PN ---
Subjective Progress Note Date: 01/10/22 On today's evaluation of 01/10/2022, I'm seeing the patient for a follow-up. The patient is postop day #2. The patient is post mitral valve repair. Overall, the patient is doing well. The patient postop developed a hemoglobin of 5.7 and the patient got transfused a total of 2 units of packed RBC. On today's evaluation, the patient continues to have the mediastinal left and right pleural chest tube. Note that the chest tube on the right has been on 142 over the past 12 hours and the left than the mediastinal chest tubes colectomy and they now 170 mL. The patient is alert and awake. The patient is not in acute respiratory distress. The patient on 2 L of oxygen by nasal cannula and a pulse ox is around 96%. The patient also received a dose of Lasix 20 mg IV push 1. He is ambulating. Vertical site is dry clean and intact. The pain is under good control. His comorbid conditions include diastolic heart failure, remote history of pneumonia, obstructive sleep apnea, and the patient is fully vaccinated to COVID 19. White cell count of 10.1 hemoglobin of 8.6. BUN is 26 with a creatinine of 0.9. Sodium is at 131. LFTs are within normal limits. Objective - Vital Signs Vital signs: Vital Signs Temp 98.6 F 01/10/22 12:00 Pulse 76 01/10/22 13:00 Resp 28 H 01/10/22 13:00 BP 128/86 01/10/22 13:00 Pulse Ox 99 01/10/22 13:00 Intake & Output 01/09/22 01/10/22 01/10/22 18:59 06:59 18:59 Intake Total 2138.871 1385.255 202 Output Total 893 906 875 Balance 1245.871 479.255 -673 Weight 70.9 kg 74.9 kg Intake: IV 1364 432 202 0.9 Sodium Chloride 84 72 42 Pressure Bag Albumin Human 5% 250 ml 750 In Empty Bag 1 bag @ 250 mls/hr IVPB Q1HR PRN Rx#: [id number] CARDIAC OUTPUT 0.9 Sodium 40 Chloride Lactated Ringers 1,000 ml 440 360 160 @ 20 mls/hr IV .Q24H [facility] Rx#:[id number] ceFAZolin 2 gm In Sodium 50 Chloride 0.9% 50 ml @ 100 mls/hr IVPB Q8HR [facility] Rx# :[id number] Intake, IV Titration 24.871 23.255 Amount Insulin Regular 100 unit 24.871 23.255 In Sodium Chloride 0.9% 100 ml @ Per Protocol IV .Q0M [facility] Rx#:[id number] Oral 750 Blood Product 930 Rc As-1 Unit 310 [id number] Rc Pheresis 2 As3 Unit 0 [id number] Output: Chest Tube Drainage 660 310 260 Chest Tube Bilateral 300 170 110 Mediastinal Chest Tube Right Anterior 360 140 150 Chest Urine 233 596 615 Other: Voiding Method Indwelling Catheter Indwelling Catheter Indwelling Catheter ABP, PAP, CO, CI - Last Documented Arterial Blood Pressure 130/74 Pulmonary Artery Pressure 27/10 Cardiac Output 4.0 Cardiac Index 2.4 - Exam CONSTITUTIONAL: Sitting up to the bedside chair in the intensive care unit, appears comfortable, cooperative, no apparent acute distress. HEENT: Neck is supple, no JVD, no lymphadenopathy. Right IJ Cordis and [place]- Rudy catheter in place and functioning. RESPIRATORY: Lungs sounds essentially clear throughout, diminished to her bilateral bases. Respirations are symmetrical and nonlabored. Currently on 2 L nasal cannula with oxygen saturations 96%. Able to achieve 500 mL on her incentive spirometry. Strong cough. CARDIOVASCULAR: Regular rhythm and rate. S1 and S2 present, negative for S3, gallop or murmur. Sternum is stable. Palpable peripheral pulses bilaterally. No calf pain or tenderness noted. Heart hugger in place with patient demonstrating appropriate use. Knee-high BRODY hose and sequential compression devices in place to her bilateral lower extremities. GASTROINTESTINAL: Abdomen soft, nontender, nondistended. Active bowel sounds present 4 quadrants. Tolerating diet. Passing flatus. No guarding or rigidity. GENITOURINARY: Isaac present draining clear, yellow urine. Output 530 mL in the last 8 hours. INTEGUMENTARY: Skin is warm and dry with no evidence of clubbing or cyanosis. Midline sternal incision clean dry and well approximated, covered with dry intact dressing. NEUROLOGIC: Cranial nerves II through XII intact. No focal deficits. MUSKULOSKELETAL: Able to move all extremities, strength equal bilaterally, generalized weakness. PSYCHIATRIC: Alert and oriented to person place and time, appropriate affect, intact judgment and insight. INVASIVE LINES AND TUBES: Mediastinal, left and right pleural chest tubes pres ent and connected to low continuous wall suction, no air leaks present. Mediastinal/left pleural chest tubes with 110 mL of thin serosanguineous drainage overnight, 390 mL output in the last 24 hours. Right pleural chest tube with 80 mL of thin serosanguineous drainage overnight, 550 mL output in the last 24 hours. Atrial and ventricular epicardial pacemaker wires present, connected to generator, VVI backup rate 50 bpm. Right internal jugular Cordis, right radial arterial line present. Current CVP 10 mmHg. - Labs CBC & Chem 7: 01/10/22 04:25 01/10/22 04:25 Labs: Abnormal Lab Results - Last 24 Hours (Table) 01/02/22 01/09/22 01/09/22 Range/Units 09:00 16:52 18:57 RBC (3.80-5.40) m/uL Hgb (11.4-16.0) gm/dL Hct (34.0-46.0) % Plt Count (150-450) k/uL Neutrophils # (1.3-7.7) k/uL Sodium (137-145) mmol/L BUN (7-17) mg/dL Glucose (74-99) mg/dL POC Glucose (mg/dL) 121 H 161 H (75-99) mg/dL AST (14-36) U/L Total Protein (6.3-8.2) g/dL Albumin (3.5-5.0) g/dL Crossmatch See Detail 01/09/22 01/09/22 01/09/22 Range/Units 19:00 21:00 22:13 RBC 1.70 L (3.80-5.40) m/uL Hgb 5.7 L* D (11.4-16.0) gm/dL Hct 16.9 L* (34.0-46.0) % Plt Count 81 L (150-450) k/uL Neutrophils # (1.3-7.7) k/uL Sodium (137-145) mmol/L BUN (7-17) mg/dL Glucose (74-99) mg/dL POC Glucose (mg/dL) 119 H 137 H (75-99) mg/dL AST (14-36) U/L Total Protein (6.3-8.2) g/dL Albumin (3.5-5.0) g/dL Crossmatch 01/10/22 01/10/22 01/10/22 Range/Units 00:14 00:20 01:53 RBC 2.59 L (3.80-5.40) m/uL Hgb 8.4 L D (11.4-16.0) gm/dL Hct 24.8 L (34.0-46.0) % Plt Count 81 L (150-450) k/uL Neutrophils # (1.3-7.7) k/uL Sodium (137-145) mmol/L BUN (7-17) mg/dL Glucose (74-99) mg/dL POC Glucose (mg/dL) 131 H 121 H (75-99) mg/dL AST (14-36) U/L Total Protein (6.3-8.2) g/dL Albumin (3.5-5.0) g/dL Crossmatch 01/10/22 01/10/22 01/10/22 Range/Units 04:24 04:25 04:25 RBC 2.64 L (3.80-5.40) m/uL Hgb 8.6 L (11.4-16.0) gm/dL Hct 25.3 L (34.0-46.0) % Plt Count 87 L (150-450) k/uL Neutrophils # 7.8 H (1.3-7.7) k/uL Sodium 131 L (137-145) mmol/L BUN 26 H (7-17) mg/dL Glucose 111 H (74-99) mg/dL POC Glucose (mg/dL) 119 H (75-99) mg/dL AST 82 H (14-36) U/L Total Protein 4.8 L (6.3-8.2) g/dL Albumin 3.1 L (3.5-5.0) g/dL Crossmatch 01/10/22 01/10/22 01/10/22 Range/Units 06:14 08:00 11:52 RBC (3.80-5.40) m/uL Hgb (11.4-16.0) gm/dL Hct (34.0-46.0) % Plt Count (150-450) k/uL Neutrophils # (1.3-7.7) k/uL Sodium (137-145) mmol/L BUN (7-17) mg/dL Glucose (74-99) mg/dL POC Glucose (mg/dL) 128 H 106 H 126 H (75-99) mg/dL AST (14-36) U/L Total Protein (6.3-8.2) g/dL Albumin (3.5-5.0) g/dL Crossmatch Assessment and Plan Plan: History of severe mitral regurgitation, status post MVR postoperative day #2 Post thoracotomy. The patient continues to have drainage from his chest tubes, and the patient continues to have a right pleural, mediastinal left pleural chest tube. Output has been noted. Chest x-ray was noted. Note this of the pneumothorax. No evidence of any air leak. Chronic diastolic congestive heart failure Obstructive sleep apnea syndrome, not compliant with CPAP. Lifetime nonsmoker Postoperative acute blood loss anemia/thrombocytopenia, expected outcome of surgery and the patient was given a total of 2 units of packed RBC Plan Monitor the output from the chest tubes Continue using incentive spirometer Continue aspirin and Plavix Start the patient on metoprolol 12.5 mg by mouth twice a day Pain is under adequate control. Keep the Isaac catheter in place I give the patient dose of Lasix 20 mg IV push Discontinue the insulin drip and put the patient on sliding scale insulin coverage. May also discontinue the arterial line We'll continue to follow.
[2022-01-10 15:49] LABS: HCT 25.5 % (34.0-46.0); HGB 8.7 gm/dL (11.4-16.0); MCH 32.5 pg (25.0-35.0); MCHC 34.1 g/dL (31.0-37.0); MCV 95.4 fL (80.0-100.0); Mean Platelet Volume 9.2; Platelet Count 100 k/uL (150-450); RBC 2.68 m/uL (3.80-5.40)
[2022-01-10 18:00] LABS: Glucose,Whole Blood 138 mg/dL (75-99)
[2022-01-10] MEDS: LACTATED RINGERS 1,000 ML IV SCH (19:41)
[2022-01-10 21:11] LABS: Glucose,Whole Blood 118 mg/dL (75-99)
[2022-01-10] MEDS: SENNOSIDES-DOCUSATE SODIUM 1 EACH TAB PO SCH (21:15)
[2022-01-10] MEDS: HYDROcodone/APAP 5-325MG 1 EACH TAB PO PRN (23:59)
[2022-01-11 06:13] LABS: Basophils % (A) 0 %; Eosinophils # (A) 0.1 k/uL (0-0.7); Eosinophils % (A) 1 %; HCT 25.6 % (34.0-46.0); HGB 8.6 gm/dL (11.4-16.0); Lymphocytes # (A) 1.3 k/uL (1.0-4.8); Lymphocytes % (A) 12 %; MCH 33.1 pg (25.0-35.0); MCHC 33.7 g/dL (31.0-37.0); MCV 98.3 fL (80.0-100.0); Mean Platelet Volume 8.6; Monocytes # (A) 0.8 k/uL (0-1.0); Monocytes % (A) 8 %; Neutrophils # (A) 8.7 k/uL (1.3-7.7); Neutrophils % (A) 78 %; Platelet Count 114 k/uL (150-450); RDW 13.9 % (11.5-15.5); WBC 11.1 k/uL (3.8-10.6)
[2022-01-11 06:32] LABS: ALT 21 U/L (4-34); AST 59 U/L (14-36); African American GFR (CKD) >90 (>60 ml/min/1.73 sqM); Albumin 2.8 g/dL (3.5-5.0); Alkaline Phosphatase 49 U/L (38-126); Anion Gap 4 mmol/L; Blood Urea Nitrogen 21 mg/dL (7-17); Calcium 7.9 mg/dL (8.4-10.2); Carbon Dioxide 24 mmol/L (22-30); Chloride 102 mmol/L (98-107); Glucose 103 mg/dL (74-99); Non-African American GFR(CKD) 89 (>60 ml/min/1.73 sqM); Potassium 4.1 mmol/L (3.5-5.1); Sodium 130 mmol/L (137-145); Total Bilirubin 0.8 mg/dL (0.2-1.3); Total Protein 4.9 g/dL (6.3-8.2)
[2022-01-11] MEDS: INSULIN ASPART (NovoLOG) 100 UNIT/ML VIAL SQ SCH ×4 (06:50→20:45)
[2022-01-11 06:51] LABS: Glucose,Whole Blood 125 mg/dL (75-99)
[2022-01-11] MEDS: PANTOPRAZOLE 40 MG TABLET PO SCH (06:52)
--- NOTE | 2022-01-11 07:19 | XR ---
EXAMINATION TYPE: XR chest 1V portable DATE OF EXAM: 01/11/2022 COMPARISON: Chest x-ray 01/10/2022 HISTORY: Postop mitral valve replacement TECHNIQUE: Single frontal view of the chest is obtained. FINDINGS: Right jugular central venous sheath, post median sternotomy drain, left-sided chest tube a nd right-sided chest tube are again noted. Patient is post median sternotomy and mitral valve replace ment. No evident pneumothorax. Prominence of interstitium is again noted, the left hemidiaphragm is o bscured, bibasilar increased attenuation is noted, left costophrenic angle is blunted. No sizable pne umothorax. Cardiac mediastinal silhouette is likely stable accounting for differences in technique. IMPRESSION: There may be a component of volume overload, interstitial edema, basilar effusions versu s atelectasis or edema, pneumonia not excluded.
[2022-01-11] MEDS: IPRATROPIUM-ALBUTEROL 3 ML NEB INHALATION SCH ×4 (07:28→19:46)
[2022-01-11] MEDS ORDERED: AMIODARONE IN DEXTROSE,ISO-OSM 150 MG/100 ML PLAST..BAG IV ONE (08:26)
[2022-01-11] MEDS ORDERED: DEXTROSE 5% IN WATER 100 ML with AMIODARONE 150 MG IV ONE ×2 (08:30→20:59)
[2022-01-11] MEDS: AMIODARONE 200 MG TAB PO SCH (08:36)
[2022-01-11] MEDS: ASPIRIN 81 MG PO SCH (08:36)
[2022-01-11] MEDS: MULTIVITAMINS, THERA 1 EACH TAB PO SCH (08:36)
[2022-01-11] MEDS: ATORVASTATIN 40 MG TAB PO SCH (08:36)
[2022-01-11] MEDS: guaiFENesin 600 MG TABLET.ER PO SCH ×2 (08:38→20:21)
[2022-01-11] MEDS: METOPROLOL TARTRATE 25 MG TAB PO SCH ×2 (08:38→20:21)
[2022-01-11] MEDS: HEPARIN SODIUM,PORCINE/PF 5,000 UNIT/0.5 ML SYRINGE SQ SCH ×3 (08:39→23:58)
[2022-01-11] MEDS: FUROSEMIDE 10 MG/ML 2 ML VIAL IV SCH ×2 (08:39→20:21)
--- NOTE | 2022-01-11 09:55 | PN ---
PROGRESS NOTE Mrs. Melendez is status post mitral valve repair. She is recovering nicely. She still has her chest tubes in. Urine output is decent. Maintaining sinus rhythm. Vitals are stable. There is no JVD. S1-S2 heard normally. Pericardial rub is less prominent. Lungs reveal improved air entry. Abdomen is soft. Lower extremities reveal diminished pulses. Central nervous system normal. Advised to continue incentive spirometry, pulmonary toilet, same medical regimen, gradually increase activity, and possibly the chest tube will come out today. MMODL / IJN: [id number] /
--- NOTE | 2022-01-11 11:22 | P.PN ---
Subjective Progress Note Date: 01/11/22 This is 71-year-old female patient of Dr. Agee who presented for an elective mitral valve replacement with Dr. Maher on 01/08/2022. Patient has a past medical history of congestive heart failure with dyspnea and was found to have severe mitral valve regurg. Additional medical history includes arthritis and anxiety. Patient is currently on mechanical ventilation postoperatively in the intensive care unit. Patient is currently sedated with propofol. Current vent settings before meals controlled rate of 14, tidal volume 450, FiO2 100% and PEEP of 5. Mediastinal and left-sided Chest tubes in place. Midline dressing is clean dry and intact. Cardiothoracic, critical care and cardiology services are following. Thank you for this consultation we will continue to follow patient closely throughout stay On 01/09/2022 patient was seen and examined in the ICU she is alert and oriented 3 in no apparent stress is extubated yesterday and is tolerating well, vital exam reveals a temperature of 99.5 pulse 80 respiration 12 blood pressure 111/57 pulse ox 92% on 2 L nasal cannula, patient is complaining of pain at the surgical site otherwise she denies any complaints. Patient was resumed on i nsulin and her glucose level is well-controlled at this time, will continue to follow closely. On 01/10/2022 patient is alert and oriented 3. Patient remains extubated resting comfortably in chair in intensive care unit. Patient reports some discomfort. Patient will be transitioned to sliding scale coverage for insulin. Heart rate 74, respiratory rate 20, blood pressure 120/61, oxygen saturation 97% on 2 L. Patient denies any nausea vomiting or diarrhea. Patient denies any urinary burning or frequency 01/11/2022 patient is alert and oriented 3. Patient remains in the intensive care unit. [place] has been removed. Patient has one chest tube. Per nursing staff blood sugars have been well controlled. Current temp 98.1, pulse rate 94 and respiratory rate 12, blood pressure 114/64. Patient satting 99% on 2 L Objective - Vital Signs Vital signs: Vital Signs Temp 98.1 F 01/11/22 08:00 Pulse 77 01/11/22 11:10 Resp 21 01/11/22 11:00 BP 115/70 01/11/22 11:00 Pulse Ox 95 01/11/22 10:00 Intake & Output 01/10/22 01/11/22 01/11/22 18:59 06:59 18:59 Intake Total 823 824 446 Output Total 905 1170 620 Balance -82 -346 -174 Weight 72.3 kg Intake: IV 323 299 46 0.9 Sodium Chloride 54 Pressure Bag CARDIAC OUTPUT 0.9 Sodium 9 39 6 Chloride Lactated Ringers 1,000 ml 260 260 40 @ 20 mls/hr IV .Q24H [facility] Rx#:[id number] Intake, IV Titration 150 Amount Dextrose 5% in Water 100 150 ml @ 618 mls/hr IV .Q10M [facility] with Amiodarone 150 mg Rx#:[id number] Oral 500 525 250 Output: Chest Tube Drainage 290 570 220 Chest Tube Bilateral 120 250 100 Mediastinal Chest Tube Right Anterior 170 320 120 Chest Urine 615 600 400 Other: Voiding Method Indwelling Catheter Bedside Commode Toilet # Voids 0 1 # Bowel Movements 1 ABP, PAP, CO, CI - Last Documented Arterial Blood Pressure 136/51 Pulmonary Artery Pressure 27/10 Cardiac Output 4.0 Cardiac Index 2.4 - Exam Head normocephalic Neck supple Lungs clear to auscultation bilaterally no wheezing or crackles Heart regular rate and rhythm S1-S2, no rub or gallop. Midline dressing clean dry and intact Abdomen is soft nontender nondistended positive bowel sounds no hepatosplenomegaly Extremities no edema Neuro - Labs CBC & Chem 7: 01/11/22 05:35 01/11/22 05:35 Labs: Abnormal Lab Results - Last 24 Hours (Table) 01/02/22 01/10/22 01/10/22 Range/Units 09:00 11:52 16:00 WBC 12.0 H (3.8-10.6) k/uL RBC 2.68 L (3.80-5.40) m/uL Hgb 8.7 L (11.4-16.0) gm/dL Hct 25.5 L (34.0-46.0) % Plt Count 100 L (150-450) k/uL Neutrophils # (1.3-7.7) k/uL Sodium (137-145) mmol/L BUN (7-17) mg/dL Glucose (74-99) mg/dL POC Glucose (mg/dL) 126 H (75-99) mg/dL Calcium (8.4-10.2) mg/dL AST (14-36) U/L Total Protein (6.3-8.2) g/dL Albumin (3.5-5.0) g/dL Crossmatch See Detail 01/10/22 01/10/22 01/11/22 Range/Units 17:58 21:10 05:35 WBC 11.1 H (3.8-10.6) k/uL RBC 2.60 L (3.80-5.40) m/uL Hgb 8.6 L (11.4-16.0) gm/dL Hct 25.6 L (34.0-46.0) % Plt Count 114 L (150-450) k/uL Neutrophils # 8.7 H (1.3-7.7) k/uL Sodium (137-145) mmol/L BUN (7-17) mg/dL Glucose (74-99) mg/dL POC Glucose (mg/dL) 138 H 118 H (75-99) mg/dL Calcium (8.4-10.2) mg/dL AST (14-36) U/L Total Protein (6.3-8.2) g/dL Albumin (3.5-5.0) g/dL Crossmatch 01/11/22 01/11/22 Range/Units 05:35 06:50 WBC (3.8-10.6) k/uL RBC (3.80-5.40) m/uL Hgb (11.4-16.0) gm/dL Hct (34.0-46.0) % Plt Count (150-450) k/uL Neutrophils # (1.3-7.7) k/uL Sodium 130 L (137-145) mmol/L BUN 21 H (7-17) mg/dL Glucose 103 H (74-99) mg/dL POC Glucose (mg/dL) 125 H (75-99) mg/dL Calcium 7.9 L (8.4-10.2) mg/dL AST 59 H (14-36) U/L Total Protein 4.9 L (6.3-8.2) g/dL Albumin 2.8 L (3.5-5.0) g/dL Crossmatch Assessment and Plan Assessment: 1. Status post mitral valve replacement on 01/08/[address] Maher. 2. History of severe mitral valve regurg with symptomatic dyspnea 3. History of arthritis 4. History of anxiety Patient remains in the intensive care unit Patient has been extubated Blood sugars well controlled at this time Thank you for this consultation we'll continue to follow patient closely throughout stay
[2022-01-11 11:39] LABS: Glucose,Whole Blood 101 mg/dL (75-99)
--- NOTE | 2022-01-11 11:43 | P.PN ---
Subjective Progress Note Date: 01/11/22 Principal diagnosis: Severe mitral valve regurgitation. Past medical history significant for chronic diastolic heart failure, lifetime nonsmoker with mild lung disease, remote his tory of pneumonia, obstructive sleep apnea without CPAP use, arthritis. Vaccinated and boosted against Covid-19 POD #3 mitral valve repair with #26 mm physio-2 ring, ligation of the left atrial appendage, epi-aortic ultrasound, and intraoperative transesophageal echocardiogram performed by anesthesia. Postoperative acute blood loss anemia and thrombocytopenia, expected given hemodilution and cardiopulmonary bypass pump. Postoperative paroxysmal atrial fibrillation, a known common occurrence after cardiac surgery. The patient was seen in follow-up today 01/11/2022 at her bedside in the [facility] care unit. Currently she is sitting up to the bedside chair, is awake, alert, oriented 3 and is in no acute apparent distress. She denies any complaints of shortness of breath or pain at this time. The patient reports she feels much improved today from yesterday. Oxygen saturation are 98% on 2 L nasal cannula and she is achieving 750 mL on her incentive spirometry. Bedside telemetry showing normal sinus rhythm heart rate 84 BPM. The patient did have an episode of paroxysmal atrial fibrillation this morning and was given amiodarone 150 mg IV piggyback 1, and now the patient is back in normal sinus rhythm. Mediastinal, left and right pleural chest tubes remain in place to low continuous wall suction at -20 cm H2O. No air leak is present. Draining thin serosanguineous drainage. Mediastinal left pleural chest tubes drained 140 mL output the last 8 hours and 400 mL output in the last 24 hours. Right pleural chest tube drained 150 mL output in the last 8 hours and 490 mL output in the last 24 hours. The patient reports she has been up ambulating in the intensive care unit in all way with minimal assistance with nursing and therapy staff. Right IJ cordis remains in place with current CVP pressure 14 mmHg. Objective - Vital Signs Vital signs: Vital Signs Temp 98.1 F 01/11/22 08:00 Pulse 78 01/11/22 11:25 Resp 21 01/11/22 11:00 BP 115/70 01/11/22 11:00 Pulse Ox 95 01/11/22 10:00 Intake & Output 01/10/22 01/11/22 01/11/22 18:59 06:59 18:59 Intake Total 823 824 446 Output Total 905 1170 620 Balance -82 -346 -174 Weight 72.3 kg Intake: IV 323 299 46 0.9 Sodium Chloride 54 Pressure Bag CARDIAC OUTPUT 0.9 Sodium 9 39 6 Chloride Lactated Ringers 1,000 ml 260 260 40 @ 20 mls/hr IV .Q24H [facility] Rx#:[id number] Intake, IV Titration 150 Amount Dextrose 5% in Water 100 150 ml @ 618 mls/hr IV .Q10M ONE with Amiodarone 150 mg Rx#:[id number] Oral 500 525 250 Output: Chest Tube Drainage 290 570 220 Chest Tube Bilateral 120 250 100 Mediastinal Chest Tube Right Anterior 170 320 120 Chest Urine 615 600 400 Other: Voiding Method Indwelling Catheter Bedside Commode Toilet # Voids 0 1 # Bowel Movements 1 ABP, PAP, CO, CI - Last Documented Arterial Blood Pressure 136/51 Pulmonary Artery Pressure 27/10 Cardiac Output 4.0 Cardiac Index 2.4 - Exam CONSTITUTIONAL: Sitting up to the bedside chair in the intensive care unit, janine ears comfortable, cooperative, no apparent acute distress. HEENT: Neck is supple, no JVD, no lymphadenopathy. Right IJ Cordis chest wall sternal saw is also is no: This is is Social is normal. As is 40ng. RESPIRATORY: Lungs sounds essentially clear throughout, diminished to her bilateral bases. Respirations are symmetrical and nonlabored. Currently on 2 L nasal cannula with oxygen saturations 9%. Able to achieve 750 mL on her incentive spirometry. Strong cough. CARDIOVASCULAR: Regular rhythm and rate. S1 and S2 present, negative for S3, gallop or murmur. Sternum is stable. Palpable peripheral pulses bilaterally. No calf pain or tenderness noted. Heart hugger in place with patient demonstrating appropriate use. Knee-high BRODY hose and sequential compression devices in place to her bilateral lower extremities. GASTROINTESTINAL: Abdomen soft, nontender, nondistended. Active bowel sounds present 4 quadrants. Tolerating diet. Passing flatus. No guarding or rigidity. GENITOURINARY: Isaac present draining clear, yellow urine. Output 350 mL in the last 8 hours. INTEGUMENTARY: Skin is warm and dry with no evidence of clubbing or cyanosis. Midline sternal incision clean dry and well approximated, covered with dry intact dressing. NEUROLOGIC: Cranial nerves II through XII intact. No focal deficits. MUSKULOSKELETAL: Able to move all extremities, strength equal bilaterally, generalized weakness. PSYCHIATRIC: Alert and oriented to person place and time, appropriate affect, intact judgment and insight. INVASIVE LINES AND TUBES: Mediastinal, left and right pleural chest tubes present and connected to low continuous wall suction, no air leaks present. Mediastinal/left pleural chest tubes with 140 mL of thin serosanguineous drainage overnight, 400 mL output in the last 24 hours. Right pleural chest tube with 150 mL of thin serosanguineous drainage overnight, 490 mL output in the last 24 hours. Atrial and ventricular epicardial pacemaker wires present, connected to generator, VVI backup rate 50 bpm. Right internal jugular Cordis in place and functioning. Current CVP 14 mmHg. - Allied health notes Allied health notes reviewed: nursing - Labs CBC & Chem 7: 01/11/22 05:35 01/11/22 05:35 Labs: Abnormal Lab Results - Last 24 Hours (Table) 01/02/22 01/10/22 01/10/22 Range/Units 09:00 11:52 16:00 WBC 12.0 H (3.8-10.6) k/uL RBC 2.68 L (3.80-5.40) m/uL Hgb 8.7 L (11.4-16.0) gm/dL Hct 25.5 L (34.0-46.0) % Plt Count 100 L (150-450) k/uL Neutrophils # (1.3-7.7) k/uL Sodium (137-145) mmol/L BUN (7-17) mg/dL Glucose (74-99) mg/dL POC Glucose (mg/dL) 126 H (75-99) mg/dL Calcium (8.4-10.2) mg/dL AST (14-36) U/L Total Protein (6.3-8.2) g/dL Albumin (3.5-5.0) g/dL Crossmatch See Detail 01/10/22 01/10/22 01/11/22 Range/Units 17:58 21:10 05:35 WBC 11.1 H (3.8-10.6) k/uL RBC 2.60 L (3.80-5.40) m/uL Hgb 8.6 L (11.4-16.0) gm/dL Hct 25.6 L (34.0-46.0) % Plt Count 114 L (150-450) k/uL Neutrophils # 8.7 H (1.3-7.7) k/uL Sodium (137-145) mmol/L BUN (7-17) mg/dL Glucose (74-99) mg/dL POC Glucose (mg/dL) 138 H 118 H (75-99) mg/dL Calcium (8.4-10.2) mg/dL AST (14-36) U/L Total Protein (6.3-8.2) g/dL Albumin (3.5-5.0) g/dL Crossmatch 01/11/22 01/11/22 Range/Units 05:35 06:50 WBC (3.8-10.6) k/uL RBC (3.80-5.40) m/uL Hgb (11.4-16.0) gm/dL Hct (34.0-46.0) % Plt Count (150-450) k/uL Neutrophils # (1.3-7.7) k/uL Sodium 130 L (137-145) mmol/L BUN 21 H (7-17) mg/dL Glucose 103 H (74-99) mg/dL POC Glucose (mg/dL) 125 H (75-99) mg/dL Calcium 7.9 L (8.4-10.2) mg/dL AST 59 H (14-36) U/L Total Protein 4.9 L (6.3-8.2) g/dL Albumin 2.8 L (3.5-5.0) g/dL Crossmatch - Imaging and Cardiology Chest x-ray: report reviewed, image reviewed Assessment and Plan Assessment: 1. Severe mitral valve regurgitation, status post mitral valve repair 2. History of chronic diastolic heart failure 3. Lifetime nonsmoker with mild lung disease, preoperative FEV1 68% of predicted 4. Remote history of pneumonia 5. Obstructive sleep apnea without CPAP use 6. Arthritis 7. Vaccinated and boosted against Covid-19 8. Postoperative acute blood loss anemia and thrombocytopenia, expected 9. Postoperative paroxysmal atrial fibrillation, a known common occurrence after cardiac surgery Plan: 1. Continue aspirin, statin, metoprolol tartrate and Plavix. Will increase metoprolol tartrate 25 mg by mouth twice a day. 2. Continue amiodarone 200 mg by mouth daily for A. fib prophylaxis. Amiodarone 150 mg IV piggyback 1 now. 3. Wean O2 as tolerated. Encourage incentive spirometry 10 times every hour while awake. Bronchodilators per pulmonology. 4. Increase activity, ambulate as tolerated. PT/OT/cardiac rehab following. 5. GI/DVT prophylaxis. 6. Pain control with current medication regimen. 7. Insulin management per primary care service. Patient is not diabetic, preoperative hemoglobin A1c 5.2%, however patient does need tight blood sugar control to prevent infection and promote sternal union. 8. Will monitor daily labs and chest x-rays. Electrolyte replacement per protocol. 9. Remove right IJ Cordis. 10. Mediastinal/left pleural chest tube removed without incident. Keep right pleural chest tube for another 24 hours to low continuous wall suction -20 cm H2O. 11. Remove Isaac catheter, continue to record strict accurate intake and output. Daily weights 12. Lasix 20 mg IV twice a day will be initiated. 13. More recommendations to follow based on patient's clinical course. Time with Patient: Greater than 30
--- NOTE | 2022-01-11 11:49 | P.PN ---
Subjective Progress Note Date: 01/11/22 On today's evaluation of 01/10/2022, I'm seeing the patient for a follow-up. The patient is postop day #2. The patient is post mitral valve repair. Overall, the patient is doing well. The patient postop developed a hemoglobin of 5.7 and the patient got transfused a total of 2 units of packed RBC. On today's evaluation, the patient continues to have the mediastinal left and right pleural chest tube. Note that the chest tube on the right has been on 142 over the past 12 hours and the left than the mediastinal chest tubes colectomy and they now 170 mL. The patient is alert and awake. The patient is not in acute respiratory distress. The patient on 2 L of oxygen by nasal cannula and a pulse ox is around 96%. The patient also received a dose of Lasix 20 mg IV push 1. He is ambulating. Vertical site is dry clean and intact. The pain is under good control. His comorbid conditions include diastolic heart failure, remote history of pneumonia, obstructive sleep apnea, and the patient is fully vaccinated to COVID 19. White cell count of 10.1 hemoglobin of 8.6. BUN is 26 with a creatinine of 0.9. Sodium is at 131. LFTs are within normal limits. On today's evaluation of 01/11/2022, the patient is postop day #3 following a mitral valve repair surgery. On today's evaluation, the patient is doing well and she is sitting up on a chair and she has no difficulties in breathing or any complaints. The patient has a mediastinal and left pleural chest tube and output has been around 2 40 mL over the past 12 hours and a right pleural chest tube has drained approximately 3 ounces over the past 12 hours. Chest x-ray still showing [place] pleural effusions. All of the children in good location. Volume overload/interstitial edema is seen on today's chest x-ray. There is no evidence of any pneumothorax. The patient is using incentive spirometer. She is pulling approximately 7 50 mL on her diet. He remains on oxygen at 2 L per minute nasal cannula. Hemoglobin stable at 8.6. The white cell count is at 11.1 sodium is at 1:30, BUN is at 21 with a creatinine of 0.6. Cardiac rhythm remains sinus. Surgical wound site is dry clean and intact. No issues with pain. No focal neurological deficits. The patient is alert and awake. The arterial line was discontinued from the right arm. She still has a Cordis in her right IJ. She did have a short run of atrial fibrillation in the morning for which she was given amiodarone 150 mg IV piggyback 1 and she is back into normal sinus rhythm. Objective - Vital Signs Vital signs: Vital Signs Temp 98.1 F 01/11/22 08:00 Pulse 78 01/11/22 11:25 Resp 21 01/11/22 11:00 BP 115/70 01/11/22 11:00 Pulse Ox 95 01/11/22 10:00 Intake & Output 01/10/22 01/11/22 01/11/22 18:59 06:59 18:59 Intake Total 823 824 446 Output Total 905 1170 620 Balance -82 -346 -174 Weight 72.3 kg Intake: IV 323 299 46 0.9 Sodium Chloride 54 Pressure Bag CARDIAC OUTPUT 0.9 Sodium 9 39 6 Chloride Lactated Ringers 1,000 ml 260 260 40 @ 20 mls/hr IV .Q24H [facility] Rx#:[id number] Intake, IV Titration 150 Amount Dextrose 5% in Water 100 150 ml @ 618 mls/hr IV .Q10M ONE with Amiodarone 150 mg Rx#:[id number] Oral 500 525 250 Output: Chest Tube Drainage 290 570 220 Chest Tube Bilateral 120 250 100 Mediastinal Chest Tube Right Anterior 170 320 120 Chest Urine 615 600 400 Other: Voiding Method Indwelling Catheter Bedside Commode Toilet # Voids 0 1 # Bowel Movements 1 ABP, PAP, CO, CI - Last Documented Arterial Blood Pressure 136/51 Pulmonary Artery Pressure 27/10 Cardiac Output 4.0 Cardiac Index 2.4 - Exam CONSTITUTIONAL: Sitting up to the bedside chair in the intensive care unit, appears comfortable, cooperative, no apparent acute distress. HEENT: Neck is supple, no JVD, no lymphadenopathy. Right IJ Cordis RESPIRATORY: Lungs sounds essentially clear throughout, diminished to her bilateral bases. Respirations are symmetrical and nonlabored. Currently on 2 L nasal cannula with oxygen saturations 96%. Able to achieve 500 mL on her incentive spirometry. Strong cough. CARDIOVASCULAR: Regular rhythm and rate. S1 and S2 present, negative for S3, gallop or murmur. Sternum is stable. Palpable peripheral pulses bilaterally. No calf pain or tenderness noted. Heart hugger in place with patient demon strating appropriate use. Knee-high BRODY hose and sequential compression devices in place to her bilateral lower extremities. GASTROINTESTINAL: Abdomen soft, nontender, nondistended. Active bowel sounds present 4 quadrants. Tolerating diet. Passing flatus. No guarding or rigidity. GENITOURINARY: Isaac present draining clear, yellow urine. Output 530 mL in the last 8 hours. INTEGUMENTARY: Skin is warm and dry with no evidence of clubbing or cyanosis. Midline sternal incision clean dry and well approximated, covered with dry intact dressing. NEUROLOGIC: Cranial nerves II through XII intact. No focal deficits. MUSKULOSKELETAL: Able to move all extremities, strength equal bilaterally, generalized weakness. PSYCHIATRIC: Alert and oriented to person place and time, appropriate affect, intact judgment and insight. INVASIVE LINES AND TUBES: Mediastinal, left and right pleural chest tubes present and connected to low continuous wall suction, no air leaks present. - Labs CBC & Chem 7: 01/11/22 05:35 01/11/22 05:35 Labs: Abnormal Lab Results - Last 24 Hours (Table) 01/02/22 01/10/22 01/10/22 Range/Units 09:00 11:52 16:00 WBC 12.0 H (3.8-10.6) k/uL RBC 2.68 L (3.80-5.40) m/uL Hgb 8.7 L (11.4-16.0) gm/dL Hct 25.5 L (34.0-46.0) % Plt Count 100 L (150-450) k/uL Neutrophils # (1.3-7.7) k/uL Sodium (137-145) mmol/L BUN (7-17) mg/dL Glucose (74-99) mg/dL POC Glucose (mg/dL) 126 H (75-99) mg/dL Calcium (8.4-10.2) mg/dL AST (14-36) U/L Total Protein (6.3-8.2) g/dL Albumin (3.5-5.0) g/dL Crossmatch See Detail 01/10/22 01/10/22 01/11/22 Range/Units 17:58 21:10 05:35 WBC 11.1 H (3.8-10.6) k/uL RBC 2.60 L (3.80-5.40) m/uL Hgb 8.6 L (11.4-16.0) gm/dL Hct 25.6 L (34.0-46.0) % Plt Count 114 L (150-450) k/uL Neutrophils # 8.7 H (1.3-7.7) k/uL Sodium (137-145) mmol/L BUN (7-17) mg/dL Glucose (74-99) mg/dL POC Glucose (mg/dL) 138 H 118 H (75-99) mg/dL Calcium (8.4-10.2) mg/dL AST (14-36) U/L Total Protein (6.3-8.2) g/dL Albumin (3.5-5.0) g/dL Crossmatch 01/11/22 01/11/22 01/11/22 Range/Units 05:35 06:50 11:37 WBC (3.8-10.6) k/uL RBC (3.80-5.40) m/uL Hgb (11.4-16.0) gm/dL Hct (34.0-46.0) % Plt Count (150-450) k/uL Neutrophils # (1.3-7.7) k/uL Sodium 130 L (137-145) mmol/L BUN 21 H (7-17) mg/dL Glucose 103 H (74-99) mg/dL POC Glucose (mg/dL) 125 H 101 H (75-99) mg/dL Calcium 7.9 L (8.4-10.2) mg/dL AST 59 H (14-36) U/L Total Protein 4.9 L (6.3-8.2) g/dL Albumin 2.8 L (3.5-5.0) g/dL Crossmatch Assessment and Plan Plan: History of severe mitral regurgitation, status post MVR postoperative day #3, hemodynamically stable on no pressors Paroxysmal atrial fibrillation current rhythm is sinus at the receiving amio darone on 50 mg IV piggyback 1 Post thoracotomy. The patient continues to have drainage from his chest tubes, and the patient continues to have a right pleural, mediastinal left pleural chest tube. Output has been noted. Chest x-ray was noted. Note this of the pneumothorax. No evidence of any air leak. The output from the chest tubes are still considerably high and a chest x-ray was noted and there is no evidence of any pneumothorax Chronic diastolic congestive heart failure Obstructive sleep apnea syndrome, not compliant with CPAP. Lifetime nonsmoker Postoperative acute blood loss anemia/thrombocytopenia, expected outcome of surgery and the patient was given a total of 2 units of packed RBC Plan Monitor the output from the chest tubes, keep the chest tubes in for another 24 hours Monitor the cardiac rhythm. The patient was started on amiodarone 200 mg daily for A. fib prophylaxis. Cardiac rhythm is currently sinus. Continue aspirin and Plavix. The patient is also started on metoprolol 25 mg twice a day Continue using incentive spirometer Continue aspirin and Plavix Pain is under adequate control. Keep the Isaac catheter in place and the patient will be continued IV Lasix. We'll continue to follow.
[2022-01-11] MEDS: lisinopriL 5 MG TAB PO SCH (12:29)
[2022-01-11 16:24] LABS: Glucose,Whole Blood 118 mg/dL (75-99)
[2022-01-11] MEDS: SENNOSIDES-DOCUSATE SODIUM 1 EACH TAB PO SCH (20:20)
[2022-01-11 20:44] LABS: Glucose,Whole Blood 125 mg/dL (75-99)
[2022-01-11] MEDS ORDERED: AMIODARONE 360 MG in DEXTROSE 5% IN WATER 200 ML IV ONE ×2 (20:59)
[2022-01-11] MEDS: METOPROLOL TARTRATE 5 MG/5 ML VIAL IVP SCH (21:16)
[2022-01-12] MEDS: ACETAMINOPHEN TAB 325 MG TAB PO PRN (02:55)
[2022-01-12] MEDS: AMIODARONE 450 MG in DEXTROSE 5% IN WATER 250 ML IV SCH ×4 (04:38→18:16)
[2022-01-12 06:26] LABS: HGB 8.4 gm/dL (11.4-16.0); MCH 32.9 pg (25.0-35.0); MCHC 33.4 g/dL (31.0-37.0); MCV 98.6 fL (80.0-100.0); Mean Platelet Volume 8.7; Platelet Count 141 k/uL (150-450); RBC 2.54 m/uL (3.80-5.40); RDW 14.8 % (11.5-15.5); WBC 9.1 k/uL (3.8-10.6)
[2022-01-12 06:47] LABS: ALT 25 U/L (4-34); AST 49 U/L (14-36); African American GFR (CKD) >90 (>60 ml/min/1.73 sqM); Albumin 2.8 g/dL (3.5-5.0); Alkaline Phosphatase 52 U/L (38-126); Anion Gap 1 mmol/L; Blood Urea Nitrogen 17 mg/dL (7-17); Calcium 7.8 mg/dL (8.4-10.2); Carbon Dioxide 29 mmol/L (22-30); Chloride 98 mmol/L (98-107); Glucose 106 mg/dL (74-99); Non-African American GFR(CKD) 87 (>60 ml/min/1.73 sqM); Potassium 3.6 mmol/L (3.5-5.1); Sodium 128 mmol/L (137-145); Total Bilirubin 0.9 mg/dL (0.2-1.3); Total Protein 4.9 g/dL (6.3-8.2)
[2022-01-12 07:18] LABS: Glucose,Whole Blood 116 mg/dL (75-99)
--- NOTE | 2022-01-12 07:30 | XR ---
EXAMINATION TYPE: XR chest 1V portable DATE OF EXAM: 01/12/2022 COMPARISON: Chest x-ray 01/11/2022 HISTORY: Postop mitral valve replacement TECHNIQUE: Single frontal view of the chest is obtained. FINDINGS: Patient is post median sternotomy, mitral valve replacement. Right-sided chest tube remain s in place, left-sided chest tube has been removed. Median sternal drain no longer seen. Suspect mini mal left apical pneumothorax is present. There are overlying artifacts. Patchy basilar density persis ts on the left, there is improvement in visualization of the right hemidiaphragm. Cardiac mediastinal silhouette shows a similar appearance. Patient is rotated. IMPRESSION: Minimal left apical pneumothorax is suspected, there is basilar atelectasis. Postop avendano ges. Interval tube removals
[2022-01-12] MEDS: IPRATROPIUM-ALBUTEROL 3 ML NEB INHALATION SCH ×4 (07:38→21:17)
[2022-01-12] MEDS: INSULIN ASPART (NovoLOG) 100 UNIT/ML VIAL SQ SCH ×4 (07:59→20:19)
[2022-01-12] MEDS ORDERED: POTASSIUM CHLORIDE ER 20 MEQ TAB.ER PO SCH (08:00)
[2022-01-12] MEDS: ATORVASTATIN 40 MG TAB PO SCH (08:11)
[2022-01-12] MEDS: METOPROLOL TARTRATE 25 MG TAB PO SCH ×2 (08:11→20:23)
[2022-01-12] MEDS: PANTOPRAZOLE 40 MG TABLET PO SCH (08:11)
[2022-01-12] MEDS: ASPIRIN 81 MG PO SCH (08:11)
[2022-01-12] MEDS: FUROSEMIDE 10 MG/ML 2 ML VIAL IV SCH ×2 (08:11→17:02)
[2022-01-12] MEDS: HEPARIN SODIUM,PORCINE/PF 5,000 UNIT/0.5 ML SYRINGE SQ SCH ×3 (08:12→23:40)
[2022-01-12] MEDS: AMIODARONE 200 MG TAB PO SCH (08:12)
[2022-01-12] MEDS: guaiFENesin 600 MG TABLET.ER PO SCH ×2 (08:12→20:25)
[2022-01-12] MEDS: MULTIVITAMINS, THERA 1 EACH TAB PO SCH (08:13)
--- NOTE | 2022-01-12 09:19 | P.PN ---
Subjective Progress Note Date: 01/12/22 Principal diagnosis: Severe mitral valve regurgitation. Past medical history significant for chronic diastolic heart failure, lifetime nonsmoker with mild lung disease, remote his tory of pneumonia, obstructive sleep apnea without CPAP use, arthritis. Vaccinated and boosted against Covid-19 POD #4 mitral valve repair with #26 mm physio-2 ring, ligation of the left atrial appendage, epi-aortic ultrasound, and intraoperative transesophageal echocardiogram performed by anesthesia. Postoperative acute blood loss anemia and thrombocytopenia, expected given hemodilution and cardiopulmonary bypass pump. Postoperative paroxysmal atrial fibrillation, a known common occurrence after cardiac surgery. The patient was seen in follow-up today 01/12/2022 at her bedside in the [facility] care unit. Currently she is sitting up to the bedside chair, is awake, alert, oriented 3 and is in no acute apparent distress. She denies any complaints of pain or shortness of breath this time. Oxygen saturation are 96% on room air and she is achieving 1000 mL on her incentive spirometry with encouragement. Right pleural chest tube remains in place to low continuous wall suction -20 cm H2O. No air leak is present. Draining thin serosanguineous drainage with 20 mL output in the last 8 hours and 290 mL output in the last 24 hours. Bedside telemetry is currently showing normal sinus rhythm heart rate 73 BPM. The night nurse reports that the patient did have some atrial fibrillation with RVR and was started on amiodarone drip per protocol and is currently infusing at 0.5 mg/m. She remains hemodynamically stable and is currently on no inotropic or pressor support. She remains afebrile the last 24 hours. Objective - Vital Signs Vital signs: Vital Signs Temp 97.8 F 01/12/22 04:00 Pulse 72 01/12/22 07:48 Resp 15 01/12/22 07:00 BP 112/69 01/12/22 07:00 Pulse Ox 95 01/12/22 07:00 Intake & Output 01/11/22 01/12/22 01/12/22 18:59 06:59 18:59 Intake Total 446 1426.44 16.67 Output Total 790 1810 30 Balance -344 -383.56 -13.33 Weight 70.5 kg Intake: IV 46 416.44 16.67 Amio Bolus 150 Amiodarone 360 mg In 233.1 Dextrose 5% in Water 200 ml @ 1 MG/MIN 33.333 mls/ hr IV .Q6H [facility] Rx#: [id number] Amiodarone 450 mg In 33.34 16.67 Dextrose 5% in Water 250 ml @ 0.5 MG/MIN 16.667 mls/hr IV .Q15H [facility] Rx#: [id number] CARDIAC OUTPUT 0.9 Sodium 6 Chloride Lactated Ringers 1,000 ml 40 @ 20 mls/hr IV .Q24H [facility] Rx#:[id number] Intake, IV Titration 150 Amount Dextrose 5% in Water 100 150 ml @ 618 mls/hr IV .Q10M [facility] with Amiodarone 150 mg Rx#:[id number] Oral 250 1010 Output: Chest Tube Drainage 140 160 30 Chest Tube Bilateral 100 Mediastinal Chest Tube Right Anterior 40 160 30 Chest Urine 650 1650 0 Other: Voiding Method Toilet Bedside Commode Diaper # Voids 1 # Bowel Movements 1 ABP, PAP, CO, CI - Last Documented Arterial Blood Pressure 136/51 Pulmonary Artery Pressure 27/10 Cardiac Output 4.0 Cardiac Index 2.4 - Exam CONSTITUTIONAL: Sitting up to the bedside chair in the intensive care unit, appears comfortable, cooperative, no apparent acute distress. HEENT: Neck is supple, no JVD, no lymphadenopathy. RESPIRATORY: Lungs sounds essentially clear throughout, diminished to her bilateral bases. Respirations are symmetrical and nonlabored. Currently on room air with oxygen saturations 96%. Able to achieve 1000 mL on her incentive spirometry. Strong cough. CARDIOVASCULAR: Regular rhythm and rate. S1 and S2 present, negative for S3, gallop or murmur. Sternum is stable. Palpable peripheral pulses bilaterally. No calf pain or tenderness noted. Heart hugger in place with patient demonstrating appropriate use. Knee-high BROYD hose and sequential compression devices in place to her bilateral lower extremities. GASTROINTESTINAL: Abdomen soft, nontender, nondistended. Active bowel sounds present 4 quadrants. Tolerating diet. Passing flatus. No guarding or rigidity. Bowel movement yesterday 01/11/2022. GENITOURINARY: Continues to void. INTEGUMENTARY: Skin is warm and dry with no evidence of clubbing or cyanosis. Midline sternal incision clean dry and well approximated, covered with dry intact dressing. NEUROLOGIC: Cranial nerves II through XII intact. No focal deficits. MUSKULOSKELETAL: Able to move all extremities, strength equal bilaterally, generalized weakness. PSYCHIATRIC: Alert and oriented to person place and time, appropriate affect, intact judgment and insight. INVASIVE LINES AND TUBES: Right pleural chest tube with 20 mL of thin serosanguineous drainage overnight, 290 mL output in the last 24 hours. Atrial and ventricular epicardial pacemaker wires present, and grounded. - Allied health notes Allied health notes reviewed: nursing - Labs CBC & Chem 7: 01/12/22 05:38 01/12/22 05:38 Labs: Abnormal Lab Results - Last 24 Hours (Table) 01/11/22 01/11/22 01/11/22 Range/Units 11:37 16:22 20:39 RBC (3.80-5.40) m/uL Hgb (11.4-16.0) gm/dL Hct (34.0-46.0) % Plt Count (150-450) k/uL Sodium (137-145) mmol/L Glucose (74-99) mg/dL POC Glucose (mg/dL) 101 H 118 H 125 H (75-99) mg/dL Calcium (8.4-10.2) mg/dL AST (14-36) U/L Total Protein (6.3-8.2) g/dL Albumin (3.5-5.0) g/dL 01/12/22 01/12/22 01/12/22 Range/Units 05:38 05:38 07:16 RBC 2.54 L (3.80-5.40) m/uL Hgb 8.4 L (11.4-16.0) gm/dL Hct 25.0 L (34.0-46.0) % Plt Count 141 L (150-450) k/uL Sodium 128 L (137-145) mmol/L Glucose 106 H (74-99) mg/dL POC Glucose (mg/dL) 116 H (75-99) mg/dL Calcium 7.8 L (8.4-10.2) mg/dL AST 49 H (14-36) U/L Total Protein 4.9 L (6.3-8.2) g/dL Albumin 2.8 L (3.5-5.0) g/dL - Imaging and Cardiology Chest x-ray: report reviewed, image reviewed Assessment and Plan Assessment: 1. Severe mitral valve regurgitation, status post mitral valve repair 2. History of chronic diastolic heart failure 3. Lifetime nonsmoker with mild lung disease, preoperative FEV1 68% of predicted 4. Remote history of pneumonia 5. Obstructive sleep apnea without CPAP use 6. Arthritis 7. Vaccinated and boosted against Covid-19 8. Postoperative acute blood loss anemia and thrombocytopenia, expected 9. Postoperative paroxysmal atrial fibrillation, a known common occurrence after cardiac surgery Plan: 1. Continue aspirin, statin, metoprolol tartrate and Plavix. Will increase metoprolol tartrate as tolerated. 2. Continue amiodarone 200 mg by mouth daily for A. fib prophylaxis. Amiodarone drip management per cardiology recommendations. 3. Encourage incentive spirometry 10 times every hour while awake. Broncho dilators per pulmonology. 4. Increase activity, ambulate as tolerated. PT/OT/cardiac rehab following. 5. GI/DVT prophylaxis. 6. Pain control with current medication regimen. 7. Insulin management per primary care service. Patient is not diabetic, preoperative hemoglobin A1c 5.2%, however patient does need tight blood sugar control to prevent infection and promote sternal union. 8. Will monitor daily labs and chest x-rays. Electrolyte replacement per protocol. 9. Right pleural chest tube removed without incident. 10. Continue Lasix 20 mg IV twice a day, start on potassium chloride 20 mEq by mouth daily while on Lasix. 11. Continue to record strict accurate intake and output. Daily weights 12. More recommendations to follow based on patient's clinical course. Time with Patient: Greater than 30
--- NOTE | 2022-01-12 09:58 | P.PN ---
Subjective Progress Note Date: 01/09/22 This is 71-year-old female patient of Dr. Agee who presented for an elective mitral valve replacement with Dr. Maher on 01/08/2022. Patient has a past medical history of congestive heart failure with dyspnea and was found to have severe mitral valve regurg. Additional medical history includes arthritis and anxiety. Patient is currently on mechanical ventilation postoperatively in the intensive care unit. Patient is currently sedated with propofol. Current vent settings before meals controlled rate of 14, tidal volume 450, FiO2 100% and PEEP of 5. Mediastinal and left-sided Chest tubes in place. Midline dressing is clean dry and intact. Cardiothoracic, critical care and cardiology services are following. Thank you for this consultation we will continue to follow patient closely throughout stay On 01/09/2022 patient was seen and examined in the ICU she is alert and oriented 3 in no apparent stress is extubated yesterday and is tolerating well, vital exam reveals a temperature of 99.5 pulse 80 respiration 12 blood pressure 111/57 pulse ox 92% on 2 L nasal cannula, patient is complaining of pain at the surgical site otherwise she denies any complaints. Patient was resumed on i nsulin and her glucose level is well-controlled at this time, will continue to follow closely. Objective - Vital Signs Vital signs: Vital Signs Temp 97.9 F 01/09/22 12:00 Pulse 68 01/09/22 15:19 Resp 31 H 01/09/22 15:00 BP 80/46 01/09/22 07:00 Pulse Ox 96 01/09/22 14:00 Intake & Output 01/08/22 01/09/22 01/09/22 18:59 06:59 18:59 Intake Total 8208.615 8475.407 1127.891 Output Total 4133 1480 828 Balance -2323.884 516.407 299.891 Weight 70.9 kg 70.9 kg Intake: IV 1136 1328 756 0.9 Sodium Chloride 54 108 66 Pressure Bag ACETAMINOPHEN IV (For NPO 100 ) 1,000 mg In Empty Bag 1 bag @ 400 mls/hr IVPB Q6H [facility] Rx#:[id number] Albumin Human 5% 250 ml 500 500 250 In Empty Bag 1 bag @ 250 mls/hr IVPB Q1HR PRN Rx#: [id number] CARDIAC OUTPUT 0.9 Sodium 130 170 40 Chloride Lactated Ringers 1,000 ml 300 550 350 @ 20 mls/hr IV .Q24H [facility] Rx#:[id number] ceFAZolin 2 gm In Sodium 50 Chloride 0.9% 50 ml @ 100 mls/hr IVPB Q8HR [facility] Rx# :[id number] Intake, IV Titration 53.116 128.407 21.891 Amount ACETAMINOPHEN IV (For NPO 100 ) 1,000 mg In Empty Bag 1 bag @ 400 mls/hr IVPB Q6H [facility] Rx#:[id number] Clevidipine Butyrate 25 13.800 mg In Empty Bag 1 bag @ 1 MG/HR 2 mls/hr IV .Q24H [facility] Rx#:[id number] Insulin Regular 100 unit 12.314 28.407 21.891 In Sodium Chloride 0.9% 100 ml @ Per Protocol IV .Q0M [facility] Rx#:[id number] propofoL 1,000 mg In 27.002 Empty Bag 1 bag @ Titrate IV .Q0M [facility] Rx#: [id number] Oral 540 350 Blood Product 620 Rc As-1 Unit 310 [id number] Rc As-1 Unit 310 [id number] Output: Chest Tube Drainage 750 800 630 Chest Tube Bilateral 280 320 280 Mediastinal Chest Tube Right Anterior 470 480 350 Chest Urine 858 630 198 Emesis 25 50 Estimated Blood Loss 2500 Other: Voiding Method Indwelling Catheter Indwelling Catheter Indwelling Catheter ABP, PAP, CO, CI - Last Documented Arterial Blood Pressure 114/35 Pulmonary Artery Pressure 27/10 Cardiac Output 4.0 Cardiac Index 2.4 - Exam Head normocephalic Neck supple Lungs clear to auscultation bilaterally no wheezing or crackles Heart regular rate and rhythm S1-S2, no rub or gallop. Midline dressing clean dry and intact Abdomen is soft nontender nondistended positive bowel sounds no hepatosplenomegaly Extremities no edema Neuro - Labs CBC & Chem 7: 01/09/22 04:00 01/09/22 04:00 Labs: Abnormal Lab Results - Last 24 Hours (Table) 01/08/22 01/08/22 01/08/22 Range/Units 18:02 18:50 18:56 RBC 3.06 L (3.80-5.40) m/uL Hgb 10.1 L D (11.4-16.0) gm/dL Hct 30.3 L (34.0-46.0) % Plt Count 104 L (150-450) k/uL Neutrophils # 9.1 H (1.3-7.7) k/uL Lymphocytes # 0.7 L (1.0-4.8) k/uL Sodium (137-145) mmol/L Chloride 111 H (98-107) mmol/L Glucose 107 H (74-99) mg/dL POC Glucose (mg/dL) 126 H (75-99) mg/dL Calcium 7.5 L (8.4-10.2) mg/dL Magnesium (1.6-2.3) mg/dL AST (14-36) U/L Alkaline Phosphatase (38-126) U/L Total Protein (6.3-8.2) g/dL Albumin (3.5-5.0) g/dL 01/08/22 01/08/22 01/08/22 Range/Units 19:36 20:55 21:57 RBC (3.80-5.40) m/uL Hgb (11.4-16.0) gm/dL Hct (34.0-46.0) % Plt Count (150-450) k/uL Neutrophils # (1.3-7.7) k/uL Lymphocytes # (1.0-4.8) k/uL Sodium (137-145) mmol/L Chloride (98-107) mmol/L Glucose (74-99) mg/dL POC Glucose (mg/dL) 101 H 135 H 130 H (75-99) mg/dL Calcium (8.4-10.2) mg/dL Magnesium (1.6-2.3) mg/dL AST (14-36) U/L Alkaline Phosphatase (38-126) U/L Total Protein (6.3-8.2) g/dL Albumin (3.5-5.0) g/dL 01/08/22 01/09/22 01/09/22 Range/Units 22:57 00:59 01:55 RBC (3.80-5.40) m/uL Hgb (11.4-16.0) gm/dL Hct (34.0-46.0) % Plt Count (150-450) k/uL Neutrophils # (1.3-7.7) k/uL Lymphocytes # (1.0-4.8) k/uL Sodium (137-145) mmol/L Chloride (98-107) mmol/L Glucose (74-99) mg/dL POC Glucose (mg/dL) 122 H 115 H 131 H (75-99) mg/dL Calcium (8.4-10.2) mg/dL Magnesium (1.6-2.3) mg/dL AST (14-36) U/L Alkaline Phosphatase (38-126) U/L Total Protein (6.3-8.2) g/dL Albumin (3.5-5.0) g/dL 01/09/22 01/09/22 01/09/22 Range/Units 03:00 04:00 04:00 RBC 2.46 L (3.80-5.40) m/uL Hgb 7.9 L D (11.4-16.0) gm/dL Hct 23.9 L (34.0-46.0) % Plt Count 95 L (150-450) k/uL Neutrophils # (1.3-7.7) k/uL Lymphocytes # 0.8 L (1.0-4.8) k/uL Sodium 135 L (137-145) mmol/L Chloride (98-107) mmol/L Glucose 103 H (74-99) mg/dL POC Glucose (mg/dL) 126 H (75-99) mg/dL Calcium 7.7 L (8.4-10.2) mg/dL Magnesium 2.7 H (1.6-2.3) mg/dL AST 90 H (14-36) U/L Alkaline Phosphatase 35 L (38-126) U/L Total Protein 4.3 L (6.3-8.2) g/dL Albumin 2.6 L (3.5-5.0) g/dL 01/09/22 01/09/22 01/09/22 Range/Units 04:02 05:01 06:46 RBC (3.80-5.40) m/uL Hgb (11.4-16.0) gm/dL Hct (34.0-46.0) % Plt Count (150-450) k/uL Neutrophils # (1.3-7.7) k/uL Lymphocytes # (1.0-4.8) k/uL Sodium (137-145) mmol/L Chloride (98-107) mmol/L Glucose (74-99) mg/dL POC Glucose (mg/dL) 111 H 126 H 116 H (75-99) mg/dL Calcium (8.4-10.2) mg/dL Magnesium (1.6-2.3) mg/dL AST (14-36) U/L Alkaline Phosphatase (38-126) U/L Total Protein (6.3-8.2) g/dL Albumin (3.5-5.0) g/dL 01/09/22 01/09/22 01/09/22 Range/Units 08:14 09:02 10:05 RBC (3.80-5.40) m/uL Hgb (11.4-16.0) gm/dL Hct (34.0-46.0) % Plt Count (150-450) k/uL Neutrophils # (1.3-7.7) k/uL Lymphocytes # (1.0-4.8) k/uL Sodium (137-145) mmol/L Chloride (98-107) mmol/L Glucose (74-99) mg/dL POC Glucose (mg/dL) 129 H 118 H 133 H (75-99) mg/dL Calcium (8.4-10.2) mg/dL Magnesium (1.6-2.3) mg/dL AST (14-36) U/L Alkaline Phosphatase (38-126) U/L Total Protein (6.3-8.2) g/dL Albumin (3.5-5.0) g/dL 01/09/22 01/09/22 01/09/22 Range/Units 11:10 12:08 13:09 RBC (3.80-5.40) m/uL Hgb (11.4-16.0) gm/dL Hct (34.0-46.0) % Plt Count (150-450) k/uL Neutrophils # (1.3-7.7) k/uL Lymphocytes # (1.0-4.8) k/uL Sodium (137-145) mmol/L Chloride (98-107) mmol/L Glucose (74-99) mg/dL POC Glucose (mg/dL) 101 H 161 H 150 H (75-99) mg/dL Calcium (8.4-10.2) mg/dL Magnesium (1.6-2.3) mg/dL AST (14-36) U/L Alkaline Phosphatase (38-126) U/L Total Protein (6.3-8.2) g/dL Albumin (3.5-5.0) g/dL 01/09/22 01/09/22 Range/Units 14:13 16:52 RBC (3.80-5.40) m/uL Hgb (11.4-16.0) gm/dL Hct (34.0-46.0) % Plt Count (150-450) k/uL Neutrophils # (1.3-7.7) k/uL Lymphocytes # (1.0-4.8) k/uL Sodium (137-145) mmol/L Chloride (98-107) mmol/L Glucose (74-99) mg/dL POC Glucose (mg/dL) 135 H 121 H (75-99) mg/dL Calcium (8.4-10.2) mg/dL Magnesium (1.6-2.3) mg/dL AST (14-36) U/L Alkaline Phosphatase (38-126) U/L Total Protein (6.3-8.2) g/dL Albumin (3.5-5.0) g/dL Assessment and Plan Assessment: 1. Status post mitral valve replacement on 01/08/[address] Maher. 2. History of severe mitral valve regurg with symptomatic dyspnea 3. History of arthritis 4. History of anxiety Patient remains in the intensive care unit Patient remains on mechanical ventilation and IV sedation Thank you for this consultation we'll continue to follow patient closely throughout stay
--- NOTE | 2022-01-12 11:18 | PN ---
PROGRESS NOTE This lady had a mitral valve repair. She went into atrial fibrillation yesterday; back in sinus rhythm. She is currently on amiodarone at 0.5 mg drip. I am suggesting that we can switch her to 200 mg b.i.d. p.o. after the drip is over. She is in sinus rhythm, doing better. Feels better. Breathing easier. All tubes are out. Physical exam revealed vital signs are normal. S1, S2 heard normally. Short systolic murmur noted. Lungs reveal improved air entry. Abdomen and lower extremity exam is unremarkable. Plan is to continue IV amiodarone, switch her over to oral as soon as the 6 hours is up. MMODL / IJN: [id number] /
[2022-01-12 11:40] LABS: Glucose,Whole Blood 112 mg/dL (75-99)
[2022-01-12] MEDS: lisinopriL 5 MG TAB PO SCH (12:07)
--- NOTE | 2022-01-12 12:31 | P.PN ---
Subjective Progress Note Date: 01/12/22 This is 71-year-old female patient of Dr. Agee who presented for an elective mitral valve replacement with Dr. Maher on 01/08/2022. Patient has a past medical history of congestive heart failure with dyspnea and was found to have severe mitral valve regurg. Additional medical history includes arthritis and anxiety. Patient is currently on mechanical ventilation postoperatively in the intensive care unit. Patient is currently sedated with propofol. Current vent settings before meals controlled rate of 14, tidal volume 450, FiO2 100% and PEEP of 5. Mediastinal and left-sided Chest tubes in place. Midline dressing is clean dry and intact. Cardiothoracic, critical care and cardiology services are following. Thank you for this consultation we will continue to follow patient closely throughout stay On 01/09/2022 patient was seen and examined in the ICU she is alert and oriented 3 in no apparent stress is extubated yesterday and is tolerating well, vital exam reveals a temperature of 99.5 pulse 80 respiration 12 blood pressure 111/57 pulse ox 92% on 2 L nasal cannula, patient is complaining of pain at the surgical site otherwise she denies any complaints. Patient was resumed on i nsulin and her glucose level is well-controlled at this time, will continue to follow closely. On 01/10/2022 patient is alert and oriented 3. Patient remains extubated resting comfortably in chair in intensive care unit. Patient reports some discomfort. Patient will be transitioned to sliding scale coverage for insulin. Heart rate 74, respiratory rate 20, blood pressure 120/61, oxygen saturation 97% on 2 L. Patient denies any nausea vomiting or diarrhea. Patient denies any urinary burning or frequency 01/11/2022 patient is alert and oriented 3. Patient remains in the intensive care unit. [place] has been removed. Patient has one chest tube. Per nursing staff blood sugars have been well controlled. Current temp 98.1, pulse rate 94 and respiratory rate 12, blood pressure 114/64. Patient satting 99% on 2 L On 01/12/2022 patient was seen and examined in the ICU she is alert and oriented 3 in no apparent distress there is no fever or chills no headache or dizziness no chest pain no shortness of breath no cough no nausea or vomiting no abdominal pain no diarrhea and no urinary symptoms, vital examination reveals a temperature of 97.9 pulse 82 respiration 14 blood pressure 132/76 pulse ox 94% on room air, white blood count 9.1 hemoglobin 8.4 platelet count, sodium 128 po tassium 3.6 chloride 98 CO2 29 BUN 17 creatinine 0.69 Objective - Vital Signs Vital signs: Vital Signs Temp 97.9 F 01/12/22 08:00 Pulse 75 01/12/22 11:13 Resp 16 01/12/22 09:00 BP 121/63 01/12/22 09:00 Pulse Ox 97 01/12/22 08:00 Intake & Output 01/11/22 01/12/22 01/12/22 18:59 06:59 18:59 Intake Total 446 1426.44 66.68 Output Total 790 1810 430 Balance -344 -383.56 -363.32 Weight 70.5 kg Intake: IV 46 416.44 66.68 Amio Bolus 150 Amiodarone 360 mg In 233.1 Dextrose 5% in Water 200 ml @ 1 MG/MIN 33.333 mls/ hr IV .Q6H [facility] Rx#: [id number] Amiodarone 450 mg In 33.34 66.68 Dextrose 5% in Water 250 ml @ 0.5 MG/MIN 16.667 mls/hr IV .Q15H [facility] Rx#: [id number] CARDIAC OUTPUT 0.9 Sodium 6 Chloride Lactated Ringers 1,000 ml 40 @ 20 mls/hr IV .Q24H [facility] Rx#:[id number] Intake, IV Titration 150 Amount Dextrose 5% in Water 100 150 ml @ 618 mls/hr IV .Q10M [facility] with Amiodarone 150 mg Rx#:[id number] Oral 250 1010 Output: Chest Tube Drainage 140 160 30 Chest Tube Bilateral 100 Mediastinal Chest Tube Right Anterior 40 160 30 Chest Urine 650 1650 400 Other: Voiding Method Toilet Bedside Commode Diaper # Voids 1 1 # Bowel Movements 1 1 ABP, PAP, CO, CI - Last Documented Arterial Blood Pressure 136/51 Pulmonary Artery Pressure 27/10 Cardiac Output 4.0 Cardiac Index 2.4 - Exam Head normocephalic Neck supple Lungs clear to auscultation bilaterally no wheezing or crackles Heart regular rate and rhythm S1-S2, no rub or gallop. Midline dressing clean dry and intact Abdomen is soft nontender nondistended positive bowel sounds no hepatosplenomegaly Extremities no edema Neuro - Labs CBC & Chem 7: 01/12/22 05:38 01/12/22 05:38 Labs: Abnormal Lab Results - Last 24 Hours (Table) 01/11/22 01/11/22 01/12/22 Range/Units 16:22 20:39 05:38 RBC 2.54 L (3.80-5.40) m/uL Hgb 8.4 L (11.4-16.0) gm/dL Hct 25.0 L (34.0-46.0) % Plt Count 141 L (150-450) k/uL Sodium (137-145) mmol/L Glucose (74-99) mg/dL POC Glucose (mg/dL) 118 H 125 H (75-99) mg/dL Calcium (8.4-10.2) mg/dL AST (14-36) U/L Total Protein (6.3-8.2) g/dL Albumin (3.5-5.0) g/dL 01/12/22 01/12/22 01/12/22 Range/Units 05:38 07:16 11:38 RBC (3.80-5.40) m/uL Hgb (11.4-16.0) gm/dL Hct (34.0-46.0) % Plt Count (150-450) k/uL Sodium 128 L (137-145) mmol/L Glucose 106 H (74-99) mg/dL POC Glucose (mg/dL) 116 H 112 H (75-99) mg/dL Calcium 7.8 L (8.4-10.2) mg/dL AST 49 H (14-36) U/L Total Protein 4.9 L (6.3-8.2) g/dL Albumin 2.8 L (3.5-5.0) g/dL Assessment and Plan Assessment: 1. Status post mitral valve replacement on 01/08/[address] Maher. 2. History of severe mitral valve regurg with symptomatic dyspnea 3. History of arthritis 4. History of anxiety Patient remains in the intensive care unit Patient remains on mechanical ventilation and IV sedation Thank you for this consultation we'll continue to follow patient closely thr oughout stay
--- NOTE | 2022-01-12 14:03 | P.PN ---
Subjective Progress Note Date: 01/12/22 On today's evaluation of 01/10/2022, I'm seeing the patient for a follow-up. The patient is postop day #2. The patient is post mitral valve repair. Overall, the patient is doing well. The patient postop developed a hemoglobin of 5.7 and the patient got transfused a total of 2 units of packed RBC. On today's evaluation, the patient continues to have the mediastinal left and right pleural chest tube. Note that the chest tube on the right has been on 142 over the past 12 hours and the left than the mediastinal chest tubes colectomy and they now 170 mL. The patient is alert and awake. The patient is not in acute respiratory distress. The patient on 2 L of oxygen by nasal cannula and a pulse ox is around 96%. The patient also received a dose of Lasix 20 mg IV push 1. He is ambulating. Vertical site is dry clean and intact. The pain is under good control. His comorbid conditions include diastolic heart failure, remote history of pneumonia, obstructive sleep apnea, and the patient is fully vaccinated to COVID 19. White cell count of 10.1 hemoglobin of 8.6. BUN is 26 with a creatinine of 0.9. Sodium is at 131. LFTs are within normal limits. On today's evaluation of 01/11/2022, the patient is postop day #3 following a mitral valve repair surgery. On today's evaluation, the patient is doing well and she is sitting up on a chair and she has no difficulties in breathing or any complaints. The patient has a mediastinal and left pleural chest tube and output has been around 2 40 mL over the past 12 hours and a right pleural chest tube has drained approximately 3 ounces over the past 12 hours. Chest x-ray still showing [place] pleural effusions. All of the children in good location. Volume overload/interstitial edema is seen on today's chest x-ray. There is no evidence of any pneumothorax. The patient is using incentive spirometer. She is pulling approximately 7 50 mL on her diet. He remains on oxygen at 2 L per minute nasal cannula. Hemoglobin stable at 8.6. The white cell count is at 11.1 sodium is at 1:30, BUN is at 21 with a creatinine of 0.6. Cardiac rhythm remains sinus. Surgical wound site is dry clean and intact. No issues with pain. No focal neurological deficits. The patient is alert and awake. The arterial line was discontinued from the right arm. She still has a Cordis in her right IJ. She did have a short run of atrial fibrillation in the morning for which she was given amiodarone 150 mg IV piggyback 1 and she is back into normal sinus rhythm. 01/12/2022, the patient is doing well. No specific complaints. Sitting up on a chair. The patient continues to have a right-sided chest tube and output has been minimal and order of 40 mL over the past 8 hours. Noted is around 8:30 PM yesterday, the patient went into atrial fibrillation. She was given amiodarone bolus. She converted into normal sinus rhythm. The patient is currently on amiodarone drip at 0.5 mg/minutes. The patient otherwise doing well. Hemodynamically stable. The patient is currently on room air oxygen. Pulse ox 98%. She was started on IV Lasix 20 mg IV push every 12 hours. Overall fluid balance is negative for on 28 mL over the past 24 hours and the patient is using incentive spirometer, pulling approximately thousand. Chest x-ray from today shows adequate expansion of both lungs. Both lung bases show some atelectatic changes small effusions. Right-sided chest tube still in place. Meanwhile, the white count was at 9.1 with a hemoglobin of 8.4 and a platelet count of 141. Sodium is at 128, BUN is at 17 with a creatinine of 0.6. LFTs are essentially within normal limits. Objective - Vital Signs Vital signs: Vital Signs Temp 97.9 F 01/12/22 08:00 Pulse 75 01/12/22 11:13 Resp 16 01/12/22 09:00 BP 121/63 01/12/22 09:00 Pulse Ox 97 01/12/22 08:00 Intake & Output 01/11/22 01/12/22 01/12/22 18:59 06:59 18:59 Intake Total 446 1426.44 66.68 Output Total 790 1810 1030 Balance -344 -383.56 -963.32 Weight 70.5 kg Intake: IV 46 416.44 66.68 Amio Bolus 150 Amiodarone 360 mg In 233.1 Dextrose 5% in Water 200 ml @ 1 MG/MIN 33.333 mls/ hr IV .Q6H [facility] Rx#: [id number] Amiodarone 450 mg In 33.34 66.68 Dextrose 5% in Water 250 ml @ 0.5 MG/MIN 16.667 mls/hr IV .Q15H [facility] Rx#: [id number] CARDIAC OUTPUT 0.9 Sodium 6 Chloride Lactated Ringers 1,000 ml 40 @ 20 mls/hr IV .Q24H [facility] Rx#:[id number] Intake, IV Titration 150 Amount Dextrose 5% in Water 100 150 ml @ 618 mls/hr IV .Q10M [facility] with Amiodarone 150 mg Rx#:[id number] Oral 250 1010 Output: Chest Tube Drainage 140 160 30 Chest Tube Bilateral 100 Mediastinal Chest Tube Right Anterior 40 160 30 Chest Urine 650 1650 1000 Other: Voiding Method Toilet Bedside Commode Diaper # Voids 1 1 # Bowel Movements 1 1 ABP, PAP, CO, CI - Last Documented Arterial Blood Pressure 136/51 Pulmonary Artery Pressure 27/10 Cardiac Output 4.0 Cardiac Index 2.4 - Exam CONSTITUTIONAL: Sitting up to the bedside chair in the intensive care unit, appears comfortable, cooperative, no apparent acute distress. HEENT: Neck is supple, no JVD, no lymphadenopathy. RESPIRATORY: Lungs sounds essentially clear throughout, diminished to her bilateral bases. Respirations are symmetrical and nonlabored. Currently on room air with oxygen saturations 96%. Able to achieve 1000 mL on her incentive spirometry. Strong cough. CARDIOVASCULAR: Regular rhythm and rate. S1 and S2 present, negative for S3, gallop or murmur. Sternum is stable. Palpable peripheral pulses bilaterally. No calf pain or tenderness noted. Heart hugger in place with patient demonstrating appropriate use. Knee-high BRODY hose and sequential compression devices in place to her bilateral lower extremities. GASTROINTESTINAL: Abdomen soft, nontender, nondistended. Active bowel sounds p resent 4 quadrants. Tolerating diet. Passing flatus. No guarding or rigidity. Bowel movement yesterday 01/11/2022. GENITOURINARY: Continues to void. INTEGUMENTARY: Skin is warm and dry with no evidence of clubbing or cyanosis. Midline sternal incision clean dry and well approximated, covered with dry intact dressing. NEUROLOGIC: Cranial nerves II through XII intact. No focal deficits. MUSKULOSKELETAL: Able to move all extremities, strength equal bilaterally, generalized weakness. PSYCHIATRIC: Alert and oriented to person place and time, appropriate affect, intact judgment and insight. INVASIVE LINES AND TUBES: Right pleural chest tube with 20 mL of thin serosanguineous drainage overnight, 290 mL output in the last 24 hours. Atrial and ventricular epicardial pacemaker wires present, and grounded. - - Labs CBC & Chem 7: 01/12/22 05:38 01/12/22 05:38 Labs: Abnormal Lab Results - Last 24 Hours (Table) 01/11/22 01/11/22 01/12/22 Range/Units 16:22 20:39 05:38 RBC 2.54 L (3.80-5.40) m/uL Hgb 8.4 L (11.4-16.0) gm/dL Hct 25.0 L (34.0-46.0) % Plt Count 141 L (150-450) k/uL Sodium (137-145) mmol/L Glucose (74-99) mg/dL POC Glucose (mg/dL) 118 H 125 H (75-99) mg/dL Calcium (8.4-10.2) mg/dL AST (14-36) U/L Total Protein (6.3-8.2) g/dL Albumin (3.5-5.0) g/dL 01/12/22 01/12/22 01/12/22 Range/Units 05:38 07:16 11:38 RBC (3.80-5.40) m/uL Hgb (11.4-16.0) gm/dL Hct (34.0-46.0) % Plt Count (150-450) k/uL Sodium 128 L (137-145) mmol/L Glucose 106 H (74-99) mg/dL POC Glucose (mg/dL) 116 H 112 H (75-99) mg/dL Calcium 7.8 L (8.4-10.2) mg/dL AST 49 H (14-36) U/L Total Protein 4.9 L (6.3-8.2) g/dL Albumin 2.8 L (3.5-5.0) g/dL Assessment and Plan Plan: History of severe mitral regurgitation, status post MVR postoperative day #4, hemodynamically stable on no pressors. The patient is doing well. Paroxysmal atrial fibrillation current rhythm is sinus , the patient is being loaded with amiodarone and the cardiac rhythm remains sinus for now. Post thoracotomy. The patient has still a right-sided chest tube will be removed today. The chest x-ray from today was noted. No evidence of any pneumothorax. The patient continues using incentive spirometer. Chronic diastolic congestive heart failure Obstructive sleep apnea syndrome, not compliant with CPAP. Lifetime nonsmoker Postoperative acute blood loss anemia/thrombocytopenia, expected outcome of surgery and the patient was given a total of 2 units of packed RBC, inguinal stable for now. Hemoglobin today is at 8.4. Plan Will remove the right-sided chest tube. Monitor the cardiac rhythm. Continue amiodarone loading Continue aspirin and Plavix. continue metoprolol 25 mg twice a day Continue using incentive spirometer Continue aspirin and Plavix Continue IV Lasix Monitor sodium level Monitor electrolytes Pain is under adequate control. We'll continue to follow.
[2022-01-12] MEDS: METOPROLOL TARTRATE 5 MG/5 ML VIAL IVP SCH ×2 (14:43→14:44)
[2022-01-12 16:47] LABS: Glucose,Whole Blood 113 mg/dL (75-99)
[2022-01-12 20:19] LABS: Glucose,Whole Blood 117 mg/dL (75-99)
[2022-01-12] MEDS: SENNOSIDES-DOCUSATE SODIUM 1 EACH TAB PO SCH (20:23)
[2022-01-13] MEDS: ACETAMINOPHEN TAB 325 MG TAB PO PRN (02:17)
[2022-01-13 07:01] LABS: Glucose,Whole Blood 98 mg/dL (75-99)
[2022-01-13] MEDS: INSULIN ASPART (NovoLOG) 100 UNIT/ML VIAL SQ SCH ×4 (07:04→20:31)
[2022-01-13] MEDS: PANTOPRAZOLE 40 MG TABLET PO SCH (07:05)
[2022-01-13] MEDS ORDERED: SENNOSIDES-DOCUSATE SODIUM 1 EACH TAB PO PRN (07:14)
--- NOTE | 2022-01-13 07:59 | XR ---
EXAMINATION TYPE: XR chest 2V DATE OF EXAM: 01/13/2022 COMPARISON: 01/12/2022 INDICATION: Postcardiac surgery TECHNIQUE: Single frontal view of the chest is obtained. FINDINGS: The heart size is normal. The pulmonary vasculature is normal. Small left pleural effusion is present. Previous left apical pneumothorax not identified on current exam. 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 Left pleural effusion.
[2022-01-13] MEDS: IPRATROPIUM-ALBUTEROL 3 ML NEB INHALATION SCH ×4 (08:27→20:52)
[2022-01-13 08:31] LABS: African American GFR (CKD) >90 (>60 ml/min/1.73 sqM); Anion Gap 8 mmol/L; Blood Urea Nitrogen 14 mg/dL (7-17); Calcium 7.9 mg/dL (8.4-10.2); Carbon Dioxide 27 mmol/L (22-30); Chloride 98 mmol/L (98-107); Glucose 87 mg/dL (74-99); Magnesium 2.3 mg/dL (1.6-2.3); Non-African American GFR(CKD) >90 (>60 ml/min/1.73 sqM); Potassium 3.2 mmol/L (3.5-5.1); Sodium 133 mmol/L (137-145)
[2022-01-13 08:35] LABS: HCT 27.7 % (34.0-46.0); HGB 9.1 gm/dL (11.4-16.0); MCHC 32.8 g/dL (31.0-37.0); MCV 100.7 fL (80.0-100.0); Macrocytosis Slight; Mean Platelet Volume 8.1; Platelet Count 252 k/uL (150-450); RBC 2.75 m/uL (3.80-5.40); RDW 15.1 % (11.5-15.5); WBC 8.3 k/uL (3.8-10.6)
[2022-01-13] MEDS ORDERED: CALCIUM GLUCONATE 2 GM in SODIUM CHLORIDE 0.9% 100 ML IVPB ONE (08:47)
[2022-01-13] MEDS: AMIODARONE 200 MG TAB PO SCH (08:48)
[2022-01-13] MEDS: MULTIVITAMINS, THERA 1 EACH TAB PO SCH (08:48)
[2022-01-13] MEDS: FUROSEMIDE 10 MG/ML 2 ML VIAL IV SCH ×2 (08:48→15:50)
[2022-01-13] MEDS: ATORVASTATIN 40 MG TAB PO SCH (08:48)
[2022-01-13] MEDS: METOPROLOL TARTRATE 25 MG TAB PO SCH ×2 (08:48→20:38)
[2022-01-13] MEDS: guaiFENesin 600 MG TABLET.ER PO SCH ×2 (08:48→20:38)
[2022-01-13] MEDS: ASPIRIN 81 MG PO SCH (08:48)
[2022-01-13] MEDS: HEPARIN SODIUM,PORCINE/PF 5,000 UNIT/0.5 ML SYRINGE SQ SCH ×3 (08:48→23:28)
[2022-01-13] MEDS ORDERED: POTASSIUM CHLORIDE ER 20 MEQ TAB.ER PO SCH (09:00)
--- NOTE | 2022-01-13 09:00 | P.PN ---
Subjective Progress Note Date: 01/13/22 Principal diagnosis: Severe mitral regurgitation. Previous medical history of chronic diastolic heart failure, never smoker with mild lung disease, remote history of pneumonia, obstructive sleep apnea without CPAP use, arthritis. Vaccinated and boosted against Covid POD #5 mitral valve repair with #26 mm physio-2 ring, ligation of the left atrial appendage, epi-aortic ultrasound, and intraoperative transesophageal echocardiogram performed by anesthesia Postoperative acute blood loss anemia and thrombocytopenia, expected given hemodilution and cardiopulmonary bypass pump Postoperative paroxysmal atrial fibrillation, known common occurrence after cardiac surgery The patient was seen and examined this morning sitting up in a recliner on the cardiac stepdown unit in no acute distress. She states pain is most controlled with current medication regimen, denies shortness of breath. Her only real complaint is lack of sleep. Remains in sinus rhythm, hemodynamically stable. Remains on amiodarone for A. fib prophylaxis. Patient has been ambulatory without difficulty. No new concerns. Objective - Vital Signs Vital signs: Vital Signs Temp 97.6 F 01/13/22 04:00 Pulse 84 01/13/22 08:38 Resp 20 01/13/22 04:00 BP 117/70 01/13/22 04:00 Pulse Ox 95 01/13/22 04:00 Intake & Output 01/12/22 01/13/22 01/13/22 18:59 06:59 18:59 Intake Total 246.68 800 236 Output Total 1030 Balance -783.32 800 236 Weight 68.9 kg Intake: IV 66.68 Amiodarone 450 mg In 66.68 Dextrose 5% in Water 250 ml @ 0.5 MG/MIN 16.667 mls/hr IV .Q15H [facility] Rx#: [id number] Oral 180 800 236 Output: Chest Tube Drainage 30 Chest Tube Right Anterior 30 Chest Urine 1000 Other: Voiding Method Bedside Commode Bedside Commode Diaper Diaper # Voids 1 1 # Bowel Movements 1 ABP, PAP, CO, CI - Last Documented Arterial Blood Pressure 136/51 Pulmonary Artery Pressure 27/10 Cardiac Output 4.0 Cardiac Index 2.4 - Exam CONSTITUTIONAL: Appears comfortable, cooperative, no acute distress RESPIRATORY: Lungs sounds diminished bilaterally. Respirations even, nonlabored. Currently on room air with oxygen saturation 95%. Able to achieve 1000 mL on incentive spirometry. Strong cough. CARDIOVASCULAR: S1, S2 present. Regular rate and rhythm, sinus rhythm on telemetry. Sternum stable. Palpable peripheral pulses bilaterally. Trace bilateral lower extremity edema present. No calf pain or tenderness noted. H eart hugger in place with patient demonstrating appropriate use. Antiembolism stockings, SCDs present. GASTROINTESTINAL: Abdomen soft, nontender, nondistended. Active bowel sounds present 4 quadrants. Tolerating diet. Positive bowel movement GENITOURINARY: Continues to void INTEGUMENTARY: Skin is warm and dry with evidence of good perfusion. Anterior chest incision well approximated and covered with dry intact dressing. NEUROLOGIC: Cranial nerves II through XII intact MUSKULOSKELETAL: Able to move all extremities, strength equal bilaterally, gait normal PSYCHIATRIC: Alert and oriented to person place and time, appropriate affect, intact judgment and insight INVASIVE LINES AND TUBES: A/V epicardial pacemaker wires present, grounded - Allied health notes Allied health notes reviewed: nursing - Labs CBC & Chem 7: 01/13/22 07:57 01/13/22 07:57 Labs: Abnormal Lab Results - Last 24 Hours (Table) 01/12/22 01/12/22 01/12/22 Range/Units 11:38 16:43 20:18 RBC (3.80-5.40) m/uL Hgb (11.4-16.0) gm/dL Hct (34.0-46.0) % MCV (80.0-100.0) fL Sodium (137-145) mmol/L Potassium (3.5-5.1) mmol/L POC Glucose (mg/dL) 112 H 113 H 117 H (75-99) mg/dL Calcium (8.4-10.2) mg/dL 01/13/22 01/13/22 Range/Units 07:57 07:57 RBC 2.75 L (3.80-5.40) m/uL Hgb 9.1 L (11.4-16.0) gm/dL Hct 27.7 L (34.0-46.0) % MCV 100.7 H (80.0-100.0) fL Sodium 133 L (137-145) mmol/L Potassium 3.2 L (3.5-5.1) mmol/L POC Glucose (mg/dL) (75-99) mg/dL Calcium 7.9 L (8.4-10.2) mg/dL - Imaging and Cardiology Chest x-ray: report reviewed, image reviewed Assessment and Plan Assessment: 1. Severe mitral regurgitation, status post MVR 2. History of chronic diastolic heart failure 3. Never smoker with mild lung disease, preoperative FEV1 68% of predicted 4. Remote history of pneumonia 5. Obstructive sleep apnea without CPAP use 6. Arthritis 7. Vaccinated and boosted against Covid 8. Postoperative acute blood loss anemia and thrombocytopenia, expected 9. Postoperative paroxysmal atrial fibrillation, known common occurrence after cardiac surgery Plan: 1. Continue aspirin, statin, beta oli therapy. Will increase beta oli therapy as tolerated. Continue lisinopril for afterload reduction 2. Continue amiodarone for A. fib prophylaxis 3. Encourage incentive spirometry 10 times every hour while awake. Bronchodilators per pulmonology 4. Increase activity, ambulate as tolerated. PT/OT/cardiac rehab following 5. GI/DVT prophylaxis 6. Pain control with current medication regimen 7. Insulin management per primary care service. Patient is not diabetic, preoperative hemoglobin A1c 5.2%, however patient does need tight blood sugar control to prevent infection and promote sternal union 8. Will monitor daily labs and x-rays. Electrolyte replacement per protocol. Continue IV Lasix 9. Will discontinue epicardial pacemaker wires tomorrow 10. Strict accurate intake and output. Daily weights. Patient to shower daily 11. Discharge planning in progress. Anticipate discharge to home with home care in the next 24-48 hours 12. More recommendations to follow Time with Patient: Greater than 30
[2022-01-13 11:16] LABS: Glucose,Whole Blood 104 mg/dL (75-99)
[2022-01-13] MEDS: POTASSIUM CHLORIDE ER 20 MEQ TAB.ER PO SCH ×2 (13:02→20:38)
[2022-01-13] MEDS: lisinopriL 5 MG TAB PO SCH (13:29)
--- NOTE | 2022-01-13 14:00 | P.PN ---
<Suha Cancino M - Last Filed: 01/13/22 13:53> Subjective Progress Note Date: 01/13/22 Principal diagnosis: Severe mitral regurgitation On 01/13/2022 patient seen in follow-up. Today's postoperative day #5, status post mitral valve repair. Patient had runs of atrial fibrillation, and patient has been loaded with amiodarone currently in sinus mechanism. Currently on amiodarone 200 mg daily, metoprolol 25 mg twice a day, she is on subcu heparin 5000 units every 8 hours. Hemodynamically she has been stable, breathing comfortably, room air pulse ox is 96%. She's been working on incentive spirometer, she is achieving 1000 mL on the today, midsternal incisions clean dry and intact, chest tube sites have been covered with dressings, and there also clean dry and intact. No fever or chills. Today's labs have been reviewed, white blood cell count of 8.3, hemoglobin is 9.1, sodium is 133, potassium is 3.2, the rest of electrolytes and renal profile were unremarkable. Objective - Vital Signs Vital signs: Vital Signs Temp 98.1 F 01/13/22 12:00 Pulse 89 01/13/22 12:00 Resp 18 01/13/22 12:00 BP 99/63 01/13/22 12:00 Pulse Ox 96 01/13/22 12:00 Intake & Output 01/12/22 01/13/22 01/13/22 18:59 06:59 18:59 Intake Total 246.68 800 236 Output Total 1030 2 Balance -783.32 800 234 Weight 68.9 kg Intake: IV 66.68 Amiodarone 450 mg In 66.68 Dextrose 5% in Water 250 ml @ 0.5 MG/MIN 16.667 mls/hr IV .Q15H [facility] Rx#: [id number] Oral 180 800 236 Output: Chest Tube Drainage 30 Chest Tube Right Anterior 30 Chest Urine 1000 2 Other: Voiding Method Bedside Commode Bedside Commode Bedside Commode Diaper Diaper Diaper # Voids 1 1 # Bowel Movements 1 ABP, PAP, CO, CI - Last Documented Arterial Blood Pressure 136/51 Pulmonary Artery Pressure 27/10 Cardiac Output 4.0 Cardiac Index 2.4 - Exam GENERAL EXAM: Alert, very pleasant, 71-year-old white female, sitting up in the recliner, breathing comfortably, room air pulse ox is 96% comfortable in no apparent distress. HEAD: Normocephalic/atraumatic. EYES: Normal reaction of pupils, equal size. Conjunctiva pink, sclera white. NOSE: Clear with pink turbinates. THROAT: No erythema or exudates. NECK: No masses, no JVD, no thyroid enlargement, no adenopathy. CHEST: No chest wall deformity. Symmetrical expansion. Midsternal incision is clean dry and intact, chest tube sites are clean dry and intact LUNGS: Equal air entry with no crackles, wheeze, rhonchi or dullness. CVS: Regular rate and rhythm, normal S1 and S2, no gallops, no murmurs, no rubs ABDOMEN: Soft, nontender. No hepatosplenomegaly, normal bowel sounds, no guarding or rigidity. EXTREMITIES: No clubbing, no edema, no cyanosis, 2+ pulses and upper and lower extremities. MUSCULOSKELETAL: Muscle strength and tone normal. SPINE: No scoliosis or deformity SKIN: No rashes CENTRAL NERVOUS SYSTEM: Alert and oriented -3. No focal deficits, tone is normal in all 4 extremities. PSYCHIATRIC: Alert and oriented -3. Appropriate affect. Intact judgment and insight. - Labs CBC & Chem 7: 01/13/22 07:57 01/13/22 07:57 Labs: Abnormal Lab Results - Last 24 Hours (Table) 01/12/22 01/12/22 01/13/22 Range/Units 16:43 20:18 07:57 RBC 2.75 L (3.80-5.40) m/uL Hgb 9.1 L (11.4-16.0) gm/dL Hct 27.7 L (34.0-46.0) % MCV 100.7 H (80.0-100.0) fL Sodium (137-145) mmol/L Potassium (3.5-5.1) mmol/L POC Glucose (mg/dL) 113 H 117 H (75-99) mg/dL Calcium (8.4-10.2) mg/dL 01/13/22 01/13/22 Range/Units 07:57 11:15 RBC (3.80-5.40) m/uL Hgb (11.4-16.0) gm/dL Hct (34.0-46.0) % MCV (80.0-100.0) fL Sodium 133 L (137-145) mmol/L Potassium 3.2 L (3.5-5.1) mmol/L POC Glucose (mg/dL) 104 H (75-99) mg/dL Calcium 7.9 L (8.4-10.2) mg/dL Assessment and Plan Plan: Assessment: #1. Severe mitral regurgitation, status post surgical mitral valve repair, postoperative day #5, hemodynamically stable, no pressors #2. Paroxysmal atrial fibrillation, currently in sinus mechanism, patient has been loaded with amiodarone and beta blockers #3. Chronic diastolic congestive heart failure #4. Obstructive sleep apnea noncompliant with CPAP #5. Lifetime nonsmoker #6. Postoperative acute blood loss anemia and thrombocytopenia, expected outcome of surgery Plan: Patient is doing well Hemodynamically stable, remains in sinus mechanism Rate control medications, anti-coagulants per CT surgery Encourage ambulation, encouraged to breathing and coughing Continue Lasix, continue aspirin and Plavix Chest x-ray has been reviewed Labs have been reviewed Anticipate discharge home tomorrow I performed a history & physical examination of the patient and discussed their management with my nurse practitioner, Suha Cancino. I reviewed the nurse practitioner's note and agree with the documented findings and plan of care. Lung sounds are positive for dim breath sounds throughout the lung ingram. The findings and the impression was discussed with the patient. I attest to the doc umentation by the nurse practitioner. I have personally seen and examined the patient, performed the documentation and the assessment and plan as written. Number of minutes spent on the visit: [10] Time with Patient: Less than 30 <Hazel Lopez - Last Filed: 01/13/22 14:21> Objective - Vital Signs Vital signs: Vital Signs Temp 98.1 F 01/13/22 12:00 Pulse 89 01/13/22 12:00 Resp 18 01/13/22 12:00 BP 99/63 01/13/22 12:00 Pulse Ox 96 01/13/22 12:00 Intake & Output 01/12/22 01/13/22 01/13/22 18:59 06:59 18:59 Intake Total 246.68 800 236 Output Total 1030 2 Balance -783.32 800 234 Weight 68.9 kg Intake: IV 66.68 Amiodarone 450 mg In 66.68 Dextrose 5% in Water 250 ml @ 0.5 MG/MIN 16.667 mls/hr IV .Q15H [facility] Rx#: [id number] Oral 180 800 236 Output: Chest Tube Drainage 30 Chest Tube Right Anterior 30 Chest Urine 1000 2 Other: Voiding Method Bedside Commode Bedside Commode Bedside Commode Diaper Diaper Diaper # Voids 1 1 # Bowel Movements 1 ABP, PAP, CO, CI - Last Documented Arterial Blood Pressure 136/51 Pulmonary Artery Pressure 27/10 Cardiac Output 4.0 Cardiac Index 2.4 - Labs CBC & Chem 7: 01/13/22 07:57 01/13/22 07:57 Labs: Abnormal Lab Results - Last 24 Hours (Table) 01/12/22 01/12/22 01/13/22 Range/Units 16:43 20:18 07:57 RBC 2.75 L (3.80-5.40) m/uL Hgb 9.1 L (11.4-16.0) gm/dL Hct 27.7 L (34.0-46.0) % MCV 100.7 H (80.0-100.0) fL Sodium (137-145) mmol/L Potassium (3.5-5.1) mmol/L POC Glucose (mg/dL) 113 H 117 H (75-99) mg/dL Calcium (8.4-10.2) mg/dL 01/13/22 01/13/22 Range/Units 07:57 11:15 RBC (3.80-5.40) m/uL Hgb (11.4-16.0) gm/dL Hct (34.0-46.0) % MCV (80.0-100.0) fL Sodium 133 L (137-145) mmol/L Potassium 3.2 L (3.5-5.1) mmol/L POC Glucose (mg/dL) 104 H (75-99) mg/dL Calcium 7.9 L (8.4-10.2) mg/dL Assessment and Plan Plan: This is a joint evaluated was done along with a nurse practitioner. This evaluation was done and more than 20 minutes. I tested information above and I was actively involved in decision-making assessment and plan on care of this patient. In summary, the patient is recovering from her cardiac surgery. She is postop day #5. Chest is able to move. Review the chest x-ray. We'll continue diuretics. We'll continue aspirin and Plavix. Cardiac rhythm remains sinus. Continue management of atrial fibrillation prophylaxis post cardiac surgery. Increased mobility and ambulation. We'll continue to follow.
--- NOTE | 2022-01-13 14:12 | P.PN ---
Subjective Progress Note Date: 01/13/22 HISTORY OF PRESENT ILLNESS: This is a 71-year-old female who follows in the office with Dr. Flowers. Patient is status post mitral valve repair. Patient examined this morning. She is sitting up in the chair. She denies chest pain or pressure. Telemetry reveals sinus mechanism. Vital signs are stable. PHYSICAL EXAM: VITAL SIGNS: Reviewed. GENERAL: Well-developed in no acute distress. NECK: Supple. No JVD or thyromegaly LUNGS: Respirations even and unlabored. Lungs essentially clear to auscultation bilaterally. HEART: Regular rate and rhythm. S1 and S2 heard. EXTREMITIES: Normal range of motion. No clubbing or cyanosis. Peripheral pulses intact. No lower extremity edema ASSESSMENT: Severe mitral regurgitation, status post mitral valve repair Obstructive sleep apnea without CPAP use Postoperative paroxysmal atrial fibrillation, currently maintaining sinus mechanism Chronic heart failure with preserved ejection fraction PLAN: Continue postoperative care per cardiothoracic surgery Increase activity as tolerated Encourage use of incentive spirometer Continue current cardiac medications Further recommendations pending patient's course Nurse practitioner note has been reviewed by physician. Signing provider agrees with the documented findings, assessment, and plan of care. Objective - Vital Signs Vital signs: Vital Signs Temp 98.1 F 01/13/22 12:00 Pulse 89 01/13/22 12:00 Resp 18 01/13/22 12:00 BP 99/63 01/13/22 12:00 Pulse Ox 96 01/13/22 12:00 Intake & Output 01/12/22 01/13/22 01/13/22 18:59 06:59 18:59 Intake Total 246.68 800 236 Output Total 1030 2 Balance -783.32 800 234 Weight 68.9 kg Intake: IV 66.68 Amiodarone 450 mg In 66.68 Dextrose 5% in Water 250 ml @ 0.5 MG/MIN 16.667 mls/hr IV [facility] Rx#: [id number] Oral 180 800 236 Output: Chest Tube Drainage 30 Chest Tube Right Anterior 30 Chest Urine 1000 2 Other: Voiding Method Bedside Commode Bedside Commode Bedside Commode Diaper Diaper Diaper # Voids 1 1 # Bowel Movements 1 ABP, PAP, CO, CI - Last Documented Arterial Blood Pressure 136/51 Pulmonary Artery Pressure 27/10 Cardiac Output 4.0 Cardiac Index 2.4 - Labs CBC & Chem 7: 01/13/22 07:57 01/13/22 07:57 Labs: Abnormal Lab Results - Last 24 Hours (Table) 01/12/22 01/12/22 01/13/22 Range/Units 16:43 20:18 07:57 RBC 2.75 L (3.80-5.40) m/uL Hgb 9.1 L (11.4-16.0) gm/dL Hct 27.7 L (34.0-46.0) % MCV 100.7 H (80.0-100.0) fL Sodium (137-145) mmol/L Potassium (3.5-5.1) mmol/L POC Glucose (mg/dL) 113 H 117 H (75-99) mg/dL Calcium (8.4-10.2) mg/dL 01/13/22 01/13/22 Range/Units 07:57 11:15 RBC (3.80-5.40) m/uL Hgb (11.4-16.0) gm/dL Hct (34.0-46.0) % MCV (80.0-100.0) fL Sodium 133 L (137-145) mmol/L Potassium 3.2 L (3.5-5.1) mmol/L POC Glucose (mg/dL) 104 H (75-99) mg/dL Calcium 7.9 L (8.4-10.2) mg/dL
[2022-01-13 16:55] LABS: Glucose,Whole Blood 105 mg/dL (75-99)
--- NOTE | 2022-01-13 19:06 | P.PN ---
Subjective Progress Note Date: 01/13/22 This is 71-year-old female patient of Dr. Agee who presented for an elective mitral valve replacement with Dr. Maher on 01/08/2022. Patient has a past medical history of congestive heart failure with dyspnea and was found to have severe mitral valve regurg. Additional medical history includes arthritis and anxiety. Patient is currently on mechanical ventilation postoperatively in the intensive care unit. Patient is currently sedated with propofol. Current vent settings before meals controlled rate of 14, tidal volume 450, FiO2 100% and PEEP of 5. Mediastinal and left-sided Chest tubes in place. Midline dressing is clean dry and intact. Cardiothoracic, critical care and cardiology services are following. Thank you for this consultation we will continue to follow patient closely throughout stay On 01/09/2022 patient was seen and examined in the ICU she is alert and oriented 3 in no apparent stress is extubated yesterday and is tolerating well, vital exam reveals a temperature of 99.5 pulse 80 respiration 12 blood pressure 111/57 pulse ox 92% on 2 L nasal cannula, patient is complaining of pain at the surgical site otherwise she denies any complaints. Patient was resumed on i nsulin and her glucose level is well-controlled at this time, will continue to follow closely. On 01/10/2022 patient is alert and oriented 3. Patient remains extubated resting comfortably in chair in intensive care unit. Patient reports some discomfort. Patient will be transitioned to sliding scale coverage for insulin. Heart rate 74, respiratory rate 20, blood pressure 120/61, oxygen saturation 97% on 2 L. Patient denies any nausea vomiting or diarrhea. Patient denies any urinary burning or frequency 01/11/2022 patient is alert and oriented 3. Patient remains in the intensive care unit. [place] has been removed. Patient has one chest tube. Per nursing staff blood sugars have been well controlled. Current temp 98.1, pulse rate 94 and respiratory rate 12, blood pressure 114/64. Patient satting 99% on 2 L On 01/12/2022 patient was seen and examined in the ICU she is alert and oriented 3 in no apparent distress there is no fever or chills no headache or dizziness no chest pain no shortness of breath no cough no nausea or vomiting no abdominal pain no diarrhea and no urinary symptoms, vital examination reveals a temperature of 97.9 pulse 82 respiration 14 blood pressure 132/76 pulse ox 94% on room air, white blood count 9.1 hemoglobin 8.4 platelet count, sodium 128 po tassium 3.6 chloride 98 CO2 29 BUN 17 creatinine 0.69 On 01/13/2022 patient was seen and examined on the telemetry floor she is alert and oriented 3 in no apparent distress, vital examination reveals a temperature of 98.1 pulse 89 respiration 18 blood pressure 99/63 pulse ox 96% on 2 L nasal cannula, white blood count is 8.3 hemoglobin 9.1 platelet count 252 sodium 133 potassium 3.2 chloride 98 CO2 27 BUN 14 creatinine 0.6 patient denies any chest pain or shortness of breath she is using incentive spirometry, patient is followed by pulmonary and cardiology she was started on amiodarone IV Objective - Vital Signs Vital signs: Vital Signs Temp 98.0 F 01/13/22 08:00 Pulse 84 01/13/22 11:51 Resp 18 01/13/22 08:00 BP 108/68 01/13/22 08:00 Pulse Ox 96 01/13/22 08:00 Intake & Output 01/12/22 01/13/22 01/13/22 18:59 06:59 18:59 Intake Total 246.68 800 236 Output Total 1030 2 Balance -783.32 800 234 Weight 68.9 kg Intake: IV 66.68 Amiodarone 450 mg In 66.68 Dextrose 5% in Water 250 ml @ 0.5 MG/MIN 16.667 mls/hr IV .Q15H [facility] Rx#: [id number] Oral 180 800 236 Output: Chest Tube Drainage 30 Chest Tube Right Anterior 30 Chest Urine 1000 2 Other: Voiding Method Bedside Commode Bedside Commode Bedside Commode Diaper Diaper Diaper # Voids 1 1 # Bowel Movements 1 ABP, PAP, CO, CI - Last Documented Arterial Blood Pressure 136/51 Pulmonary Artery Pressure 27/10 Cardiac Output 4.0 Cardiac Index 2.4 - Exam Head normocephalic Neck supple Lungs clear to auscultation bilaterally no wheezing or crackles Heart regular rate and rhythm S1-S2, no rub or gallop. Midline dressing clean dry and intact Abdomen is soft nontender nondistended positive bowel sounds no hepatosplenomegaly Extremities no edema Neuro - Labs CBC & Chem 7: 01/13/22 07:57 01/13/22 07:57 Labs: Abnormal Lab Results - Last 24 Hours (Table) 01/12/22 01/12/22 01/13/22 Range/Units 16:43 20:18 07:57 RBC 2.75 L (3.80-5.40) m/uL Hgb 9.1 L (11.4-16.0) gm/dL Hct 27.7 L (34.0-46.0) % MCV 100.7 H (80.0-100.0) fL Sodium (137-145) mmol/L Potassium (3.5-5.1) mmol/L POC Glucose (mg/dL) 113 H 117 H (75-99) mg/dL Calcium (8.4-10.2) mg/dL 01/13/22 01/13/22 Range/Units 07:57 11:15 RBC (3.80-5.40) m/uL Hgb (11.4-16.0) gm/dL Hct (34.0-46.0) % MCV (80.0-100.0) fL Sodium 133 L (137-145) mmol/L Potassium 3.2 L (3.5-5.1) mmol/L POC Glucose (mg/dL) 104 H (75-99) mg/dL Calcium 7.9 L (8.4-10.2) mg/dL Assessment and Plan Assessment: 1. Status post mitral valve repair on 01/08/[address] Maher. 2. History of severe mitral valve regurg with symptomatic dyspnea 3. History of arthritis 4. History of anxiety Patient remains in the intensive care unit Patient remains on mechanical ventilation and IV sedation Thank you for this consultation we'll continue to follow patient closely throughout stay
[2022-01-13 20:32] LABS: Glucose,Whole Blood 123 mg/dL (75-99)
[2022-01-13] MEDS: MELATONIN 3 MG TABLET PO SCH (20:38)
[2022-01-13] MEDS ORDERED: DEXTROSE 5% IN WATER 100 ML with AMIODARONE 150 MG IV ONE (21:36)
[2022-01-13] MEDS ORDERED: AMIODARONE IN DEXTROSE,ISO-OSM 150 MG/100 ML PLAST..BAG IV ONE (22:02)
[2022-01-14 06:38] LABS: Glucose,Whole Blood 108 mg/dL (75-99)
--- NOTE | 2022-01-14 06:41 | XR ---
EXAMINATION TYPE: XR chest 2V DATE OF EXAM: 01/14/2022 COMPARISON: Chest x-ray from yesterday and older x-rays. HISTORY: Post open cardiac surgery. TECHNIQUE: Frontal and lateral views of the chest are obtained. FINDINGS: Overlying sternal wires along with epicardial pacer wires and cardiac valvular rings are al l redemonstrated. Persistent small to tiny left greater than right pleural effusions. Cardiac silhouette size is stable and upper limits of normal. Mild central vascular congestion again seen. No pneumothorax seen bilate rally. Underlying dextroconvex scoliosis centered upper lumbar spine redemonstrated . Metallic anchor left humeral head noted on lateral view. IMPRESSION: Small to tiny left greater than right pleural effusions with mild central vascular conge stion redemonstrated. No significant change from most recent x-ray.
[2022-01-14] MEDS: INSULIN ASPART (NovoLOG) 100 UNIT/ML VIAL SQ SCH ×4 (06:51→20:07)
[2022-01-14] MEDS: PANTOPRAZOLE 40 MG TABLET PO SCH (06:52)
[2022-01-14] MEDS: IPRATROPIUM-ALBUTEROL 3 ML NEB INHALATION SCH ×4 (08:08→19:32)
--- NOTE | 2022-01-14 08:46 | P.PN ---
Subjective Progress Note Date: 01/14/22 Principal diagnosis: Severe mitral regurgitation. Previous medical history of chronic diastolic heart failure, never smoker with mild lung disease, remote history of pneumonia, obstructive sleep apnea without CPAP use, arthritis. Vaccinated and boosted against Covid POD #6 mitral valve repair with #26 mm physio-2 ring, ligation of the left atrial appendage, epi-aortic ultrasound, and intraoperative transesophageal echocardiogram performed by anesthesia Postoperative acute blood loss anemia and thrombocytopenia, expected given hemodilution and cardiopulmonary bypass pump Postoperative paroxysmal atrial fibrillation, known common occurrence after cardiac surgery The patient was seen and examined this morning sitting up in a recliner on the cardiac stepdown unit in no acute distress. She states pain is most controlled with current medication regimen, denies shortness of breath. She did have very short burst of A. fib last night which was responsive to amiodarone IV bolus, currently in sinus rhythm, hemodynamically stable. Patient has been ambulatory without difficulty, received first postoperative shower yesterday. No new concerns. Objective - Vital Signs Vital signs: Vital Signs Temp 98.5 F 01/14/22 04:40 Pulse 92 01/14/22 08:08 Resp 18 01/14/22 04:40 BP 110/73 01/14/22 04:40 Pulse Ox 93 L 01/14/22 04:40 Intake & Output 01/13/22 01/14/22 01/14/22 18:59 06:59 18:59 Intake Total 458 240 Output Total 2 Balance 456 240 Weight 67.3 kg Intake: Oral 458 240 Output: Urine 2 Other: Voiding Method Toilet Toilet # Voids 1 ABP, PAP, CO, CI - Last Documented Arterial Blood Pressure 136/51 Pulmonary Artery Pressure 27/10 Cardiac Output 4.0 Cardiac Index 2.4 - Exam CONSTITUTIONAL: Appears comfortable, cooperative, no acute distress RESPIRATORY: Lungs sounds diminished bilaterally. Respirations even, nonlabored. Currently on room air with oxygen saturation 93%. Able to achieve 750 mL on incentive spirometry. Strong cough. CARDIOVASCULAR: S1, S2 present. Regular rate and rhythm, sinus rhythm on telemetry. Sternum stable. Palpable peripheral pulses bilaterally. Trace bilateral lower extremity edema present. No calf pain or tenderness noted. Heart hugger in place with patient demonstrating appropriate use. Antiembolism stockings, SCDs present. GASTROINTESTINAL: Abdomen soft, nontender, nondistended. Active bowel sounds present 4 quadrants. Tolerating diet. Positive bowel movement GENITOURINARY: Continues to void INTEGUMENTARY: Skin is warm and dry with evidence of good perfusion. Anterior chest incision well approximated NEUROLOGIC: Cranial nerves II through XII intact MUSKULOSKELETAL: Able to move all extremities, strength equal bilaterally, gait normal PSYCHIATRIC: Alert and oriented to person place and time, appropriate affect, intact judgment and insight INVASIVE LINES AND TUBES: A/V epicardial pacemaker wires present, grounded - Allied health notes Allied health notes reviewed: nursing - Labs CBC & Chem 7: 01/13/22 07:57 01/13/22 07:57 Labs: Abnormal Lab Results - Last 24 Hours (Table) 01/13/22 01/13/22 01/13/22 Range/Units 07:57 07:57 11:15 RBC 2.75 L (3.80-5.40) m/uL Hgb 9.1 L (11.4-16.0) gm/dL Hct 27.7 L (34.0-46.0) % MCV 100.7 H (80.0-100.0) fL Sodium 133 L (137-145) mmol/L Potassium 3.2 L (3.5-5.1) mmol/L POC Glucose (mg/dL) 104 H (75-99) mg/dL Calcium 7.9 L (8.4-10.2) mg/dL 01/13/22 01/13/22 01/14/22 Range/Units 16:53 20:30 06:36 RBC (3.80-5.40) m/uL Hgb (11.4-16.0) gm/dL Hct (34.0-46.0) % MCV (80.0-100.0) fL Sodium (137-145) mmol/L Potassium (3.5-5.1) mmol/L POC Glucose (mg/dL) 105 H 123 H 108 H (75-99) mg/dL Calcium (8.4-10.2) mg/dL - Imaging and Cardiology Chest x-ray: report reviewed, image reviewed Assessment and Plan Assessment: 1. Severe mitral regurgitation, status post MVR 2. History of chronic diastolic heart failure 3. Never smoker with mild lung disease, preoperative FEV1 68% of predicted 4. Remote history of pneumonia 5. Obstructive sleep apnea without CPAP use 6. Arthritis 7. Vaccinated and boosted against Covid 8. Postoperative acute blood loss anemia and thrombocytopenia, expected 9. Postoperative paroxysmal atrial fibrillation, known common occurrence after cardiac surgery Plan: 1. Continue aspirin, statin, beta oli therapy. Will increase beta oli therapy as tolerated. Continue lisinopril for afterload reduction 2. Continue amiodarone for A. fib prophylaxis 3. Encourage incentive spirometry 10 times every hour while awake. Bronchodilators per pulmonology 4. Increase activity, ambulate as tolerated. PT/OT/cardiac rehab following 5. GI/DVT prophylaxis 6. Pain control with current medication regimen 7. Insulin management per primary care service. Patient is not diabetic, preoperative hemoglobin A1c 5.2%, however patient does need tight blood sugar control to prevent infection and promote sternal union 8. Will monitor daily labs and x-rays. Electrolyte replacement per protocol. Continue IV Lasix 9. Will discontinue epicardial pacemaker wires today 10. Strict accurate intake and output. Daily weights. Patient to shower daily 11. Discharge planning in progress. Anticipate discharge to home with home care in the next 24 hours 12. More recommendations to follow
[2022-01-14] MEDS: HEPARIN SODIUM,PORCINE/PF 5,000 UNIT/0.5 ML SYRINGE SQ SCH (08:58)
[2022-01-14] MEDS: AMIODARONE 200 MG TAB PO SCH (08:58)
[2022-01-14] MEDS: ATORVASTATIN 40 MG TAB PO SCH (08:58)
[2022-01-14] MEDS: MULTIVITAMINS, THERA 1 EACH TAB PO SCH (08:58)
[2022-01-14] MEDS: ASPIRIN 81 MG PO SCH (08:59)
[2022-01-14] MEDS: guaiFENesin 600 MG TABLET.ER PO SCH ×2 (08:59→20:17)
[2022-01-14] MEDS: FUROSEMIDE 10 MG/ML 2 ML VIAL IV SCH ×2 (08:59→16:49)
[2022-01-14] MEDS: METOPROLOL TARTRATE 25 MG TAB PO SCH ×2 (08:59→20:17)
[2022-01-14] MEDS: POTASSIUM CHLORIDE ER 20 MEQ TAB.ER PO SCH ×2 (08:59→20:17)
[2022-01-14 09:43] LABS: Basophils % (A) 0 %; Eosinophils # (A) 0.2 k/uL (0-0.7); Eosinophils % (A) 2 %; HCT 28.6 % (34.0-46.0); HGB 9.2 gm/dL (11.4-16.0); Hypochromasia Slight; Lymphocytes # (A) 1.4 k/uL (1.0-4.8); Lymphocytes % (A) 16 %; MCH 32.1 pg (25.0-35.0); MCHC 32.2 g/dL (31.0-37.0); MCV 99.8 fL (80.0-100.0); Macrocytosis Slight; Mean Platelet Volume 8.2; Monocytes # (A) 0.7 k/uL (0-1.0); Monocytes % (A) 8 %; Neutrophils # (A) 6.3 k/uL (1.3-7.7); Neutrophils % (A) 72 %; Platelet Count 273 k/uL (150-450); RBC 2.86 m/uL (3.80-5.40); RDW 14.9 % (11.5-15.5); WBC 8.8 k/uL (3.8-10.6)
[2022-01-14 09:47] LABS: ALT 26 U/L (4-34); AST 37 U/L (14-36); African American GFR (CKD) >90 (>60 ml/min/1.73 sqM); Albumin 2.9 g/dL (3.5-5.0); Alkaline Phosphatase 65 U/L (38-126); Anion Gap 4 mmol/L; Blood Urea Nitrogen 13 mg/dL (7-17); Calcium 8.4 mg/dL (8.4-10.2); Carbon Dioxide 27 mmol/L (22-30); Chloride 102 mmol/L (98-107); Glucose 119 mg/dL (74-99); Non-African American GFR(CKD) >90 (>60 ml/min/1.73 sqM); Potassium 4.2 mmol/L (3.5-5.1); Sodium 133 mmol/L (137-145); Total Protein 5.4 g/dL (6.3-8.2)
[2022-01-14] MEDS: lisinopriL 5 MG TAB PO SCH (11:23)
[2022-01-14 12:10] LABS: Glucose,Whole Blood 111 mg/dL (75-99)
--- NOTE | 2022-01-14 13:11 | P.PN ---
<Krysten Jordan - Last Filed: 01/14/22 13:04> Subjective Progress Note Date: 01/14/22 Principal diagnosis: Severe mitral regurgitation, status post repair The patient is seen today 01/14/2022 in follow-up on the selective care unit. She is currently sitting up in a chair at the bedside. Awake and alert in no acute distress. This is day #6 status post mitral valve repair. She has had issues with atrial fibrillation and is currently in sinus rhythm. She's been maintained on amiodarone, metoprolol and anticoagulated with Eliquis. Chest x- ray reveals small tiny left greater than right pleural effusions with mild central vascular congestion. No significant change compared to previous. She is maintaining good O2 saturations in the mid 90s on room air. White count 8.8. Hemoglobin 9.2. Platelet count 273. Sodium 133. Potassium 4.2. BUN 13. Creatinine 0.61. AST 37. ALT 26. Objective - Vital Signs Vital signs: Vital Signs Temp 97.9 F 01/14/22 11:35 Pulse 88 01/14/22 12:02 Resp 16 01/14/22 11:35 BP 113/69 01/14/22 11:35 Pulse Ox 95 01/14/22 11:35 Intake & Output 01/13/22 01/14/22 01/14/22 18:59 06:59 18:59 Intake Total 458 240 578 Output Total 2 Balance 456 240 578 Weight 67.3 kg Intake: Oral 458 240 578 Output: Urine 2 Other: Voiding Method Toilet Toilet Toilet # Voids 1 1 ABP, PAP, CO, CI - Last Documented Arterial Blood Pressure 136/51 Pulmonary Artery Pressure 27/10 Cardiac Output 4.0 Cardiac Index 2.4 - Exam GENERAL EXAM: Alert, very pleasant, 71-year-old male patient, sitting up in the recliner, on room air, comfortable in no apparent distress. HEAD: Normocephalic/atraumatic. EYES: Normal reaction of pupils, equal size. Conjunctiva pink, sclera white. NOSE: Clear with pink turbinates. THROAT: No erythema or exudates. NECK: No masses, no JVD, no thyroid enlargement, no adenopathy. CHEST: No chest wall deformity. Symmetrical expansion. Midsternal incision is clean dry and intact, chest tube sites are clean dry and intact LUNGS: Equal air entry with faint crackles in posterior bases left greater than right. CVS: Regular rate and rhythm, normal S1 and S2, no gallops, no murmurs, no rubs ABDOMEN: Soft, nontender. No hepatosplenomegaly, normal bowel sounds, no guarding or rigidity. EXTREMITIES: No clubbing, no edema, no cyanosis, 2+ pulses and upper and lower extremities. MUSCULOSKELETAL: Muscle strength and tone normal. SPINE: No scoliosis or deformity SKIN: No rashes CENTRAL NERVOUS SYSTEM: No focal deficits, tone is normal in all 4 extremities. PSYCHIATRIC: Alert and oriented -3. Appropriate affect. Intact judgment and insight. - Labs CBC & Chem 7: 01/14/22 08:46 01/14/22 08:46 Labs: Abnormal Lab Results - Last 24 Hours (Table) 01/13/22 01/13/22 01/14/22 Range/Units 16:53 20:30 06:36 RBC (3.80-5.40) m/uL Hgb (11.4-16.0) gm/dL Hct (34.0-46.0) % Sodium (137-145) mmol/L Glucose (74-99) mg/dL POC Glucose (mg/dL) 105 H 123 H 108 H (75-99) mg/dL AST (14-36) U/L Total Protein (6.3-8.2) g/dL Albumin (3.5-5.0) g/dL 01/14/22 01/14/22 01/14/22 Range/Units 08:46 08:46 12:06 RBC 2.86 L (3.80-5.40) m/uL Hgb 9.2 L (11.4-16.0) gm/dL Hct 28.6 L (34.0-46.0) % Sodium 133 L (137-145) mmol/L Glucose 119 H (74-99) mg/dL POC Glucose (mg/dL) 111 H (75-99) mg/dL AST 37 H (14-36) U/L Total Protein 5.4 L (6.3-8.2) g/dL Albumin 2.9 L (3.5-5.0) g/dL Assessment and Plan Assessment: 1 Symptomatic severe mitral regurgitation, status post mitral valve repair with a #26 Physio II ring. Postoperative day #6. 2 Thrombocytopenia, current platelets 93,000 2 units of platelets on hold. Status post 2 units of packed red blood cells. 2 units on hold. 3 History of arthritis 4 Paroxysmal atrial fibrillation, anticoagulated with Eliquis Plan: The patient was seen and evaluated Chest x-ray, labs reviewed Stable and on room air Intake regulated with Eliquis Probable home in the a.m. We will continue to follow I, the cosigning physician, performed a history & physical examination of the patient. Lungs sounds with faint crackles in the posterior bases left greater than right. Maintaining good O2 saturations in the 90s on room air. The mechanical ventilator. I discussed the assessment and plan of care with my nurse practitioner, Krysten Jordan. I attest to the above note as dictated by her. I have personally seen and examined the patient, performed the documentation and the assessment and plan as written. Number of minutes spent on the visit: 10. <Hazel Lopez - Last Filed: 01/14/22 18:03> Objective - Vital Signs Vital signs: Vital Signs Temp 98.6 F 01/14/22 16:00 Pulse 98 01/14/22 16:00 Resp 16 01/14/22 16:00 BP 122/71 01/14/22 16:00 Pulse Ox 96 01/14/22 16:00 Intake & Output 01/13/22 01/14/22 01/14/22 18:59 06:59 18:59 Intake Total 458 240 814 Output Total 2 Balance 456 240 814 Weight 67.3 kg Intake: Oral 458 240 814 Output: Urine 2 Other: Voiding Method Toilet Toilet Toilet # Voids 1 1 ABP, PAP, CO, CI - Last Documented Arterial Blood Pressure 136/51 Pulmonary Artery Pressure 27/10 Cardiac Output 4.0 Cardiac Index 2.4 - Labs CBC & Chem 7: 01/14/22 08:46 01/14/22 08:46 Labs: Abnormal Lab Results - Last 24 Hours (Table) 01/13/22 01/14/22 01/14/22 Range/Units 20:30 06:36 08:46 RBC 2.86 L (3.80-5.40) m/uL Hgb 9.2 L (11.4-16.0) gm/dL Hct 28.6 L (34.0-46.0) % Sodium (137-145) mmol/L Glucose (74-99) mg/dL POC Glucose (mg/dL) 123 H 108 H (75-99) mg/dL AST (14-36) U/L Total Protein (6.3-8.2) g/dL Albumin (3.5-5.0) g/dL 01/14/22 01/14/22 01/14/22 Range/Units 08:46 12:06 16:36 RBC (3.80-5.40) m/uL Hgb (11.4-16.0) gm/dL Hct (34.0-46.0) % Sodium 133 L (137-145) mmol/L Glucose 119 H (74-99) mg/dL POC Glucose (mg/dL) 111 H 143 H (75-99) mg/dL AST 37 H (14-36) U/L Total Protein 5.4 L (6.3-8.2) g/dL Albumin 2.9 L (3.5-5.0) g/dL Assessment and Plan Assessment: This is a joint evaluation that was done along with a nurse practitioner. The patient is doing well. The patient has no specific complaints. I was involved in a evaluation and I was present during this evaluation. This evaluation was done and more than 20 minutes. Her current cardiac rhythm is sinus. The patient is anticoagulated. The patient is ambulating. She is postop day #6. We'll continue to follow. I attest that information mentioned above.
[2022-01-14 16:41] LABS: Glucose,Whole Blood 143 mg/dL (75-99)
--- NOTE | 2022-01-14 19:21 | P.PN ---
Subjective Progress Note Date: 01/14/22 This is 71-year-old female patient of Dr. Agee who presented for an elective mitral valve replacement with Dr. Maher on 01/08/2022. Patient has a past medical history of congestive heart failure with dyspnea and was found to have severe mitral valve regurg. Additional medical history includes arthritis and anxiety. Patient is currently on mechanical ventilation postoperatively in the intensive care unit. Patient is currently sedated with propofol. Current vent settings before meals controlled rate of 14, tidal volume 450, FiO2 100% and PEEP of 5. Mediastinal and left-sided Chest tubes in place. Midline dressing is clean dry and intact. Cardiothoracic, critical care and cardiology services are following. Thank you for this consultation we will continue to follow patient closely throughout stay On 01/09/2022 patient was seen and examined in the ICU she is alert and oriented 3 in no apparent stress is extubated yesterday and is tolerating well, vital exam reveals a temperature of 99.5 pulse 80 respiration 12 blood pressure 111/57 pulse ox 92% on 2 L nasal cannula, patient is complaining of pain at the surgical site otherwise she denies any complaints. Patient was resumed on i nsulin and her glucose level is well-controlled at this time, will continue to follow closely. On 01/10/2022 patient is alert and oriented 3. Patient remains extubated resting comfortably in chair in intensive care unit. Patient reports some discomfort. Patient will be transitioned to sliding scale coverage for insulin. Heart rate 74, respiratory rate 20, blood pressure 120/61, oxygen saturation 97% on 2 L. Patient denies any nausea vomiting or diarrhea. Patient denies any urinary burning or frequency 01/11/2022 patient is alert and oriented 3. Patient remains in the intensive care unit. [place] has been removed. Patient has one chest tube. Per nursing staff blood sugars have been well controlled. Current temp 98.1, pulse rate 94 and respiratory rate 12, blood pressure 114/64. Patient satting 99% on 2 L On 01/12/2022 patient was seen and examined in the ICU she is alert and oriented 3 in no apparent distress there is no fever or chills no headache or dizziness no chest pain no shortness of breath no cough no nausea or vomiting no abdominal pain no diarrhea and no urinary symptoms, vital examination reveals a temperature of 97.9 pulse 82 respiration 14 blood pressure 132/76 pulse ox 94% on room air, white blood count 9.1 hemoglobin 8.4 platelet count, sodium 128 po tassium 3.6 chloride 98 CO2 29 BUN 17 creatinine 0.69 On 01/13/2022 patient was seen and examined on the telemetry floor she is alert and oriented 3 in no apparent distress, vital examination reveals a temperature of 98.1 pulse 89 respiration 18 blood pressure 99/63 pulse ox 96% on 2 L nasal cannula, white blood count is 8.3 hemoglobin 9.1 platelet count 252 sodium 133 potassium 3.2 chloride 98 CO2 27 BUN 14 creatinine 0.6 patient denies any chest pain or shortness of breath she is using incentive spirometry, patient is followed by pulmonary and cardiology she was started on amiodarone IV On 01/14/2022 patient was seen and examined on the telemetry floor she is alert and oriented 3 in no apparent distress she is sitting in a chair at the bedside she has minimal pain, vitals reveals a temperature of 97.9 pulse 88 respirations 16 blood pressure 113/69 pulse ox 95% on room air, labs revealed a white blood count of 8.8 hemoglobin 9.2 platelet count 273 sodium 133 potassium 4.2 chloride 102 CO2 27 BUN 13 creatinine 0.61, patient had episodes of atrial fibrillation she is followed by cardiology she is maintained on amiodarone, metoprolol and Eliquis, at this time no change from medical standpoint will recheck labs in a.m. Objective - Vital Signs Vital signs: Vital Signs Temp 98.6 F 01/14/22 16:00 Pulse 98 01/14/22 16:00 Resp 16 01/14/22 16:00 BP 122/71 01/14/22 16:00 Pulse Ox 96 01/14/22 16:00 Intake & Output 01/14/22 01/14/22 01/15/22 06:59 18:59 06:59 Intake Total 240 1734 Output Total 550 Balance 240 1184 Weight 67.3 kg Intake: Oral 240 1734 Output: Urine 550 Other: Voiding Method Toilet Toilet # Voids 1 1 ABP, PAP, CO, CI - Last Documented Arterial Blood Pressure 136/51 Pulmonary Artery Pressure 27/10 Cardiac Output 4.0 Cardiac Index 2.4 - Exam Head normocephalic Neck supple Lungs clear to auscultation bilaterally no wheezing or crackles Heart regular rate and rhythm S1-S2, no rub or gallop. Midline dressing clean dry and intact Abdomen is soft nontender nondistended positive bowel sounds no hepatosplenomegaly Extremities no edema Neuro - Labs CBC & Chem 7: 01/14/22 08:46 01/14/22 08:46 Labs: Abnormal Lab Results - Last 24 Hours (Table) 01/13/22 01/14/22 01/14/22 Range/Units 20:30 06:36 08:46 RBC 2.86 L (3.80-5.40) m/uL Hgb 9.2 L (11.4-16.0) gm/dL Hct 28.6 L (34.0-46.0) % Sodium (137-145) mmol/L Glucose (74-99) mg/dL POC Glucose (mg/dL) 123 H 108 H (75-99) mg/dL AST (14-36) U/L Total Protein (6.3-8.2) g/dL Albumin (3.5-5.0) g/dL 01/14/22 01/14/22 01/14/22 Range/Units 08:46 12:06 16:36 RBC (3.80-5.40) m/uL Hgb (11.4-16.0) gm/dL Hct (34.0-46.0) % Sodium 133 L (137-145) mmol/L Glucose 119 H (74-99) mg/dL POC Glucose (mg/dL) 111 H 143 H (75-99) mg/dL AST 37 H (14-36) U/L Total Protein 5.4 L (6.3-8.2) g/dL Albumin 2.9 L (3.5-5.0) g/dL Assessment and Plan Assessment: 1. Status post mitral valve repair on 01/08/[address] Maher. 2. History of severe mitral valve regurg with symptomatic dyspnea 3. History of arthritis 4. History of anxiety Patient remains in the intensive care unit Patient remains on mechanical ventilation and IV sedation Thank you for this consultation we'll continue to follow patient closely throughout stay
[2022-01-14 20:04] LABS: Glucose,Whole Blood 126 mg/dL (75-99)
[2022-01-14] MEDS: MELATONIN 3 MG TABLET PO SCH (20:17)
[2022-01-14] MEDS: APIXABAN 2.5 MG TABLET PO SCH (20:17)
[2022-01-14] MEDS: ACETAMINOPHEN TAB 325 MG TAB PO PRN (23:24)
[2022-01-15 06:08] LABS: Glucose,Whole Blood 105 mg/dL (75-99)
[2022-01-15] MEDS: INSULIN ASPART (NovoLOG) 100 UNIT/ML VIAL SQ SCH (06:14)
[2022-01-15] MEDS: PANTOPRAZOLE 40 MG TABLET PO SCH (06:38)
[2022-01-15 06:40] LABS: Basophils % (A) 0 %; Eosinophils # (A) 0.5 k/uL (0-0.7); Eosinophils % (A) 5 %; HCT 30.3 % (34.0-46.0); HGB 9.1 gm/dL (11.4-16.0); Hypochromasia Slight; Lymphocytes # (A) 1.4 k/uL (1.0-4.8); Lymphocytes % (A) 15 %; MCH 30.4 pg (25.0-35.0); MCV 101.3 fL (80.0-100.0); Macrocytosis Slight; Mean Platelet Volume 7.9; Monocytes # (A) 0.8 k/uL (0-1.0); Monocytes % (A) 8 %; Neutrophils # (A) 6.6 k/uL (1.3-7.7); Neutrophils % (A) 69 %; Platelet Count 349 k/uL (150-450); RBC 2.99 m/uL (3.80-5.40); RDW 14.3 % (11.5-15.5); WBC 9.5 k/uL (3.8-10.6)
[2022-01-15 06:56] LABS: ALT 27 U/L (4-34); AST 29 U/L (14-36); African American GFR (CKD) >90 (>60 ml/min/1.73 sqM); Alkaline Phosphatase 68 U/L (38-126); Anion Gap 0 mmol/L; Blood Urea Nitrogen 13 mg/dL (7-17); Calcium 8.6 mg/dL (8.4-10.2); Carbon Dioxide 31 mmol/L (22-30); Chloride 103 mmol/L (98-107); Glucose 99 mg/dL (74-99); Magnesium 2.2 mg/dL (1.6-2.3); Non-African American GFR(CKD) 87 (>60 ml/min/1.73 sqM); Potassium 4.4 mmol/L (3.5-5.1); Sodium 134 mmol/L (137-145); Total Protein 5.6 g/dL (6.3-8.2)
--- NOTE | 2022-01-15 07:12 | XR ---
EXAMINATION TYPE: XR chest 2V DATE OF EXAM: 01/15/2022 HISTORY: Post cardiac surgery COMPARISON: 01/14/2022 TECHNIQUE: Single view of the chest is submitted. FINDINGS: Sternotomy wires are noted in place. Cardiac valvular prosthesis noted. Small left greater than right pleural effusions persists. Mild basilar atelectasis. Hilar and mediastinal structures are within normal limits. Degenerative changes are seen of the dorsal spine. IMPRESSION: 1. Stable post cardiac surgery changes.
--- NOTE | 2022-01-15 07:46 | P.PN ---
Subjective Progress Note Date: 01/15/22 Principal diagnosis: Severe mitral regurgitation. Previous medical history of chronic diastolic heart failure, never smoker with mild lung disease, remote history of pneumonia, obstructive sleep apnea without CPAP use, arthritis. Vaccinated and boosted against Covid POD #7 mitral valve repair with #26 mm physio-2 ring, ligation of the left atrial appendage, epi-aortic ultrasound, and intraoperative transesophageal echocardiogram performed by anesthesia Postoperative acute blood loss anemia and thrombocytopenia, expected given hemodilution and cardiopulmonary bypass pump Postoperative paroxysmal atrial fibrillation, known common occurrence after cardiac surgery The patient was seen and examined this morning sitting up in a recliner on the cardiac stepdown unit in no acute distress. She states pain is controlled with current medication regimen, denies shortness of breath. No further episodes of atrial fibrillation, currently in sinus rhythm, hemodynamically stable. Patient has been ambulatory without difficulty, wanting to go home. No new concerns. Objective - Vital Signs Vital signs: Vital Signs Temp 97.6 F 01/15/22 04:00 Pulse 95 01/15/22 04:00 Resp 18 01/15/22 04:00 BP 128/78 01/15/22 04:00 Pulse Ox 97 01/15/22 04:00 Intake & Output 01/14/22 01/15/22 01/15/22 18:59 06:59 18:59 Intake Total 1734 Output Total 550 Balance 1184 Weight 65.5 kg Intake: Oral 1734 Output: Urine 550 Other: Voiding Method Toilet Toilet # Voids 1 1 ABP, PAP, CO, CI - Last Documented Arterial Blood Pressure 136/51 Pulmonary Artery Pressure 27/10 Cardiac Output 4.0 Cardiac Index 2.4 - Exam CONSTITUTIONAL: Appears comfortable, cooperative, no acute distress RESPIRATORY: Lungs sounds diminished bilaterally. Respirations even, nonlabored. Currently on room air with oxygen saturation 97%. Able to achieve 1000 mL on incentive spirometry. Strong cough. CARDIOVASCULAR: S1, S2 present. Regular rate and rhythm, sinus rhythm on telemetry. Sternum stable. Palpable peripheral pulses bilaterally. Trace bilateral lower extremity edema present. No calf pain or tenderness noted. Heart hugger in place with patient demonstrating appropriate use. Antiembolism stockings, SCDs present. GASTROINTESTINAL: Abdomen soft, nontender, nondistended. Active bowel sounds present 4 quadrants. Tolerating diet. Positive bowel movement GENITOURINARY: Continues to void INTEGUMENTARY: Skin is warm and dry with evidence of good perfusion. Anterior chest incision well approximated NEUROLOGIC: Cranial nerves II through XII intact MUSKULOSKELETAL: Able to move all extremities, strength equal bilaterally, gait normal PSYCHIATRIC: Alert and oriented to person place and time, appropriate affect, intact judgment and insight - Allied health notes Allied health notes reviewed: nursing - Labs CBC & Chem 7: 01/15/22 06:04 01/15/22 06:04 Labs: Abnormal Lab Results - Last 24 Hours (Table) 01/14/22 01/14/22 01/14/22 Range/Units 08:46 08:46 12:06 RBC 2.86 L (3.80-5.40) m/uL Hgb 9.2 L (11.4-16.0) gm/dL Hct 28.6 L (34.0-46.0) % MCV (80.0-100.0) fL MCHC (31.0-37.0) g/dL Sodium 133 L (137-145) mmol/L Carbon Dioxide (22-30) mmol/L Glucose 119 H (74-99) mg/dL POC Glucose (mg/dL) 111 H (75-99) mg/dL AST 37 H (14-36) U/L Total Protein 5.4 L (6.3-8.2) g/dL Albumin 2.9 L (3.5-5.0) g/dL 01/14/22 01/14/22 01/15/22 Range/Units 16:36 20:02 06:04 RBC 2.99 L (3.80-5.40) m/uL Hgb 9.1 L (11.4-16.0) gm/dL Hct 30.3 L (34.0-46.0) % MCV 101.3 H (80.0-100.0) fL MCHC 30.0 L (31.0-37.0) g/dL Sodium (137-145) mmol/L Carbon Dioxide (22-30) mmol/L Glucose (74-99) mg/dL POC Glucose (mg/dL) 143 H 126 H (75-99) mg/dL AST (14-36) U/L Total Protein (6.3-8.2) g/dL Albumin (3.5-5.0) g/dL 01/15/22 01/15/22 Range/Units 06:04 06:06 RBC (3.80-5.40) m/uL Hgb (11.4-16.0) gm/dL Hct (34.0-46.0) % MCV (80.0-100.0) fL MCHC (31.0-37.0) g/dL Sodium 134 L (137-145) mmol/L Carbon Dioxide 31 H (22-30) mmol/L Glucose (74-99) mg/dL POC Glucose (mg/dL) 105 H (75-99) mg/dL AST (14-36) U/L Total Protein 5.6 L (6.3-8.2) g/dL Albumin 3.0 L (3.5-5.0) g/dL - Imaging and Cardiology Chest x-ray: image reviewed Assessment and Plan Assessment: 1. Severe mitral regurgitation, status post MVR 2. History of chronic diastolic heart failure 3. Never smoker with mild lung disease, preoperative FEV1 68% of predicted 4. Remote history of pneumonia 5. Obstructive sleep apnea without CPAP use 6. Arthritis 7. Vaccinated and boosted against Covid 8. Postoperative acute blood loss anemia and thrombocytopenia, expected 9. Postoperative paroxysmal atrial fibrillation, known common occurrence after cardiac surgery Plan: 1. Continue aspirin, statin, beta oli therapy. Continue lisinopril for afterload reduction 2. Continue amiodarone for A. fib prophylaxis, Eliquis added yesterday 3. Encourage incentive spirometry 10 times every hour while awake. Bronchodilators per pulmonology 4. Increase activity, ambulate as tolerated. PT/OT/cardiac rehab following 5. GI/DVT prophylaxis 6. Pain control with current medication regimen 7. Insulin management per primary care service. Patient is not diabetic, preoperative hemoglobin A1c 5.2%, however patient does need tight blood sugar control to prevent infection and promote sternal union 8. Strict accurate intake and output. Daily weights. Patient to shower daily 9. Discharge planning in progress. Anticipate discharge to home with home care this morning Time with Patient: Greater than 30
[2022-01-15] MEDS: IPRATROPIUM-ALBUTEROL 3 ML NEB INHALATION SCH (08:02)
[2022-01-15 09:07] VITALS: BP 109/69; PULSE 93; RESP 17; TEMP 97.7
[2022-01-15] MEDS: MULTIVITAMINS, THERA 1 EACH TAB PO SCH (09:37)
[2022-01-15] MEDS: APIXABAN 2.5 MG TABLET PO SCH (09:37)
[2022-01-15] MEDS: ASPIRIN 81 MG PO SCH (09:37)
[2022-01-15] MEDS: AMIODARONE 200 MG TAB PO SCH (09:37)
[2022-01-15] MEDS: guaiFENesin 600 MG TABLET.ER PO SCH (09:37)
[2022-01-15] MEDS: ATORVASTATIN 40 MG TAB PO SCH (09:37)
[2022-01-15] MEDS: POTASSIUM CHLORIDE ER 20 MEQ TAB.ER PO SCH (09:38)
[2022-01-15] MEDS: METOPROLOL TARTRATE 25 MG TAB PO SCH (09:39)
[2022-01-15] MEDS: FUROSEMIDE 10 MG/ML 2 ML VIAL IV SCH (09:43)
--- NOTE | 2022-01-15 13:51 | P.DS ---
Providers Date of admission: 01/08/22 05:36 Expected date of discharge: 01/15/22 Attending physician: Ez Maher Consults: 01/08/22 12:14 Consult Physician Routine Consulting Provider: Acacia Bryan Consult Reason/Comments: It Business Process Architect Consult: post cardiac surgery Do you want consulting provider notified?: Yes Consult Physician Routine Consulting Provider: Saulo Hoyos Consult Reason/Comments: [facility] ubaldo; Cyndie patient Do you want consulting provider notified?: Yes Primary care physician: Kenyetta Agee Hospital Course: FINAL DIAGNOSIS: 1. Severe mitral regurgitation 2. Chronic diastolic heart failure 3. Never smoker with mild disease, preoperative FEV1 68% of predicted 4. Remote history of pneumonia 5. Obstructive sleep apnea without CPAP use 6. Arthritis 7. Vaccinated and boosted against Covid 8. Postoperative acute blood loss anemia and from sideropenia, expected 9. Postoperative paroxysmal atrial fibrillation, known common occurrence after cardiac surgery PRINCIPAL PROCEDURE: 1. Mitral valve repair with a #26 mm physio-2 ring 2. Ligation of the left atrial appendage 3. Epi-aortic ultrasound 4. Intraoperative transesophageal echocardiogram performed by anesthesia HISTORY OF PRESENT ILLNESS: This is a 71-year-old active female who follows on an outpatient basis with Dr. Agee for primary care and Dr. Ramos for card iology. 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 The patient was referred to Dr. Maher from cardiothoracic surgery. She was recommended to undergo mitral valve repair. The usual perioperative course was discussed in detail with the patient and her family, all risks and benefits were explained, all questions were answered, and consent was obtained to proceed with surgery. The patient was scheduled for surgery at the earliest possible date after obtaining dental clearance. HOSPITAL COURSE: The patient was brought to the hospital on 01/08/22, taken to the preoperative area, prepared in the usual fashion, and subsequently taken to the operating room where Dr. Maher performed mitral valve repair. Upon completion of surgery the patient was transferred to the cardiovascular intensive care unit where she was recovered and monitored hemodynamically. She was extubated, all lines, tubes, and drips were discontinued when appropriate, and she was transferred to 3 S. cardiac stepdown unit for further monitoring and rehabilitation. Her oxygen was titrated down, she continued to work with physical and occupational therapy, she was tolerating oral diet, her pain was controlled, and she was ready to be discharged to home with [facility] on postoperative day #7. She received written and verbal instruction regarding her medications, activity restrictions, signs and symptoms requiring physician notification, and follow-up appointments. Patient Condition at Discharge: Stable Plan - Discharge Summary Discharge Rx Participant: Yes New Discharge Prescriptions: New Amiodarone [Cordarone] 200 mg PO DAILY #14 tab Apixaban [Eliquis] 2.5 mg PO BID #30 tablet Potassium Chloride ER [K-Dur 20] 20 meq PO DAILY #7 tab Furosemide [Lasix] 20 mg PO DAILY #7 tab Atorvastatin [Lipitor] 40 mg PO DAILY #30 tab Metoprolol Tartrate [Lopressor] 25 mg PO BID #60 tab Pantoprazole [Protonix] 40 mg PO AC-BRKFST #30 tab Sennosides-Docusate Sodium [Senokot-S] 2 each PO HS PRN tab PRN Reason: Constipation lisinopriL [Zestril] 5 mg PO DAILY@1200 #30 tab Continue Fish Oil/Dha/Epa [Fish Oil 1,200 mg Fish Oil] 2,000 mg PO DAILY Multivitamins, Thera [Multivitamin (formulary)] 1 tab PO DAILY clonazePAM [KlonoPIN] 1 mg PO HS Turmeric Root Extract [Turmeric] 400 mg PO BID L.acidoph,Paracasei, B.lactis [Probiotic] 1 cap PO DAILY Cranberry Fruit Extract [Cranberry] 500 mg PO DAILY Ubidecarenone [Co Q-10] 200 mg PO DAILY Aspirin [Adult Low Dose Aspirin EC] 81 mg PO HS Vein Support Supplement 1 dose PO DAILY Acetaminophen [Tylenol Arthritis] 650 mg PO DIRECTED PRN PRN Reason: Pain Discontinued Ibuprofen 800 mg PO Q8H PRN PRN Reason: Pain Isosorbide Mononitrate ER [Imdur] 30 mg PO QAM Discharge Medication List Fish Oil/Dha/Epa [Fish Oil 1,200 mg Fish Oil] 2,000 mg PO DAILY 08/12/18 [History] Multivitamins, Thera [Multivitamin (formulary)] 1 tab PO DAILY 08/12/18 [History] Cranberry Fruit Extract [Cranberry] 500 mg PO DAILY 01/03/19 [History] L.acidoph,Paracasei, B.lactis [Probiotic] 1 cap PO DAILY 01/03/19 [History] Turmeric Root Extract [Turmeric] 400 mg PO BID 01/03/19 [History] clonazePAM [KlonoPIN] 1 mg PO HS 01/03/19 [History] Aspirin [Adult Low Dose Aspirin EC] 81 mg PO HS 05/22/21 [History] Ubidecarenone [Co Q-10] 200 mg PO DAILY 05/22/21 [History] Vein Support Supplement 1 dose PO DAILY 11/22/21 [History] Acetaminophen [Tylenol Arthritis] 650 mg PO DIRECTED PRN 01/02/22 [History] Amiodarone [Cordarone] 200 mg PO DAILY #14 tab 01/15/22 [Rx] Apixaban [Eliquis] 2.5 mg PO BID #30 tablet 01/15/22 [Rx] Atorvastatin [Lipitor] 40 mg PO DAILY #30 tab 01/15/22 [Rx] Furosemide [Lasix] 20 mg PO DAILY #7 tab 01/15/22 [Rx] Metoprolol Tartrate [Lopressor] 25 mg PO BID #60 tab 01/15/22 [Rx] Pantoprazole [Protonix] 40 mg PO AC-BRKFST #30 tab 01/15/22 [Rx] Potassium Chloride ER [K-Dur 20] 20 meq PO DAILY #7 tab 01/15/22 [Rx] Sennosides-Docusate Sodium [Senokot-S] 2 each PO HS PRN tab 01/15/22 [Rx] lisinopriL [Zestril] 5 mg PO DAILY@1200 #30 tab 01/15/22 [Rx] Follow up Appointment(s)/Referral(s): Acacia Bryan MD [STAFF PHYSICIAN] - 02/11/22 1:00 pm Peg Cabrales NPC [Nurse Practitioner] - 01/21/22 2:00 pm (You will be seen in the surgeon's office behind the hospital at [facility], [address], [address]. Office phone number is ) Rehab Varsha ARAMBULA,Cardiac [NON-STAFF] - 4 Weeks (You will be called in 4-6 weeks for evaluation for cardiac rehab) Kenyetta Agee MD [Primary Care Provider] - 01/23/22 2:15 pm Ez Maher MD [STAFF PHYSICIAN] - 02/06/22 1:15 pm [facility] [NON-STAFF] - Robbie Ramos MD [STAFF PHYSICIAN] - 01/24/22 2:15 pm Ambulatory/Diagnostic Orders: Complete Blood Count w/diff [LAB.AMB] Time Frame: 3 Days, Location: None Selected Comprehensive Metabolic Panel [LAB.AMB] Time Frame: 3 Days, Location: None Selected Activity/Diet/Wound Care/Special Instructions: DISCHARGE INSTRUCTIONS: 1. No driving for 4 weeks, or until physician gives their ok. 2. The patient should sleep in their own bed, no medical bed needed. 3. Stairs are not an issue. If the bedroom is upstairs, it is advised that the patient go up at night and down in the morning for the first week. Go slowly, using handrail and take 1 step at a time. 4. BRODY hose are to be worn for 30 days or until physician discontinues. 5. Heart hugger is to be worn 100% of the time until physician discontinues.(except when showering) 6. No lifting, pushing, or pulling more than 10 pounds for 12 weeks. The physician will advise of any restriction changes. 7. The patient is expected to continue the prescribed walking program. 8. Continue pain control per as needed orders. 9. Continue with incentive spirometry and splinting/heart hugger until otherwise directed by the physician. 10. Must shower daily using liquid antibacterial soap and a separate white washcloth for each individual incision. 11. Routine sternal incision care. No powders, lotions, ointments on incisions. No dressings are necessary on incisions unless they are draining. Dermabond tape is to remain on sternal incision until surgeon follow-up. 12. Please call surgeon/COLLECTIONS TECHNICIAN for temp greater than 101 F or purulent drainage from incisions. 13. Please weigh your self every morning, record and bring with you to follow- up appointments 14. All prescriptions given by surgeon for 30 days. Refills need to be filled through chrome tanner/primary care physician. 15. A Red armband has been placed on the patient. It should be worn for 30 days post surgery and will be removed by the cardiac surgeons. If an ER visit is necessary, please make sure the number on the Red armband is called. 16. You have been referred to and are expected to begin Cardiac Rehab in approximately 4-6 weeks. HOME HEALTH SERVICES TO PROVIDE: RN SKILLED HOME CARE SERVICES FOR POST-OP SURGICAL PATIENTS WITH THE FOLLOWING: Coronary Artery Bypass Surgery (CABG), Mitral Valve Replacement/Repair ( MVR), Aortic Valve Replacement/Repair (AVR) RN TO CONTINUE EDUCATION FROM ``ROAD TO A HEALTH HEART PATIENT EDUCATION MANUAL (GIVEN TO PATIENT IN THE HOSPITAL) MEDICATION RECONCILIATION WITH EDUCATION NEEDED ON FIRST HOME VISIT EMPHASIZE IMPORTANCE OF WEARING BREAST SUPPORT/HEART HUGGER ENCOURAGE USE OF INCENTIVE SPIROMETER 10 X EVERY HOUR WHILE AWAKE ENCOURAGE UTILIZATION OF LOWER EXTREMITY COMPRESSION STOCKINGS/BRODY HOSE and ELEVATE LEGS ABOVE LEVEL OF HEART WHILE AT REST. ENCOURAGE AMBULATION 3-5x/day INCREASING TOLERATES, WHILE AVOIDING EXTREMES IN TEMPERATURE FREQUENCY: RN TO OPEN THE PATIENT WITHIN 24 HOURS OF DISCHARGE FROM THE HOSPITAL WITH TELEHEALTH INSTALLED AT [facility] [place], RN TO VISIT 2-3 X A WEEK FOR 4 WEEKS ESTABLISHED BY PATIENT NEEDS. LABORATORY: CBC, CMP TO BE DRAWN ON THE THIRD DAY HOME, (RAN STAT) FAX RESULTS TO [phone]. TELEHEALTH PARAMETERS: WEIGHT: NOTIFY MD OF WEIGHT GAIN OF 2 LBS IN 24 HOURS OR 5 LBS IN ONE WEEK HR: NOTIFY MD OF HR <55 BPM OR HR>100 BPM BP: NOTIFY MD IF BP <90/55 OR BP>140/100 O2 SAT: NOTIFY MD IF PO2<93% ON ROOM AIR SEND TELEHEALTH REPORT TO PERSONAL VEHICLE ADVISOR AND CARDIOVASCULAR SURGEON THE FIRST WEEK OF CARE AND THEN BI-WEEKLY. PLEASE ADDITIONALLY COMMUNICATE ANY ABNORMALS AND NEW FINDINGS TO THE SURGEONS OFFICE. Discharge Disposition: HOME WITH HOME HEALTH SERVICES
== END 2022-01-15 10:37 | disposition home health service (06) | DRG 220 ==
LOC: 2ORMAIN 05:36 → 2SICU 11:34 → 3SCARD 01-12 13:59
PROVIDERS: ADMIT Thoracic Surgery (Cardiothoracic Vascular Surgery); ATTEND Thoracic Surgery (Cardiothoracic Vascular Surgery)
PROC: 30243N1 Transfusion of Nonautologous Red Blood Cells into Central Vein, Percutaneous Approach (ICD-10-PCS; 2022-01-08)
PROC: 02UG0JZ Supplement Mitral Valve with Synthetic Substitute, Open Approach (ICD-10-PCS; principal; 2022-01-08 08:00)
PROC: B24BZZ4 Ultrasonography of Heart with Aorta, Transesophageal (ICD-10-PCS; principal; 2022-01-08 08:00)
PROC: 5A1221Z Performance of Cardiac Output, Continuous (ICD-10-PCS; principal; 2022-01-08 08:00)
PROC: 02L70ZK Occlusion of Left Atrial Appendage, Open Approach (ICD-10-PCS; principal; 2022-01-08 08:00)
DX: I34.0 Nonrheumatic mitral (valve) insufficiency (principal); I50.32 Chronic diastolic (congestive) heart failure; D62 Acute posthemorrhagic anemia; D69.6 Thrombocytopenia, unspecified; I48.0 Paroxysmal atrial fibrillation; Z20.822 Contact with and (suspected) exposure to COVID-19; I34.1 Nonrheumatic mitral (valve) prolapse; G47.33 Obstructive sleep apnea (adult) (pediatric); J98.4 Other disorders of lung; M41.9 Scoliosis, unspecified; M19.90 Unspecified osteoarthritis, unspecified site; G47.00 Insomnia, unspecified; F41.9 Anxiety disorder, unspecified; I99.9 Unspecified disorder of circulatory system; Z91.19 Patient's noncompliance with other medical treatment and regimen; Z79.82 Long term (current) use of aspirin; Z79.899 Other long term (current) drug therapy; Z98.891 History of uterine scar from previous surgery; Z90.49 Acquired absence of other specified parts of digestive tract; Z87.19 Personal history of other diseases of the digestive system; Z96.651 Presence of right artificial knee joint; Z87.39 Personal history of other diseases of the musculoskeletal system and connective tissue; Z86.16 Personal history of COVID-19; Z87.01 Personal history of pneumonia (recurrent); Z98.890 Other specified postprocedural states; Z71.3 Dietary counseling and surveillance; Z83.3 Family history of diabetes mellitus; Z82.61 Family history of arthritis
CPT/HCPCS: 71045; 71046; 80048; 80053; 82330; 82805; 83735; 84132; 85025; 85027; 85520; 85610; 85730; 86850; 86891; 86900; 86901; 86920; 87635; 94640; 94760

== ENCOUNTER → 2022-04-16 | Outpatient (CLI) | payer MEDICARE ==
--- NOTE | 2022-04-17 11:41 | MM ---
Reason for Exam: Screening (asymptomatic). Last mammogram was performed 1 year(s) and 3 month(s) ago. Patient History: Menarche at age 10. First Full-Term at age 15. Postmenopausal. Other cancer. Estrogen for 6 years from age 50 until age 56. Progesterone for 6 years from age 50 until age 56. Patient used Hormonal Contraceptives for 15 years. Maternal aunt had breast cancer, age 75. Risk Values: Kristin 5 year model risk: 1.4%. NCI Lifetime model risk: 3.6%. Prior Study Comparison: 12/08/2018 Bilateral Screening Mammogram, [facility]. 01/03/2020 Bilateral Screening Mammogram, [facility]. 02/13/2021 Bilateral Screening Mammogram, [facility]. Tissue Density: There are scattered fibroglandular densities. Findings: Analyzed By CAD. No significant changes when compared with prior studies. Benign bilateral vascular calcifications. Benign oil cyst calcification anteriorly on the left. Overall Assessment: Negative, BI-RAD 1 Management: Screening Mammogram of both breasts in 1 year. Electronically signed and approved by: Daly Bhatia M.D. Radiologist
== END | disposition home or self-care (01) ==
LOC: RADMAMWWP 12:25
PROVIDERS: ATTEND Family Medicine
DX: Z12.31 Encounter for screening mammogram for malignant neoplasm of breast (principal); Z78.0 Asymptomatic menopausal state; Z80.3 Family history of malignant neoplasm of breast
CPT/HCPCS: 77063; 77067

== ENCOUNTER → 2023-04-17 | Outpatient (CLI) | payer MEDICARE ==
--- NOTE | 2023-04-20 08:25 | MM ---
Reason for Exam: Screening (asymptomatic). Last screening mammogram was performed 12 month(s) ago. Patient History: Menarche at age 10. First Full-Term at age 15. Postmenopausal. Other cancer. Estrogen for 6 years from age 50 until age 56. Progesterone for 6 years from age 50 until age 56. Patient used Hormonal Contraceptives for 15 years. Maternal aunt had breast cancer, age 75. Sister had breast cancer, age 80. Risk Values: Kristin 5 year model risk: 3.6%. NCI Lifetime model risk: 8.7%. Prior Study Comparison: 01/03/2020 Bilateral Screening Mammogram, [facility]. 02/13/2021 Bilateral Screening Mammogram, [facility]. 04/16/2022 Bilateral MG 3D screening mammo w/cad, [facility]. Tissue Density: There are scattered fibroglandular densities. Findings: Analyzed By CAD. There is benign appearing vascular calcification in the bilateral breasts redemonstrated. There is no suspicious group of microcalcifications or new suspicious mass in either breast. Overall Assessment: Negative, BI-RAD 1 Management: Screening Mammogram of both breasts in 1 year. . Patient should continue monthly self-breast exams. A clinical breast exam by your physician is recommended on an annual basis. This exam should not preclude additional follow-up of suspicious palpable abnormalities. Note on Kristin scores and lifetime risk: 1. A Kristin score greater than 3% is considered moderate risk. If this is the case, consider specialist referral to assess eligibility for a risk reducing agent. 2. If overall lifetime risk for the development of breast cancer is 20% or higher, the patient may qualify for future screening with alternating mammogram and breast MRI. Electronically signed and approved by: Lenin Oliveira M.D.
== END | disposition home or self-care (01) ==
LOC: RADMAMWWP 09:14
PROVIDERS: ATTEND Family Medicine
DX: Z12.31 Encounter for screening mammogram for malignant neoplasm of breast (principal); Z78.0 Asymptomatic menopausal state; Z80.3 Family history of malignant neoplasm of breast
CPT/HCPCS: 77063; 77067

== ENCOUNTER → 2024-04-18 | Outpatient (CLI) | payer MEDICARE ==
--- NOTE | 2024-04-19 11:53 | MM ---
Reason for Exam: Screening (asymptomatic). Last screening mammogram was performed 12 month(s) ago. Patient History: Menarche at age 10. First Full-Term at age 15. Postmenopausal. Other cancer. Estrogen for 6 years from age 50 until age 56. Progesterone for 6 years from age 50 until age 56. Patient used Hormonal Contraceptives for 15 years. Maternal aunt had breast cancer, age 75. Sister had breast cancer, age 80. Sister tested for BRCA1 outcome was negative. Risk Values: Kristin 5 year model risk: 3.6%. NCI Lifetime model risk: 8.2%. Prior Study Comparison: 02/13/2021 Bilateral Screening Mammogram, [facility]. 04/16/2022 Bilateral MG 3D screening mammo w/cad, [facility]. 04/17/2023 Bilateral MG 3D screening mammo w/cad, [facility]. Tissue Density: The breasts are almost entirely fatty. Findings: Analyzed By CAD. Right breast: There is no suspicious group of microcalcifications or new suspicious mass. Benign-appearing calcifications right breast. Left breast: There is no suspicious group of microcalcifications or new suspicious mass. Benign-appearing calcifications left breast. Overall Assessment: Benign, BI-RAD 2 Management: Screening Mammogram of both breasts in [address] [facility] will attempt to contact patient to return for supplemental views and ultrasound if indicated. Patient should continue monthly self-breast exams. A clinical breast exam by your physician is recommended on an annual basis. This exam should not preclude additional follow-up of suspicious palpable abnormalities. Note on Kristin scores and lifetime risk: 1. A Kristin score greater than 3% is considered moderate risk. If this is the case, consider specialist referral to assess eligibility for a risk reducing agent. 2. If overall lifetime risk for the development of breast cancer is 20% or higher, the patient may qualify for future screening with alternating mammogram and breast MRI. Electronically signed and approved by: Kevyn Gutierrez DO
== END | disposition home or self-care (01) ==
LOC: RADMAMWWP 10:25
PROVIDERS: ATTEND Family Medicine
DX: Z12.31 Encounter for screening mammogram for malignant neoplasm of breast (principal); Z80.3 Family history of malignant neoplasm of breast; Z78.0 Asymptomatic menopausal state
CPT/HCPCS: 77063; 77067

== ENCOUNTER → 2025-05-26 | Outpatient (CLI) | payer MEDICARE ==
--- NOTE | 2025-05-26 14:38 | BD ---
EXAMINATION TYPE: Axial Bone Density DATE OF EXAM: 05/26/2025 CLINICAL HISTORY: 74 years old Female. ICD-10 CODE: Z780 ASYMPTO [place] , Additional History: Height: 61.5 in Weight: 132 lbs EXAM MEASUREMENTS: Bone mineral densitometry was performed using the [employer] System. Bone mineral density as measured about the Lumbar spine is: ----- L1-L4(G/cm2): 0.887 T Score Values are as follows: ----- L1: -2.7 ----- L2: -2.0 ----- L3: -3.2 ----- L4: -2.1 ----- L1-L4: -2.4 Z Score Values are as follows: ----- L1: -0.8 ----- L2: 0.0 ----- L3: -1.2 ----- L4: -0.2 ----- L1-L4: -0.5 Bone mineral density has: Decreased -22.4% since study of: 12/07/2017 Bone mineral density about the R hip (g/cm2): 0.771 Bone mineral density about the L hip (g/cm2): 0.819 T Score values are as follows: -----R Neck: -2.4 -----L Neck: -1.8 -----R Total: -1.9 -----L Total: -1.5 Z Score values are as follows: -----R Neck: -0.3 -----L Neck: 0.3 -----R Total: 0.0 -----L Total: 0.4 Bone mineral density has: Decreased -13.8% since study of: 12/07/2017 FRAX%s: The graph provided illustrates a 16.2% chance for a major osteoporotic fx and a 5.1% chance f or the hips probability for fx in 10 years time. IMPRESSION: Osteopenia (T Score between -2.5 and -1). There is slightly increased risk of fracture and the patient may be considered for treatment. Re-Screen 2-5 years. NOTE: T-SCORE=SD OF THE YOUNG ADULT MEAN. [facility], , 05/26/2025 2:36 PM
--- NOTE | 2025-05-26 14:53 | MM ---
Reason for Exam: Screening (asymptomatic). Last mammogram was performed 1 year(s) and 1 month(s) ago. Patient History: Menarche at age 10. First Full-Term at age 15. Postmenopausal. Other cancer. Estrogen for 6 years from age 50 until age 56. Progesterone for 6 years from age 50 until age 56. Patient used Hormonal Contraceptives for 15 years. Maternal aunt had breast cancer, age 75. Sister had breast cancer, age 80. Sister tested for BRCA1 outcome was negative. Risk Values: Kristin 5 year model risk: 3.6%. NCI Lifetime model risk: 7.7%. Prior Study Comparison: 04/16/2022 Bilateral MG 3D screening mammo w/cad, [facility]. 04/17/2023 Bilateral MG 3D screening mammo w/cad, [facility]. 04/18/2024 Bilateral MG 3D screening mammo w/cad, [facility]. Tissue Density: There are scattered areas of fibroglandular density. Findings: Analyzed By CAD. Benign appearing vascular calcification bilaterally is redemonstrated. There is no suspicious group of microcalcifications or new suspicious mass in either breast. Overall Assessment: Negative, BI-RAD 1 Management: Screening Mammogram of both breasts in 1 year. . Patient should continue monthly self-breast exams. A clinical breast exam by your physician is recommended on an annual basis. This exam should not preclude additional follow-up of suspicious palpable abnormalities. Note on Kristin scores and lifetime risk: 1. A Kristin score greater than 3% is considered moderate risk. If this is the case, consider specialist referral to assess eligibility for a risk reducing agent. 2. If overall lifetime risk for the development of breast cancer is 20% or higher, the patient may qualify for future screening with alternating mammogram and breast MRI. [facility], , 05/26/2025 2:49 PM. Electronically signed and approved by: Lenin Oliveira M.D.
== END | disposition home or self-care (01) ==
LOC: RADBDWWP 13:33
PROVIDERS: ATTEND Family Medicine
DX: Z12.31 Encounter for screening mammogram for malignant neoplasm of breast (principal); R92.323 Mammographic fibroglandular density, bilateral breasts; M85.89 Other specified disorders of bone density and structure, multiple sites; Z78.0 Asymptomatic menopausal state; Z80.3 Family history of malignant neoplasm of breast; M81.0 Age-related osteoporosis without current pathological fracture
CPT/HCPCS: 77063; 77067; 77080